=== PATIENT | female | born 1955 | race Caucasian/White ===

== ENCOUNTER 2018-07-07 04:03 | Emergency (ER) | payer MEDICAID, SELFPAY ==
[2018-07-07 04:07] VITALS: BP 170/89; PULSE 104; RESP 20; TEMP 36.7; O2SAT 96
[2018-07-07 04:22] VITALS: RESP 18
--- NOTE | 2018-07-07 04:27 | ED.GENADUL_ITS ---
Discharge Plan Disposition Patient Disposition: HOME Condition: Improving Discharge Details Chief Complaint: GenMedical Clinical Impression: Sinus infection, Sinus headache, Nausea Primary Care Provider: Koby Trimble ED Provider: Stephenie Almendarez Home Meds and New Rx's Prescriptions: New doxycycline hyclate 100 mg capsule 100 mg PO BID 7 Days Qty: 14 RF: 0 fluticasone [Flonase Allergy Relief] 50 mcg/actuation spray,suspension 1 spray CATALINA DAILY Qty: 16 RF: 0 Continue multivitamin [Daily Multi-Vitamin] 1 EACH tablet 1 ea PO DAILY RF: 0 omeprazole 10 MG capsule,delayed release(DR/EC) 20 mg PO DAILY RF: 0 simvastatin 20 MG tablet 40 mg PO DAILY RF: 0 metformin 1,000 MG tablet 1,000 mg PO BID RF: 0 vitamin E 400 UNIT capsule 400 unit PO DAILY RF: 0 ciclopirox [Loprox] 45 GM gel 45 gm Topical DAILY RF: 0 vitamin [id number] factor [Martinic] 1 EACH capsule 1 tab PO DAILY RF: 0 aspirin 325 MG tablet 325 mg PO DAILY Qty: 30 RF: 1 acetaminophen [Mapap Extra Strength] 500 MG tablet 1,000 mg PO Q8H PRN PRNQty: 100 RF: 3 latanoprost 0.005 % Drops 1 drp ophthalmic (eye) DAILY RF: 0 glyburide 5 mg Tablet 5 mg PO DAILY RF: 0 ibuprofen 800 mg Tablet 800 mg PO BID PRNRF: 0 indomethacin 50 mg Capsule 50 mg PO DAILY RF: 0 pioglitazone [Actos] 30 mg Tablet 30 mg PO DAILY RF: 0 cholecalciferol (vitamin D3) [Vitamin D3] 1,000 unit Capsule 1,000 unit PO DAILY RF: 0 omega 4-xcu-ona-fish oil [Fish Oil] 1,000 mg (120 mg-180 mg) Capsule 1,000 mg PO DAILY RF: 0 Discharge Instructions Instructions: Sinusitis (ED), Acute Nausea and Vomiting (ED), General Headache (ED) Additional Instructions: Drink plenty of fluids and get plenty of rest. Take the antibiotics until finished. Call your primary care doctor today to schedule follow-up appointment for evaluation. Return immediately to the emergency department any worsening or new concerning symptoms. Discharge Data Discharge Date/Time-TO BE ENTERED AT DEPARTURE: 07/07/18 06:19 Discharge Physician: Stephenie Almendarez Medical Decision Making 62-year-old female with a history of diabetes, hypertension, TIA who presents with multiple complaints since 6 PM last night. Main complaint is nausea, and frontal sinus headache. Also c/o nasal congestion, postnasal drip, cough with chest congestion, chest pain, neck pain, back pain, urinary frequency, dizziness. Blood pressure hypertensive, remainder vitals within normal limits. Afebrile. Patient appears nontoxic and in no acute distress. She has significant tenderness to palpation of her bilateral frontal and left maxillary sinuses. Left TM dull. Posterior pharynx normal. No uvular edema, exudates, submandibular swelling, drooling. Lungs clear to auscultation. Abdomen soft and nontender. No focal deficits. Differential diagnosis most likely appears consistent with sinus infection, migraine. Patient may also have a viral URI, flu, or viral syndrome, UTI. Denies sudden onset of headache or thunderclap quality making SAH unlikely. Denies fever and no meningeal signs, making meningitis unlikely. Considering patient's age and history, will check a CT head, chest x-ray, labs, urinalysis, EKG and give bolus IV fluids, Zofran and Decadron. If CT head negative, will give a dose of Toradol. EKG notes a rate of 89, sinus, no acute ST elevation or depression, T wave inversion in lead III. Q TC 482. QRS 100. QT interval of 480 can be normal in postpubertal females. No acute change from previous EKG. QTC from EKG July 2017 was 479. 0520 --labs and imaging reviewed and unremarkable. CT head and chest x-ray negative for acute findings. Magnesium 1.3. Troponin negative. Urinalysis negative. 0540 --patient feels much better and is requesting to go home. Denies chest pain. She thinks she was on Augmentin 1 month ago for a sinus infection so we will switch to doxycycline today. She is requesting to take the dose at home with her so she can eat first and is requesting one dose for tonight. Offered dose of magnesium here but she has this at home and would rather take it later. She is instructed to call her primary care doctor today to schedule follow-up for reevaluation. She is instructed to return here immediately if worse HPI General Mode of arrival: ambulatory . Date/Time Provider Initiated Documentation: 07/07/18 04:17 . Limitations to Documentation: no limitations . Information obtained by: patient . HPI Narrative: Patient is a 62-year-old female who presents to the ED with multiple complaints since 6 PM last. Patient states she was tossing and turning in bed and decided to come to the ED. Patient states her symptoms started with sneezing last night. She initially complained of sinus headache, nausea, nasal congestion, postnasal drip and then additionally complained of cough with chest congestion, chest pain, mid back pain, neck pain, burning in throat, left ear pain, dizziness, shortness of breath, and urinary frequency. Patient states her main complaint is the nausea and frontal headache. Patient states she had similar symptoms of headache and nasal congestion and was seen by her primary care doctor and was diagnosed with a sinus infection and treated with antibiotics and states her symptoms resolved. Past medical history: TIA, HTN, DM, HO Surgical history: Wrist repair, Tubal ligation, Rotator cuff repair, R oophrectomy, Appendectomy Social history: Denies tobacco, alcohol or drugs Medications: See list Allergies: Tetanus PCP: Dr. Olivarez Related Data Home Medications Medication Instructions Recorded Confirmed ciclopirox [Loprox] 45 gm TOPICAL DAILY NS 11/27/12 07/07/18 metformin 1,000 mg PO BID NS 11/27/12 07/07/18 multivitamin [Daily Multi-Vitamin] 1 ea PO DAILY NS 11/27/12 07/07/18 omeprazole 20 mg PO DAILY tab-cap NS 11/27/12 07/07/18 simvastatin 40 mg PO DAILY tab-cap NS 11/27/12 07/07/18 vitamin E 400 unit PO DAILY NS 11/27/12 07/07/18 vitamin N14-[id number] factor 1 tab PO DAILY 12/08/12 07/07/18 [Martinic] acetaminophen [Mapap Extra 1,000 mg PO Q8H PRN PRN #100 tab 08/31/17 07/07/18 Strength] aspirin 325 mg PO DAILY #30 tab-cap NS 08/31/17 07/07/18 cholecalciferol (vitamin D3) 1,000 unit PO DAILY 07/07/18 07/07/18 [Vitamin D3] doxycycline hyclate 100 mg PO BID 7 Days #14 cap 07/07/18 fluticasone [Flonase Allergy 1 spray CATALINA DAILY #16 gm 07/07/18 Relief] glyburide 5 mg PO DAILY 07/07/18 07/07/18 ibuprofen 800 mg PO BID PRN 07/07/18 07/07/18 indomethacin 50 mg PO DAILY 07/07/18 07/07/18 latanoprost 1 drp OPHTHALMIC (EYE) DAILY 07/07/18 07/07/18 omega 1-ysq-bvm-fish oil [Fish Oil] 1,000 mg PO DAILY 07/07/18 07/07/18 pioglitazone [Actos] 30 mg PO DAILY 07/07/18 07/07/18 Previous Rx's Medication Instructions Recorded acetaminophen [Mapap Extra 1,000 mg PO Q8H PRN PRN #100 tab 08/31/17 Strength] aspirin 325 mg PO DAILY #30 tab-cap NS 08/31/17 doxycycline hyclate 100 mg PO BID 7 Days #14 cap 07/07/18 fluticasone [Flonase Allergy 1 spray CATALINA DAILY #16 gm 07/07/18 Relief] Allergies Allergy/AdvReac Type Severity Reaction Status Date / Time tetanus toxoid, adsorbed Allergy Severe Anaphylaxsi Unverified 07/07/18 04:11 s Latex, Natural Rubber Allergy Intermediate Hives, Unverified 07/07/18 04:11 bandaids General Stated Complaint: GenMedical LINUS: 3 Review of Systems Review of Systems All systems reviewed & are unremarkable except as noted in HPI and below Constitutional Denies chills, Denies excessive sweating, Denies fatigue, Denies fever(s), Reports headache(s), Denies weakness and Denies weight loss Eyes Reports system reviewed and no additional complaints, except as docu and Denies blurry vision ENT Denies vertigo, Reports dizziness, Reports otalgia, Reports headache(s), Reports nasal congestion, Reports sore throat and Denies throat swelling Cardiovascular Reports chest pain, Denies syncope, Denies rapid heart rate and Reports dyspnea Respiratory Reports dyspnea Gastrointestinal Denies abdominal pain, Denies diarrhea, Reports nausea and Denies vomiting Genitourinary Denies hematuria, Reports urinary frequency, Denies dysuria and Denies flank pain Musculoskeletal Reports back pain and Denies joint swelling Integumentary/Breasts Denies lesions and Denies rash Neurologic Denies behavioral changes, Denies confusion, Denies vertigo, Reports dizziness, Denies syncope, Reports headache(s) and Denies weakness Psychiatric Denies behavioral changes, Denies confusion and Denies depression Endocrine Denies excessive sweating and Denies fatigue Hematologic/Lymphatic Denies easy bruising and Denies lymphadenopathy Allergic/Immunologic Denies throat swelling PFSH Family History Mother Diabetes Father Hypertensive disorder, systemic arterial Crohn's disease Cerebrovascular accident Medical History Benign hypertension Diabetes mellitus Hyperlipidemia Nonalcoholic steatohepatitis (HO) Transient ischemic attack Social History Smoking/Tobacco Use Status: Former Tobacco Use Surgical History Appendectomy Diagnostic Laproscopy Ligation of fallopian tube Oophrectomy, Right Rotator Cuff Repair repair wrist Exam Const General: cooperative and healthy appearing Orientation: alert and awake HENMT Head: normal to inspection Ears: hearing grossly normal bilaterally, external ears normal, TM normal on the right and TM normal on the left (Dull, w/o erythema ) General nose exam: external nose normal, nares normal and no nasal discharge Face and sinus: sinus tenderness (b/l frontal and L maxillary ) Mouth: oral mucosae normal Teeth and gingiva: dentition normal Throat: posterior oropharynx normal, uvula midline, no peritonsillar masses and no uvular edema Eyes General: appearance normal, both eyes and all related structures Eyelids: eyelids normal Pupils: PERRL EOM: EOM intact bilaterally Direct ophthalmoscopy: photophobia Neck Neck: normal visual inspection Lymphatic: no lymphadenopathy noted Chest Chest: normal inspection of the chest Resp Effort & Inspection: normal respiratory effort and able to speak in complete sentences Auscultation: clear to auscultation bilaterally Cardio Rate: regular rate Rhythm: regular rhythm GI Inspection: normal to inspection Palpation: soft, not firm, no guarding, no hepatosplenomegaly, no masses and nontender Auscultation: normal bowel sounds Back/Spine/Pelvis Back: no CVA tenderness Skin General skin exam: no rashes or lesions noted Neuro General: alert, awake and oriented x3 Cranial Nerves: CN's II-XI intact bilaterally Cognition: normal cognition Speech: speech normal Gait: normal gait Motor: muscle tone normal throughout and strength 5/5 throughout Sensory Exam: no sensory deficits noted Extrem General: normal to inspection, full ROM, normal capillary refill and no edema Psych Appearance: grossly normal Mental Status: mental status grossly normal Speech and Movement: speech and movement normal Affect: normal affect Thought Process: normal Course Vital Signs Temperature 98.1 F 07/07/18 04:07 Pulse 104 H 07/07/18 04:07 Respiratory Rate 20 07/07/18 04:07 Blood Pressure 170/89 H 07/07/18 04:07 Pulse Oximetry 96 07/07/18 04:07 Temperature 98.1 F 07/07/18 04:07 Temperature Source Temporal Artery Scan 07/07/18 04:07 Pulse 104 H 07/07/18 04:07 Respiratory Rate 20 07/07/18 04:07 Respiratory Effort Non-Labored 07/07/18 04:07 Blood Pressure 170/89 H 07/07/18 04:07 Blood Pressure Position Sitting 07/07/18 04:07 Pulse Oximetry 96 07/07/18 04:07 Oxygen Delivery Method Room Air 07/07/18 04:07 Oxygen Flow Rate 0 07/07/18 04:07
[2018-07-07 04:32] LABS: Bilirubin Negative (Negative); Blood Negative (Negative); Clarity Clear; Glucose Negative (Negative); Ketones Negative (Negative); Leukocyte Esterase Negative (Negative); Nitrite Negative (Negative); Urobilinogen 0.2 EU/dL (Up TO 0.2)
--- NOTE | 2018-07-07 04:50 | DI.CT_ITS ---
SYMPTOMS/DIAGNOSIS: HEADACHE, SINUS CONGESTION, SINUS PRESSURE, EAR PAIN, NAUSEA, COUGH, SUDDEN ONSET CT BRAIN: Noncontrast examination. Comparison MRI is 01/11/08. There is mild global cerebral atrophy. There are areas of decreased attenuation in the white matter , most consistent with small vessel ischemic disease. No acute intracranial hemorrhage, infarct, midline shift or mass effect is identified. The ventricles are intact. The basilar cisterns are patent. There do appear to be findings suggestive of empty sella. The visualized paranasal sinuses are clear. The mastoid air cells are well pneumatized. The calvarium is intact. IMPRESSION: No acute intracranial process. Followup as clinically appropriate.
--- NOTE | 2018-07-07 04:50 | DI.RAD_ITS ---
SYMPTOMS/DIAGNOSIS: COUGH, CHEST CONGESTION, ? ACUTE DISEASE CHEST X-RAY, PA AND LATERAL: There are no priors for comparison. The heart size and pulmonary vasculature are within normal limits. There is extensive calcification of the mitral valve. No effusions, infiltrates or pneumothoraces are identified. There is a question of an ovoid 0.7 cm density overlying the anterior aspect of the right 5th rib. This may represent a pulmonary or osseous nodule. Followup as clinically appropriate. Degenerative changes are seen in the spine. IMPRESSION: 1. No acute pulmonary process. 2. Question of a right pulmonary nodule. Followup is as clinically indicated. A CT scan of the chest should be considered for further evaluation.
--- NOTE | 2018-07-07 04:58 | DI.VRAD_ITS ---
EXAM: CT Head Without Intravenous Contrast EXAM DATE/TIME: 07/07/2018 4:22 AM CLINICAL HISTORY: 62 years old, female; Pain; Headache; Headache not specified; Patient HX: Sinus congestion, dizziness, and headache TECHNIQUE: Axial computed tomography images of the head/brain without intravenous contrast. All CT scans at this facility use at least one of these dose optimization techniques: automated exposure control; mA and/or kV adjustment per patient size (includes targeted exams where dose is matched to clinical indication); or iterative reconstruction. Coronal and sagittal reformatted images were created and reviewed. COMPARISON: No relevant prior studies available. FINDINGS: Brain: Decreased periventricular and subcortical attenuation compatible with chronic white matter ischemic change. No acute cerebrovascular accident. No acute intracranial hemorrhage. Ventricles: Prominent ventricles and cortical sulci compatible with mild volume loss/atrophy. Sella: Mild changes of empty sella. Bones/joints: Unremarkable. No acute fracture. Sinuses: Unremarkable as visualized. No acute sinusitis. Mastoid air cells: Unremarkable as visualized. No mastoid effusion. Soft tissues: Unremarkable. Vasculature: Atherosclerotic calcification intracranial vasculature without aneurysm. IMPRESSION: 1. No acute intracranial abnormalities. 2. If symptoms/signs persist, or if there is concern of an occult intracranial abnormality, then followup short interval CT or MRI would be recommended for further evaluation. Dictated and Authenticated by: Fox Acosta MD. Ordering:WILMAN SUERO MD
--- NOTE | 2018-07-07 05:00 | DI.VRAD_ITS ---
EXAM: XR Chest, 2 Views EXAM DATE/TIME: 07/07/2018 4:22 AM CLINICAL HISTORY: 62 years old, female; Signs and symptoms; Cough; Patient HX: Congestion, cough, ear pain, headache, nausea TECHNIQUE: XR of the chest, 2 views. COMPARISON: No relevant prior studies available. FINDINGS: Lungs: Lungs mildly hyperinflated but clear of an acute process. Pleural space: Unremarkable. No pleural effusion. No pneumothorax. Heart/Mediastinum: Heart size normal. Calcified mitral annulus. Vasculature: Atherosclerotic calcification within the aorta without aneurysm. Bones/joints: Degenerative changes noted throughout the spine. IMPRESSION: Mild hyperinflation. No acute intrathoracic process. Dictated and Authenticated by: Fox Acosta MD. Ordering:WILMAN SUERO MD
[2018-07-07] MEDS: Dexamethasone 10 MG/ML VIAL IVP (05:06)
[2018-07-07] MEDS: Prochlorperazine 10 MG/2 ML VIAL IVP (05:06)
[2018-07-07] MEDS: Normal Saline 1,000 ML 1000 ML IV (05:06)
[2018-07-07] MEDS: Ketorolac 30 MG/ML VIAL IVP (05:06)
[2018-07-07 05:07] LABS: Abs Immature Grans 0.01 k/cumm (0.0-0.09); Absolute Basophil Count 0.02 k/cumm (0.0-0.2); Absolute Eosinophil Count 0.05 k/cumm (0.0-0.7); Absolute Lymphocyte Count 1.51 k/cumm (1.2-3.4); Absolute Monocyte Count 0.55 k/cumm (0.11-0.7); Absolute Neutrophil Count 3.63 k/cumm (1.2-6.7); Basophils % 0.3; Eosinophils % 0.9; HGB 12.9 g/dL (12.0-15.5); Immature Grans % 0.2; Lymphocytes % 26.2; Mean Corp. HGB Concentration 33.9 g/dL (32.0-36.0); Mean Corpuscular Hemoglobin 32.3 pg (27.0-33.0); Mean Corpuscular Volume 95.2 fL (80-95); Mean Platelet Volume 9.1 fL (8.0-11.0); Monocytes % 9.5; Neutrophils % 62.9; Platelet Count 216 x1000/uL (130-400); RBC 3.99 m/cumm (4.00-5.20); RBC Distribution Width 12.8 % (11.7-14.6); White Blood Cell Count 5.77 k/cumm (4.4-10.8)
[2018-07-07 05:22] LABS: ALT 32 U/L (12-78); AST 19 U/L (15-37); Albumin 3.5 g/dL (3.4-5.0); Alkaline Phosphatase 52 U/L (46-116); Anion Gap 11.7 mmol/L (3-11); BUN 22 mg/dL (7-18); Bilirubin, Total 0.5 mg/dL (0.2-1.0); CO2 27.3 mmol/L (21.0-32.0); CREATININE 1.03 mg/dL (0.55-1.02); Calcium 8.9 mg/dL (8.5-10.1); Chloride 100 mmol/L (98-107); Estimated GFR 53.95 (mL/min/1.73m2); Glucose 127 mg/dL (70-100); Magnesium 1.3 mg/dL (1.8-2.4); Potassium 3.9 mmol/L (3.5-5.1); Sodium 139 mmol/L (136-145); Total Protein 6.9 g/dL (6.4-8.2)
[2018-07-07 05:23] LABS: Troponin I < 0.02 ng/mL (0.00-0.06)
[2018-07-07 06:04] VITALS: BP 170/89; PULSE 104; RESP 18; TEMP 37.1; O2SAT 96
[2018-07-07] MEDS: Doxycycline Hyclate 100 MG CAP PO ×2 (06:05→06:08)
== END 2018-07-07 06:19 | disposition home or self-care (01) ==
LOC: ER 06:15
PROVIDERS: Emergency Provider Physician Assistant; PCP Internal Medicine
DX: J01.90 Acute sinusitis, unspecified (principal); R51 Headache; R11.0 Nausea; I10 Essential (primary) hypertension; E11.9 Type 2 diabetes mellitus without complications; Z79.84 Long term (current) use of oral hypoglycemic drugs; E83.42 Hypomagnesemia
CPT/HCPCS: 36415; 80053; 87449; 93005; 96361; 96374; 96375; 99285; 70450; 71046; 81003; 83735; 84484; 85025; 93010; J0780; J1100; J1885

== ENCOUNTER 2018-07-11 00:45 | Outpatient (CLI) | payer MEDICAID, SELFPAY ==
--- NOTE | 2018-07-11 14:45 | DI.CT_ITS ---
SYMPTOMS/DIAGNOSIS: NIGHT SWEATS, R61, HEMOPTYSIS, R04.2, PULMONARY NODULE, R91.1 CT SCAN OF THE CHEST: CT scan of the chest was performed following the uneventful administration of intravenous contrast material. Comparison chest x-ray is 07/07/18. There are hypodense lesions seen in the visualized portion of the thyroid gland, the largest is seen in the inferior pole of the left lobe and measures 1.4 x 1.2 cm. There is atherosclerosis of the thoracic aorta but no aneurysmal dilatation is seen. No evidence of dissection is present. The heart size is within normal limits. No significant pericardial effusion is seen. There is extensive calcification of the mitral valve noted. Coronary artery calcifications are present. No pleural effusion or pneumothorax is identified. Air-space opacities are seen in the right upper lobe, right lower lobe, but particularly in the right middle lobe with smaller areas of consolidation seen in the right middle lobe. The left lung is generally clear. The tracheobronchial tree is unremarkable. Mildly enlarged lymph nodes are seen in the mediastinum and right hilum. The largest lymph node measures 1.2 cm. Upper abdominal images are grossly unremarkable. Degenerative changes are seen in the spine. IMPRESSION: 1. Ground-glass opacities in the right upper, middle and lower lobes. The findings are most marked in the right middle lobe where smaller areas of consolidation are seen. Primary diagnostic concern is for an infectious or inflammatory process including atypical pneumonias. No pulmonary nodules are seen. 2. Mildly enlarged lymph nodes in the mediastinum, which are likely reactive.
[2018-07-11] MEDS: Omnipaque 350 MG/ML 100 ML BTL IJ (14:47)
== END 2018-07-11 01:05 ==
PROVIDERS: PCP Internal Medicine; Visit Provider Physician Assistant Medical
DX: R61 Generalized hyperhidrosis (principal); R04.2 Hemoptysis; R91.1 Solitary pulmonary nodule; R91.8 Other nonspecific abnormal finding of lung field
CPT/HCPCS: 71260; J3490

== ENCOUNTER 2018-08-17 01:18 | Outpatient (CLI) | payer MEDICARE, SELFPAY ==
--- NOTE | 2018-08-17 13:40 | MERGE_ITS ---
*[facility]* *[facility]* [address] [place] [address] Date of study: 08/17/2018 Transthoracic Echocardiography M-mode, complete 2D, complete spectral Doppler, and color Doppler *STUDY CONCLUSIONS* Summary: 1. Left ventricle: The cavity size was normal. Wall thickness was increased in a pattern of severe LVH. Systolic function was hyperdynamic. The estimated ejection fraction was 65-70%. Findings consistent with diastolic dysfunction. Doppler parameters are consistent with high ventricular filling pressure. Moderate mid cavity gradient peak 24.7 mm HG, 2.5 m/s. 2. Mitral valve: Moderately calcified annulus. There was moderate to severe regurgitation directed eccentrically. Cannot identify flail leaflet / ruptured chord or vegetation on this study. 3. Left atrium: The atrium was mildly dilated. 4. Right ventricle: The cavity size was normal. Wall thickness was normal. Systolic function was normal. 5. Atrial septum: No defect or patent foramen ovale was identified. 6. Pulmonary arteries: Systolic pressure could not be accurately estimated. 7. Inferior vena cava: The vessel was patent and normal in size. The respirophasic diameter changes were in the normal range (greater than or equal to 50%), consistent with normal central venous pressure. *PATIENT PRESENTATION* Height: 154.9cm ((61in) ) S/D Pressure: 93 / 45 Weight: 81.6kg ((179.6lb) ) BSA: 1.91m^2 Test start time: 01:40 PM. Test stop time: 02:50 PM. ORDERING Koby Trimble MD REFERRING Koby Trimble MD PERFORMING [facility] ORAL PATHOLOGIST Melody Aguilar RT (R)(CT), [facility] PERFORMING [place] *PROCEDURE DATA* Procedure information: The patient was identified by two identifiers. This study was interpreted by [facility]. Pertinent images and digital data are archived for permanent storage and are available for subsequent review. No prior study was available for comparison. Study status: Routine. Transthoracic echocardiography. M-mode, complete 2D, complete spectral Doppler, and color Doppler. A Transthoracic Echocardiogram was performed. Scanning was performed from the parasternal, apical, subcostal, and suprasternal notch acoustic windows. Images were obtained using an [id number] cardiac ultrasound machine. Image quality was adequate. Study completion: The patient tolerated the procedure well. History: PMH: Slight bump in BNP, troponin negative, EKG negative, CXR is suggestive of heart failure. syncope. *CARDIAC ANATOMY* Left ventricle: The cavity size was normal. Wall thickness was increased in a pattern of severe LVH. Systolic function was hyperdynamic. The estimated ejection fraction was 65-70%. The tissue Doppler parameters were abnormal. Findings consistent with diastolic dysfunction. Doppler parameters are consistent with high ventricular filling pressure. Aortic valve: Trileaflet. Doppler: There was no stenosis. There was no regurgitation. VTI ratio of LVOT to aortic valve: 0.71. Valve area (VTI): 2.4cm^2. Indexed valve area (VTI): 1.2cm^2/m^2. Peak velocity ratio of LVOT to aortic valve: 0.77. Valve area (Vmax): 2.6cm^2. Indexed valve area (Vmax): 1.3cm^2/m^2. Mean velocity ratio of LVOT to aortic valve: 0.81. Valve area (Vmean): 2.7cm^2. Indexed valve area (Vmean): 1.4cm^2/m^2. Mean gradient (S): 4.2mm Hg. Peak gradient (S): 7.2mm Hg. Aorta: Aortic root: The aortic root was normal in size. Ascending aorta: The ascending aorta was normal in size. Mitral valve: Moderately calcified annulus. Doppler: There was no evidence for stenosis. There was moderate to severe regurgitation directed eccentrically. Valve area by pressure half-time: 1.9cm^2. Indexed valve area by pressure half-time: 1cm^2/m^2. Peak gradient (D): 4mm Hg. Left atrium: The atrium was mildly dilated. Atrial septum: No defect or patent foramen ovale was identified. Right ventricle: The cavity size was normal. Wall thickness was normal. Systolic function was normal. Pulmonic valve: Doppler: There was no evidence for stenosis. There was mild regurgitation. Tricuspid valve: Doppler: There was no significant regurgitation. Pulmonary artery: Poorly visualized. Systolic pressure could not be accurately estimated. Right atrium: The atrium was normal in size. Pericardium: A prominent pericardial fat pad was present. There was no pericardial effusion. Systemic veins: Inferior vena cava: Well visualized. The vessel was patent and normal in size. The respirophasic diameter changes were in the normal range (greater than or equal to 50%), consistent with normal central venous pressure. Baseline ECG: Normal sinus rhythm. Measurements Left ventricle Value Reference LV ID, ED, PLAX (L) 3.3 cm 3.5 - 6.0 LV ID, ES, PLAX (L) 2.0 cm 2.1 - 4.0 LV PW thickness, ED, PLAX 1.4 cm LV end-diastolic volume, 1-p A2C 55 ml LV ejection fraction, 1-p A2C 65 % LV end-diastolic volume, 1-p A4C 59 ml LV ejection fraction, 1-p A4C 63 % LV e', lateral 0.038 m/sec LV E/e', lateral 26 LV e', medial 0.051 m/sec LV E/e', medial 20 LV e', average 0.045 m/sec LV E/e', average 22 Ventricular septum Value Reference IVS thickness, ED, PLAX 1.4 cm LVOT Value Reference LVOT ID, A-P 2.1 cm LVOT area 3.3 cm^2 LVOT peak velocity, S 1.04 m/sec LVOT mean velocity, S 0.79 m/sec LVOT VTI, S 20.7 cm LVOT peak gradient, S 4.3 mm Hg LVOT mean gradient, S 2.7 mm Hg Stroke volume (SV), LVOT DP 69 ml Stroke index (SV/bsa), LVOT DP 36 ml/m^2 Aortic valve Value Reference Aortic valve peak velocity, S 1.3 m/sec Aortic valve mean velocity, S 0.97 m/sec Aortic valve VTI, S 29.0 cm Aortic mean gradient, S 4.2 mm Hg Aortic peak gradient, S 7.2 mm Hg VTI ratio, LVOT/AV 0.71 Aortic valve area, VTI 2.4 cm^2 Velocity ratio, peak, LVOT/AV 0.77 Aortic valve area, peak velocity 2.6 cm^2 Velocity ratio, mean, LVOT/AV 0.81 Aortic valve area, mean velocity 2.7 cm^2 Aortic valve area/bsa, mean velocity 1.4 cm^2/m^2 Aorta Value Reference Aortic root ID, ED 3.1 cm Ascending aorta ID, A-P, S 2.9 cm Left atrium Value Reference LA area, ES, A4C (H) 23.9 cm^2 8.8 - 23.4 LA area, ES, A2C 21 cm^2 LA volume/bsa, ES, 1-p A4C 45 ml/m^2 LA volume, ES, 2-p 75 ml LA volume/bsa, ES, 2-p 39 ml/m^2 Mitral valve Value Reference Mitral E-wave peak velocity 1 m/sec Mitral A-wave peak velocity 1.56 m/sec Mitral deceleration time (H) 403 ms 150 - 230 Mitral pressure half-time 117 ms Mitral peak gradient, D 4 mm Hg Mitral E/A ratio, peak 0.64 Mitral valve area, PHT, DP 1.9 cm^2 Right atrium Value Reference RA area, ES, A4C 11.3 cm^2 8.3 - 19.5 Legend: (L) and (H) chris values outside specified reference range. I have personally reviewed the images and have reviewed and edited the reported findings. Electronically signed by Anibal Galarza MD 08/17/2018 18:43
== END 2018-08-17 01:38 ==
PROVIDERS: PCP Internal Medicine; Visit Provider Internal Medicine
DX: I50.9 Heart failure, unspecified (principal); R55 Syncope and collapse; R79.89 Other specified abnormal findings of blood chemistry; I50.30 Unspecified diastolic (congestive) heart failure; I34.0 Nonrheumatic mitral (valve) insufficiency
CPT/HCPCS: 93306

== ENCOUNTER 2018-08-17 16:15 | Inpatient (IN) | payer MEDICARE, SELFPAY ==
[2018-08-17] VITALS (55 sets, daily range): BP systolic 75–138; BP diastolic 38–113; PULSE 73–104; RESP 11–24; TEMP 36.1–36.8; O2SAT 90–99
--- NOTE | 2018-08-17 16:25 | W.ED.GENAD ---
Discharge Plan Disposition Patient Disposition: [facility] INPATIENT Condition: Poor Discharge Details Chief Complaint: Dizzy/Sync Clinical Impression: Chest pain, Mitral regurgitation Reason For Visit: CHEST PAIN, MITRAL REGURGITATION Admit Date/Time: 08/17/18 20:11 Admit Provider: Faraz Hickman Attending Provider: Faraz Hickman Primary Care Provider: Koby Trimble ED Provider: Patrick Wolfe [facility] Course Hospital Course: Pleasant 63-year-old woman with a past medical history significant for diabetes, hypertension, and recent pneumonia presented to [facility] emergency department with complaints of chest pain and dyspnea. Mrs. Hayes is a diabetic woman with a past medical history significant for hypertension dyslipidemia and prior tobacco use. She also has a history of GERD, OA, HO, and obesity. The patient was reportedly in her usual state of health until the evening of July 06 when she recalls having a sudden onset of headache, chills, dizziness, chest pain, and shortness of breath while at home after dinner. She felt sick enough that she had her bring her to the emergency department for further evaluation early the next morning. She also reports having had sick contacts with her grandchild at home approximately 2 weeks prior to this. Further evaluation at [facility] emergency department was essentially negative, the patient was diagnosed with a potential sinusitis, and discharged with a prescription for both doxycycline and Flonase. The patient reports feeling better, and was seen in follow-up at her PCP's office approximately 4 days later, at which time a CT scan was obtained. This imaging showed groundglass opacities in the right upper, middle, and lower lobes concerning for an infectious or inflammatory process. She was informed by her PCPs office that her antibiotic was likely appropriate, and to continue until completion. Unfortunately Mrs. Kemps recurred and even worsened following the completion of antibiotic course. She was seen by her primary's office again, given a 5-day course of levofloxacin, but as she failed to improve she was sent to the emergency department. While records are unavailable, it was reported that a repeat CT scan showed evidence of both volume and potential unresolved infection, as the patient was prescribed a 10-day course of levofloxacin, low-dose oral furosemide, as well as an inhaler. Based on these results her primary care provider Dr. Koby Trimble also ordered an echocardiogram to be performed for further evaluation of potential heart failure. This test was completed today at [facility]. Mrs. Hayes reported back to [facility] emergency department following her echo as she continued to feel unwell. She reports continued and ongoing dyspnea, chest pain, and cough, along with nausea and vomiting. While she denies fevers she clearly endorses chills now ongoing over the last few weeks. Workup in the emergency department was relevant for an EKG without any significant changes and without any overt signs of ischemia, a negative chest x-ray, and a minimal elevation and proBNP. Her troponin was negative as well. She did have a minimal elevation in white blood count, as well as evidence of acute kidney injury with a creatinine that had doubled from her baseline. Her echo however showed evidence of diastolic dysfunction, severe LVH, and moderate to likely severe mitral regurgitation. While no evidence of vegetation was seen, possibility cannot be excluded based on the imaging by this transthoracic ultrasound. Given the above findings the patient was referred for admission for further evaluation and treatment. Overnight she remained hemodynamically stable, She was afebrile. serial troponins remained negative, white count remains normal. Creatinine improved to 1.4 with gentle IV hydration. She reports her symptoms are improved. She received supplemental potassium for potassium of 3.4. Her case was discussed with cardiology here at [facility]. Recommendations for ROXANNE to rule out endocarditis but unable to obtain today. Case discussed with Cardiology at [facility] who does not recommend emergent ROXANNE, unless patient becomes febrile or blood cultures are positive. Recommend outpatient work up for MR otherwise. Recommendations discussed with patient and her primary care provider, Dr Trimble who is in agreement with discharge and orders placed for repeat blood cultures and lab work tomorrow. Patient will monitor her temperatures at home and report fevers immediately. She was advised to return for new or worsening symptoms. Discharge Instructions Instructions: Mitral Regurgitation (DC), Dyspnea (GEN) Additional Instructions: discuss with primary care provider when to resume your aspirin Stop antibiotics (Levaquin) Take your temperature 3-4 times daily and report any fever immediately to your doctor. Return for any new or worsening symptoms. Have your blood drawn tomorrow, they can not draw the blood cultures in the office so you will need to go to the hospital for the blood draw. Forms: Nursing Discharge Form Referrals: Koby Trimble [Primary Care Provider] - 08/24/18 3:00 pm Discharge Data Discharge Date/Time-TO BE ENTERED AT DEPARTURE: 08/17/18 20:12 Medical Decision Making <Patrick Wolfe NP - Last Filed: 08/19/18 00:57> Patient presenting to the emergency department for chief complaint of dizziness, chest pain, and exertional shortness of breath. Patient states that this is been going on since May and has had multiple visits to both primary care and emergency department for evaluation. She does state in April she had a mild sinus infection that seemed to self resolve but has had some continued postnasal drip since patient was in echo testing today and started having some chest discomfort and dizziness after the test. Patient does state intermittent sharp chest pain on the left side that radiates somewhat into her back but is not persistent in nature. Patient does state a significant amount of stress due to her being diagnosed with prostate cancer and her wanting to feel well to be able to take care of him. Physical exam shows a anxious female that is tearful during examination, normal neurological exam, normal HEENT exam, cardiac exam reveals a holosystolic murmur heard more significantly on the right sternal border and with some radiation up into the right carotid but not so much into the left carotid. Physical exam is otherwise unremarkable with clear lung sounds, no abdominal pain, no abdominal mass or pulsatile mass no pedal edema. Plan to check labs including troponin, chest x-ray. Concern for valvular disorder/endocarditis causing symptoms so we will consult with cardiology after echo results are interpreted. Review of initial troponin is negative, acute renal changes showing GFR of 25 with previous results being 50s and 60s, mild leukocytosis, chest x-ray showing no acute findings. Spoke with cancer program coordinator Dr. Galarza whom states that echo interpretation shows moderate to severe mitral regurgitation and some left ventricular hypertrophy otherwise no cord rupture, no flail, from what can be seen on transthoracic echo. He did recommend second troponin and stress testing if possible. When speaking with him in regards to patient's other symptoms and concern for possible endocarditis he did state that given patient other symptoms that ROXANNE and blood cultures is reasonable. Second troponin was negative and hospitalist was consulted for admission pending further testing, blood culture results, and any further stabilization or treatment as needed. Spoke with Dr. Hickman he agreed to admit patient and continue care <Anibal White MD - Last Filed: 08/17/18 16:28> ECG Data Attestation: I personally reviewed and interpreted this ECG (s) as follows: Prior ECG tracings: available for review and not available for review Interpretation: sinus rhythm, rate of 94, qtc of 378 HPI <Patrick Wolfe NP - Last Filed: 08/19/18 00:57> General Mode of arrival: ambulatory. Date/Time Provider Initiated Documentation: 08/17/18 16:16. Limitations to Documentation: no limitations. Information obtained by: patient, RN notes reviewed and old records reviewed. History of Present Illness 63 year old F presents to the emergency department with the chief complaint of chest pain, dizziness, sob, described as moderate and similar to prior episodes, with intensity rated at 5. Quality is described as sharp, and is localized to the chest and back. Patient started experiencing this month(s) (2) and it has been constant and intermittent. No relieving factors improve symptom(s), No exacerbating factors reported . Patient did receive the following treatments prior to arrival, none Related Data Home Medications Medication Instructions Recorded Confirmed ciclopirox [Loprox] 45 gm TOPICAL DAILY NS 11/27/12 08/17/18 metformin 1,000 mg PO BID NS 11/27/12 08/17/18 multivitamin [Daily Multi-Vitamin] 1 ea PO DAILY NS 11/27/12 08/17/18 omeprazole 20 mg PO DAILY tab-cap NS 11/27/12 08/17/18 simvastatin 40 mg PO DAILY tab-cap NS 11/27/12 08/17/18 vitamin E 400 unit PO DAILY NS 11/27/12 08/17/18 Martinic 1 tab PO DAILY 12/08/12 08/17/18 acetaminophen [Mapap Extra 1,000 mg PO Q8H PRN PRN #100 tab 08/31/17 08/17/18 Strength] cholecalciferol (vitamin D3) 1,000 unit PO DAILY 07/07/18 08/17/18 [Vitamin D3] fluticasone [Flonase Allergy 1 spray CATALINA DAILY #16 gm 07/07/18 08/17/18 Relief] glyburide 5 mg PO DAILY 07/07/18 08/17/18 ibuprofen 800 mg PO BID PRN 07/07/18 08/17/18 indomethacin 50 mg PO DAILY 07/07/18 08/17/18 latanoprost 1 drp OPHTHALMIC (EYE) DAILY 07/07/18 08/17/18 omega [id number] oil [Fish Oil] 1,000 mg PO DAILY 07/07/18 08/17/18 pioglitazone [Actos] 30 mg PO DAILY 07/07/18 08/17/18 Ventolin HFA 2 puff INHALATION .Q4 HOURS PRN 08/17/18 08/17/18 cyanocobalamin (vitamin B-12) 1 tab PO DAILY 08/17/18 08/17/18 [Vitamin B-12] losartan 100 mg PO DAILY 08/17/18 08/17/18 magnesium 0.5 tab PO DAILY 08/17/18 08/17/18 Previous Rx's Medication Instructions Recorded acetaminophen [Mapap Extra 1,000 mg PO Q8H PRN PRN #100 tab 08/31/17 Strength] fluticasone [Flonase Allergy 1 spray CATALINA DAILY #16 gm 07/07/18 Relief] Allergies Allergy/AdvReac Type Severity Reaction Status Date / Time tetanus toxoid, adsorbed Allergy Severe Anaphylaxsi Unverified 08/17/18 16:29 s Latex, Natural Rubber Allergy Intermediate Hives, Unverified 08/17/18 16:29 bandaids General Stated Complaint: Dizzy/Sync LINUS: 2 Review of Systems <Patrick Wolfe NP - Last Filed: 08/19/18 00:57> Constitutional Reports chills, Reports fatigue, Denies fever(s) and Reports malaise Eyes Reports blurry vision ENT Reports dizziness, Reports post nasal drip and Reports sinus pressure Cardiovascular Reports as per HPI, Reports chest pain, Reports chest pain with activity, Denies syncope, Denies irregular heart rhythm, Denies palpitations and Reports dyspnea on exertion Respiratory Reports cough, Denies hemoptysis, Reports dyspnea on exertion and Denies wheezing Gastrointestinal Denies abdominal pain, Reports nausea and Reports vomiting Integumentary/Breasts Denies rash Neurologic Reports dizziness and Denies syncope Psychiatric Reports anxiety (due to family stressors) Endocrine Reports fatigue and Denies palpitations Allergic/Immunologic Denies wheezing PFSH <Patrick Wolfe NP - Last Filed: 08/19/18 00:57> Medical History History of tobacco abuse (Chronic) HO (nonalcoholic steatohepatitis) (Chronic) Hx of migraines (Chronic) Osteoarthritis (Chronic) Dyslipidemia (Chronic) GERD (gastroesophageal reflux disease) (Chronic) Hypertension (Chronic) Diabetes mellitus (Chronic) Benign hypertension Diabetes mellitus Hyperlipidemia Nonalcoholic steatohepatitis (HO) Transient ischemic attack Surgical History H/O hernia repair (Chronic) H/O unilateral oophorectomy (Chronic) H/O shoulder surgery (Chronic) H/O total hip arthroplasty (Chronic) Appendectomy Diagnostic Laproscopy Ligation of fallopian tube Oophrectomy, Right Rotator Cuff Repair repair wrist Family History Mother Diabetes Father Hypertensive disorder, systemic arterial Crohn's disease Stroke Social History Smoking/Tobacco Use Status: Former Tobacco Use additional social history: with 1 daughter. Retired from the [employer]. Former tobacco user. Reports social alcohol use only. Exam <Patrick Wolfe NP - Last Filed: 08/19/18 00:57> Const General: cooperative, healthy appearing, comfortable, no acute distress, anxious, not diaphoretic and not ill appearing Nutritional Appearance: average body habitus Orientation: alert, awake and oriented x3 Limitations: mental status not altered HENMT Head: normal to inspection and normocephalic Ears: hearing grossly normal bilaterally, external ears normal and TM's normal bilaterally General nose exam: external nose normal Face and sinus: normal facial exam Mouth: oral mucosae normal Throat: posterior oropharynx normal, tonsils normal and uvula midline Neck Neck: normal visual inspection, full ROM, no lymphadenopathy, trachea midline, supple and no anterior neck swelling Thyroid: thyroid normal Carotids: normal carotid upstroke and no bruits Resp Effort & Inspection: normal respiratory effort and able to speak in complete sentences Auscultation: clear to auscultation bilaterally Cardio Jugular venous pressure: no JVD Palpation: normal PMI Rate: regular rate Rhythm: regular rhythm Heart Sounds: S1 normal, S2 normal, no click, no gallops, murmur systolic holo, III/, with radiation to the carotids and at the right sternal border and no rubs Bruits: no abdominal aortic bruits and no carotid bruits Pulses: radial pulses present bilaterally 2+ GI Inspection: normal to inspection Palpation: soft, no aortic enlargement, no pulsatile masses and nontender Auscultation: normal bowel sounds Skin General skin exam: no rashes or lesions noted Neuro General: alert, awake, oriented x3, gait normal, tone normal, moves all extremities, no focal motor deficits and CN's II-XI intact bilaterally Course <Patrick Wolfe NP - Last Filed: 08/19/18 00:57> Vital Signs Temperature 36.6 C 08/17/18 16:21 Pulse 101 H 08/17/18 16:21 Respiratory Rate 18 08/17/18 16:21 Blood Pressure 138/59 L 08/17/18 16:21 Pulse Oximetry 99 08/17/18 16:21 Temperature 36.6 C 08/17/18 16:21 Temperature Source Temporal Artery Scan 08/17/18 16:21 Pulse 101 H 08/17/18 16:21 Respiratory Rate 18 08/17/18 16:21 Blood Pressure 138/59 L 08/17/18 16:21 Blood Pressure Position Supine 08/17/18 16:21 Pulse Oximetry 99 08/17/18 16:21 Oxygen Delivery Method Room Air 08/17/18 16:21 Oxygen Flow Rate 0 08/17/18 16:21
[2018-08-17] MEDS: LORazepam 2 MG/ML VIAL 0.5 MG IVP (17:06)
[2018-08-17] MEDS: Normal Saline Flush 10 ML SYR IVP (17:06)
[2018-08-17 17:07] LABS: Abs Immature Grans 0.02 k/cumm (0.0-0.09); Absolute Basophil Count 0.01 k/cumm (0.0-0.2); Absolute Lymphocyte Count 2.74 k/cumm (1.2-3.4); Absolute Monocyte Count 1.33 k/cumm (0.11-0.7); Absolute Neutrophil Count 7.36 k/cumm (1.2-6.7); Basophils % 0.1; Eosinophils % 0.9; HCT 42.3 % (36.0-46.0); HGB 14.7 g/dL (12.0-15.5); Immature Grans % 0.2; Lymphocytes % 23.7; Mean Corp. HGB Concentration 34.8 g/dL (32.0-36.0); Mean Corpuscular Hemoglobin 32.3 pg (27.0-33.0); Mean Platelet Volume 9.6 fL (8.0-11.0); Monocytes % 11.5; Neutrophils % 63.6; Platelet Count 332 x1000/uL (130-400); RBC 4.55 m/cumm (4.00-5.20); RBC Distribution Width 13.4 % (11.7-14.6); White Blood Cell Count 11.58 k/cumm (4.4-10.8)
--- NOTE | 2018-08-17 17:16 | DI.RAD_ITS ---
SYMPTOM/DIAGNOSIS: CHEST PAIN, SHORTNESS OF BREATH PA AND LATERAL CHEST: There is perhaps mild hyperinflation of the lungs. There is no infiltrate or mass, pleural effusion or pneumothorax. The heart is not enlarged. Calcification is noted in the apex of the aortic arach. There is no demonstrated aneurysm. The mediastinal structures are intact. No significant bony abnormality is seen. SUMMARY: No evidence of acute cardiopulmonary disease.
[2018-08-17 17:20] LABS: ALT 35 U/L (12-78); AST 21 U/L (15-37); Alkaline Phosphatase 55 U/L (46-116); Anion Gap 11.8 mmol/L (3-11); BUN 39 mg/dL (7-18); Bilirubin, Total 0.5 mg/dL (0.2-1.0); CO2 28.2 mmol/L (21.0-32.0); CREATININE 2.02 mg/dL (0.55-1.02); Calcium 9.8 mg/dL (8.5-10.1); Chloride 94 mmol/L (98-107); Estimated GFR 24.72 (mL/min/1.73m2); Glucose 164 mg/dL (70-100); Magnesium 1.5 mg/dL (1.8-2.4); Potassium 3.7 mmol/L (3.5-5.1); Sodium 134 mmol/L (136-145); Total Protein 7.9 g/dL (6.4-8.2)
[2018-08-17 17:31] LABS: Troponin I < 0.02 ng/mL (0.00-0.06)
[2018-08-17 17:42] LABS: INR 1.1 (1.0-3.5); PTT Activated 28.8 sec (21.0-31.4); Prothrombin Time 10.6 sec (9.3-11.0)
[2018-08-17 18:10] LABS: NT-proBNP 379 pg/mL; TSH (W/Ref FT4) 3.41 uIU/mL (0.358-3.74)
--- NOTE | 2018-08-17 18:18 | DI.VRAD_ITS ---
EXAM: XR Chest, 2 Views EXAM DATE/TIME: 08/17/2018 5:17 PM CLINICAL HISTORY: 63 years old, female; Pain and signs and symptoms; Shortness of breath; Chest pain; Type not specified; Patient HX: Chest pain, SOB, per PT: SOB since may; Additional info: Hip surg aug 29 TECHNIQUE: XR of the chest, 2 views. COMPARISON: CR XR CHEST 2V PA LATERAL 07/07/2018 4:23 AM FINDINGS: Lungs: The lung lu appear clear. Pleural space: No pleural effusion or pneumothorax is seen. Heart/Mediastinum: Heart size is normal. There is atherosclerotic calcification at the apex of the aortic arch. The upper mediastinal contours appear normal. Bones/joints: The visualized bony structures appear grossly unremarkable. IMPRESSION: No active disease is seen in the chest. Dictated and Authenticated by: Devin Fernandez MD. Ordering:FRANCESCO Nguyen MD
[2018-08-17 18:47] LABS: Bilirubin Negative (Negative); Blood Negative (Negative); Clarity Clear; Glucose Negative (Negative); Ketones Trace mg/dL (Negative); Leukocyte Esterase Negative (Negative); Nitrite Negative (Negative); Specific Gravity 1.015 (1.005-1.025); Urobilinogen 0.2 EU/dL (Up TO 0.2)
[2018-08-17 19:09] LABS: Bacteria Negative HPF (Negative); C & S Indicated? Yes; Casts 3-5 Fine Granular LPF (Negative); Crystals Moderate Amorphous HPF (Negative); Epithelial Cells Few HPF (Negative); Mucus Negative (Negative); RBC Negative (0-2)
[2018-08-17 19:45] LABS: Troponin I < 0.02 ng/mL (0.00-0.06)
--- NOTE | 2018-08-18 00:16 | W.PM.HP.N ---
Date of service: 08/18/18 Time of Service: 00:16 Assessment and Plan (1) Dyspnea: Current visit: Yes Status: Acute Constellation of symptoms including chest discomfort, dyspnea, chills, nausea and vomiting, all intermittent and ongoing for a few weeks duration. Mrs. Hayes has had a reported ill intact prior to the onset of all of her symptoms a few weeks back, as well as imaging findings with a CT showing potential infectious or inflammatory process. She has also had 3 courses of antibiotics, initially with doxycycline and then with Levaquin, and while she reports subjective improvement during treatment she has had recurrence of her symptoms following discontinuation of the antibiotic therapy. She also had presumed findings of potential CHF by imaging while at outside hospital, both lab work and imaging results are currently unavailable. Her current echo shows signs of severe LVH, diastolic heart failure, and significant mitral regurgitation. At this point unsure if the patient's symptoms represent an untreated and atypical pulmonary infection, inflammatory process, or potential cardiac source. Currently requesting CT images performed at [facility] last week, and will await results of both sputum and blood cultures. The patient also reports ongoing and significant chills at home without any fevers. Given the degree of valvulopathy with MR that was previously undiagnosed, as well as lack of mention of a murmur on prior ED visits, consideration may also be given to potential for endocarditis -cardiology input will be appreciated, and patient is going to be maintained on n.p.o. status for a potential transesophageal echocardiogram if deemed appropriate by cardiology. For now hold off on any further antibiotic therapy, monitor patient's vital signs, labs, and culture results. We will also check for influenza. (2) NANCY (acute kidney injury): Current visit: Yes Status: Acute Creatinine doubled by review of prior values. This is in the setting of infection, recent initiation of diuretic therapy, with concurrent daily use of ARB. This point likely etiology is prerenal -will hold Lasix, losartan, and metformin. Will gently hydrate, especially given recent history of potential heart failure. Monitor daily weights, renal function, and volume status carefully. (3) Hypertension: Current visit: Yes Status: Chronic Currently hypotensive, potentially in the setting of dehydration and acute illness. Hold off on losartan as mentioned above. Monitor blood pressures carefully while patient is being hydrated. (4) Diabetes mellitus: Current visit: Yes Status: Chronic Will hold outpatient metformin, Actos, and glyburide. Maintain on sliding scale coverage with an ADA diet and monitor blood sugars carefully. (5) GERD (gastroesophageal reflux disease): Current visit: Yes Status: Chronic Continue home PPI therapy. (6) Dyslipidemia: Current visit: Yes Status: Chronic Continue statin therapy. (7) DVT prophylaxis: Current visit: Yes Status: Acute SC heparin. History of Present Illness Chief Complaint: Dyspnea, chest Narrative: Pleasant 63-year-old woman with a past medical history significant for diabetes, hypertension, and recent pneumonia presented to [facility] emergency department with complaints of chest pain and dyspnea. Mrs. Hayes is a diabetic woman with a past medical history significant for hypertension dyslipidemia and prior tobacco use. She also has a history of GERD, OA, HO, and obesity. The patient was reportedly in her usual state of health until the evening of July 06 when she recalls having a sudden onset of headache, chills, dizziness, chest pain, and shortness of breath while at home after dinner. She felt sick enough that she had her bring her to the emergency department for further evaluation early the next morning. She also reports having had sick contacts with her grandchild at home approximately 2 weeks prior to this. Further evaluation at [facility] emergency department was essentially negative, the patient was diagnosed with a potential sinusitis, and discharged with a prescription for both doxycycline and Flonase. The patient reports feeling better, and was seen in follow-up at her PCP's office approximately 4 days later, at which time a CT scan was obtained. This imaging showed groundglass opacities in the right upper, middle, and lower lobes concerning for an infectious or inflammatory process. She was informed by her PCPs office that her antibiotic was likely appropriate, and to continue until completion. Unfortunately Mrs. Kemps recurred and even worsened following the completion of antibiotic course. She was seen by her primary's office again, given a 5-day course of levofloxacin, but as she failed to improve she was sent to the emergency department. While records are unavailable, it was reported that a repeat CT scan showed evidence of both volume and potential unresolved infection, as the patient was prescribed a 10-day course of levofloxacin, low-dose oral furosemide, as well as an inhaler. Based on these results her primary care provider Dr. Koby Trimble also ordered an echocardiogram to be performed for further evaluation of potential heart failure. This test was completed today at [facility]. Mrs. Hayes reported back to [facility] emergency department following her echo as she continued to feel unwell. She reports continued and ongoing dyspnea, chest pain, and cough, along with nausea and vomiting. While she denies fevers she clearly endorses chills now ongoing over the last few weeks. Workup in the emergency department was relevant for an EKG without any significant changes and without any overt signs of ischemia, a negative chest x-ray, and a minimal elevation and proBNP. Her troponin was negative as well. She did have a minimal elevation in white blood count, as well as evidence of acute kidney injury with a creatinine that had doubled from her baseline. Her echo however showed evidence of diastolic dysfunction, severe LVH, and moderate to likely severe mitral regurgitation. While no evidence of vegetation was seen, possibility cannot be excluded based on the imaging by this transthoracic ultrasound. Given the above findings the patient was referred for admission for further evaluation and treatment. Review of Systems Review of Systems All systems reviewed & are unremarkable except as noted in HPI and below [facility] Medical History History of tobacco abuse (Chronic) HO (nonalcoholic steatohepatitis) (Chronic) Hx of migraines (Chronic) Osteoarthritis (Chronic) Dyslipidemia (Chronic) GERD (gastroesophageal reflux disease) (Chronic) Hypertension (Chronic) Diabetes mellitus (Chronic) Benign hypertension Diabetes mellitus Hyperlipidemia Nonalcoholic steatohepatitis (HO) Transient ischemic attack Surgical History H/O hernia repair (Chronic) H/O unilateral oophorectomy (Chronic) H/O shoulder surgery (Chronic) H/O total hip arthroplasty (Chronic) Appendectomy Diagnostic Laproscopy Ligation of fallopian tube Oophrectomy, Right Rotator Cuff Repair repair wrist Family History Mother Diabetes Father Hypertensive disorder, systemic arterial Crohn's disease Stroke Social History Smoking/Tobacco Use Status: Former Tobacco Use additional social history: with 1 daughter. Retired from the [employer]. Former tobacco user. Reports social alcohol use only. Meds Home Medications Medication Instructions Recorded Confirmed Type ciclopirox [Loprox] 45 gm TOPICAL DAILY NS 11/27/12 08/17/18 History metformin 1,000 mg PO BID NS 11/27/12 08/17/18 History multivitamin [Daily Multi-Vitamin] 1 ea PO DAILY NS 11/27/12 08/17/18 History omeprazole 20 mg PO DAILY tab-cap NS 11/27/12 08/17/18 History simvastatin 40 mg PO DAILY tab-cap NS 11/27/12 08/17/18 History vitamin E 400 unit PO DAILY NS 11/27/12 08/17/18 History Martinic 1 tab PO DAILY 12/08/12 08/17/18 History acetaminophen [Mapap Extra 1,000 mg PO Q8H PRN PRN #100 tab 08/31/17 08/17/18 Rx Strength] aspirin 325 mg PO DAILY #30 tab-cap NS 08/31/17 08/17/18 Rx cholecalciferol (vitamin D3) 1,000 unit PO DAILY 07/07/18 08/17/18 History [Vitamin D3] fluticasone [Flonase Allergy 1 spray [place] DAILY #16 gm 07/07/18 08/17/18 Rx Relief] glyburide 5 mg PO DAILY 07/07/18 08/17/18 History ibuprofen 800 mg PO BID PRN 07/07/18 08/17/18 History indomethacin 50 mg PO DAILY 07/07/18 08/17/18 History latanoprost 1 drp OPHTHALMIC (EYE) DAILY 07/07/18 08/17/18 History omega 4-goc-cmo-fish oil [Fish Oil] 1,000 mg PO DAILY 07/07/18 08/17/18 History pioglitazone [Actos] 30 mg PO DAILY 07/07/18 08/17/18 History albuterol sulfate [Ventolin HFA] 2 puff INHALATION .Q4 HOURS PRN 08/17/18 08/17/18 History cyanocobalamin (vitamin B-12) 1 tab PO DAILY 08/17/18 08/17/18 History [Vitamin B-12] levofloxacin 750 mg PO DAILY 08/17/18 08/17/18 History losartan 100 mg PO DAILY 08/17/18 08/17/18 History magnesium 0.5 tab PO DAILY 08/17/18 08/17/18 History Allergies Allergy/AdvReac Type Severity Reaction Status Date / Time tetanus toxoid, adsorbed Allergy Severe Anaphylaxsi Unverified 08/17/18 16:29 s Latex, Natural Rubber Allergy Intermediate Hives, Unverified 08/17/18 16:29 bandaids Exam Narrative Exam Narrative: General: Patient appears comfortable, AAOX3, NAD Neck: Supple CV: Regular, nontachycardic, S1S2, 2-3/6 LLSB murmur. Pulmonary: Clear to auscultation bilaterally, no crackles, wheezing, or rhonchi Abdomen: + Bowel Sounds, soft, nontender, nondistended Vascular: No lower extremity edema Neurologic: CN II-XII grossly intact. No focal deficits. Psych: Normal mood and affect. Results Imaging Additional studies: EXAM: XR Chest, 2 Views EXAM DATE/TIME: 08/17/2018 5:17 PM CLINICAL HISTORY: 63 years old, female; Pain and signs and symptoms; Shortness of breath; Chest pain; Type not specified; Patient HX: Chest pain, SOB, per PT: SOB since may; Additional info: Hip surg aug 29 TECHNIQUE: XR of the chest, 2 views. COMPARISON: CR XR CHEST 2V PA LATERAL 07/07/2018 4:23 AM FINDINGS: Lungs: The lung lu appear clear. Pleural space: No pleural effusion or pneumothorax is seen. Heart/Mediastinum: Heart size is normal. There is atherosclerotic calcification at the apex of the aortic arch. The upper mediastinal contours appear normal. Bones/joints: The visualized bony structures appear grossly unremarkable. IMPRESSION: No active disease is seen in the chest. Exam(s) a US:US echocardiogram *[facility]* *[facility]* [address] [place] [address] Date of study: 08/17/2018 Transthoracic Echocardiography M-mode, complete 2D, complete spectral Doppler, and color Doppler *STUDY CONCLUSIONS* Summary: 1. Left ventricle: The cavity size was normal. Wall thickness was increased in a pattern of severe LVH. Systolic function was hyperdynamic. The estimated ejection fraction was 65-70%. Findings consistent with diastolic dysfunction. Doppler parameters are consistent with high ventricular filling pressure. Moderate mid cavity gradient peak 24.7 mm HG, 2.5 m/s. 2. Mitral valve: Moderately calcified annulus. There was moderate to severe regurgitation directed eccentrically. Cannot identify flail leaflet / ruptured chord or vegetation on this study. 3. Left atrium: The atrium was mildly dilated. 4. Right ventricle: The cavity size was normal. Wall thickness was normal. Systolic function was normal. 5. Atrial septum: No defect or patent foramen ovale was identified. 6. Pulmonary arteries: Systolic pressure could not be accurately estimated. 7. Inferior vena cava: The vessel was patent and normal in size. The respirophasic diameter changes were in the normal range (greater than or equal to 50%), consistent with normal central venous pressure. Labs : 08/17/18 16:28 08/17/18 16:28 Laboratory Results - last 24 hr 08/17/18 08/17/18 08/17/18 16:28 16:28 16:28 WBC RBC Hgb Hct MCV MCH MCHC RDW Plt Count MPV Immature Gran % Neutrophils % Lymphocytes % Monocytes % Eosinophils % Basophils % Absolute Neutrophils Absolute Lymphocytes Absolute Monocytes Absolute Eosinophils Absolute Basophils PT 10.6 INR 1.1 APTT 28.8 Sodium 134 L Potassium 3.7 Chloride 94 L Carbon Dioxide 28.2 Anion Gap 11.8 H BUN 39 H Creatinine 2.02 H Estimated GFR/1.73 m2 24.72 Glucose 164 H Calcium 9.8 Magnesium 1.5 L Total Bilirubin 0.5 AST 21 ALT 35 Alkaline Phosphatase 55 Troponin I < 0.02 NT-Pro-B Natriuret Pep 379 H Total Protein 7.9 Albumin 4.0 TSH 3.41 Urine Color Urine Clarity Urine pH Ur Specific [place] Urine Protein Urine Ketones Urine Blood Urine Nitrite Urine Bilirubin Urine Urobilinogen Ur Leukocyte Esterase Urine RBC Urine WBC Ur Epithelial Cells Urine Crystals Urine Bacteria Urine Casts Urine Mucus Ur Culture Indicated? Urine Glucose 08/17/18 08/17/18 08/17/18 16:28 18:35 19:25 WBC 11.58 H RBC 4.55 Hgb 14.7 Hct 42.3 MCV 93.0 MCH 32.3 MCHC 34.8 RDW 13.4 Plt Count 332 MPV 9.6 Immature Gran % 0.2 Neutrophils % 63.6 Lymphocytes % 23.7 Monocytes % 11.5 Eosinophils % 0.9 Basophils % 0.1 Absolute Neutrophils 7.36 H Absolute Lymphocytes 2.74 Absolute Monocytes 1.33 H Absolute Eosinophils 0.10 Absolute Basophils 0.01 PT INR APTT Sodium Potassium Chloride Carbon Dioxide Anion Gap BUN Creatinine Estimated GFR/1.73 m2 Glucose Calcium Magnesium Total Bilirubin AST ALT Alkaline Phosphatase Troponin I < 0.02 NT-Pro-B Natriuret Pep Total Protein Albumin TSH Urine Color Yellow Urine Clarity Clear Urine pH 6.0 Ur Specific [place] 1.015 Urine Protein Trace H Urine Ketones Trace H Urine Blood Negative Urine Nitrite Negative Urine Bilirubin Negative Urine Urobilinogen 0.2 Ur Leukocyte Esterase Negative Urine RBC Negative Urine WBC 3-5 Ur Epithelial Cells Few Urine Crystals Moderate amorphous Urine Bacteria Negative Urine Casts 3-5 fine granular Urine Mucus Negative Ur Culture Indicated? Yes Urine Glucose Negative Last Vital Signs Temp 36.8 C 08/17/18 23:45 Pulse 73 08/17/18 23:45 Resp 18 08/17/18 23:45 BP 105/55 L 08/17/18 23:45 Pulse Ox 96 08/17/18 23:45
--- NOTE | 2018-08-18 00:23 | HPE_ITS ---
Date of service: 08/18/18 Time of Service: 00:16 Assessment and Plan (1) Dyspnea: Current visit: Yes Status: Acute Constellation of symptoms including chest discomfort, dyspnea, chills, nausea and vomiting, all intermittent and ongoing for a few weeks duration. Mrs. Hayes has had a reported ill intact prior to the onset of all of her symptoms a few weeks back, as well as imaging findings with a CT showing potential infectious or inflammatory process. She has also had 3 courses of antibiotics, initially with doxycycline and then with Levaquin, and while she reports subjective improvement during treatment she has had recurrence of her symptoms following discontinuation of the antibiotic therapy. She also had presumed findings of potential CHF by imaging while at outside hospital, both lab work and imaging results are currently unavailable. Her current echo shows signs of severe LVH, diastolic heart failure, and significant mitral regurgitation. At this point unsure if the patient's symptoms represent an untreated and atypical pulmonary infection, inflammatory process, or potential cardiac source. Currently requesting CT images performed at [facility] last week, and will await results of both sputum and blood cultures. The patient also reports ongoing and significant chills at home without any fevers. Given the degree of valvulopathy with MR that was previously undiagnosed, as well as lack of mention of a murmur on prior ED visits, consideration may also be given to po tential for endocarditis -cardiology input will be appreciated, and patient is going to be maintained on n.p.o. status for a potential transesophageal echocardiogram if deemed appropriate by cardiology. For now hold off on any further antibiotic therapy, monitor patient's vital signs, labs, and culture results. We will also check for influenza. (2) NANCY (acute kidney injury): Current visit: Yes Status: Acute Creatinine doubled by review of prior values. This is in the setting of infection, recent initiation of diuretic therapy, with concurrent daily use of ARB. This point likely etiology is prerenal -will hold Lasix, losartan, and metformin. Will gently hydrate, especially given recent history of potential heart failure. Monitor daily weights, renal function, and volume status carefully. (3) Hypertension: Current visit: Yes Status: Chronic Currently hypotensive, potentially in the setting of dehydration and acute illness. Hold off on losartan as mentioned above. Monitor blood pressures carefully while patient is being hydrated. (4) Diabetes mellitus: Current visit: Yes Status: Chronic Will hold outpatient metformin, Actos, and glyburide. Maintain on sliding scale coverage with an ADA diet and monitor blood sugars carefully. (5) GERD (gastroesophageal reflux disease): Current visit: Yes Status: Chronic Continue home PPI therapy. (6) Dyslipidemia: Current visit: Yes Status: Chronic Continue statin therapy. (7) DVT prophylaxis: Current visit: Yes Status: Acute SC heparin. History of Present Illness Chief Complaint: Dyspnea, chest Narrative: Pleasant 63-year-old woman with a past medical history significant for diabetes, hypertension, and recent pneumonia presented to [facility] emergency department with complaints of chest pain and dyspnea. Mrs. Hayes is a diabetic woman with a past medical history significant for hypertension dyslipidemia and prior tobacco use. She also has a history of GERD, OA, HO, and obesity. The patient was reportedly in her usual state of health until the evening of July 06 when she recalls having a sudden onset of headache, chills, dizziness, chest pain, and shortness of breath while at home after dinner. She felt sick enough that she had her bring her to the emergency department for further evaluation early the next morning. She also reports having had sick contacts with her grandchild at home approximately 2 weeks prior to this. Further evaluation at [facility] emergency department was essentially negative, the patient was diagnosed with a potential sinusitis, and discharged with a prescription for both doxycycline and Flonase. The patient reports feeling better, and was seen in follow-up at her PCP's office approximately 4 days later, at which time a CT scan was obtained. This imaging showed groundglass opacities in the right upper, middle, and lower lobes concerning for an infectious or inflammatory process. She was informed by her PCPs office that her antibiotic was likely appropriate, and to continue until completion. Unfortunately Mrs. Kemps recurred and even worsened following the completion of antibiotic course. She was seen by her primary's office again, given a 5-day course of levofloxacin, but as she failed to improve she was sent to the emergency department. While records are unavailable, it was reported that a repeat CT scan showed evidence of both volume and potential unresolved infection, as the patient was prescribed a 10-day course of levofloxacin, low- dose oral furosemide, as well as an inhaler. Based on these results her primary care provider Dr. Koby Trimble also ordered an echocardiogram to be performed for further evaluation of potential heart failure. This test was completed today at [facility]. Mrs. Hayes reported back to [facility] emergency department following her echo as she continued to feel unwell. She reports continued and ongoing dyspnea, chest pain, and cough, along with nausea and vomiting. While she denies fevers she clearly endorses chills now ongoing over the last few weeks. Workup in the emergency department was relevant for an EKG without any significant changes and without any overt signs of ischemia, a negative chest x-ray, and a minimal elevation and proBNP. Her troponin was negative as well. She did have a minimal elevation in white blood count, as well as evidence of acute kidney injury with a creatinine that had doubled from her baseline. Her echo however showed evidence of diastolic dysfunction, severe LVH, and moderate to likely severe mitral regurgitation. While no evidence of vegetation was seen, possibility cannot be excluded based on the imaging by this transthoracic ultrasound. Given the above findings the patient was referred for admission for further evaluation and treatment. Review of Systems Review of Systems All systems reviewed & are unremarkable except as noted in HPI and below [facility] Medical History History of tobacco abuse (Chronic) HO (nonalcoholic steatohepatitis) (Chronic) Hx of migraines (Chronic) Osteoarthritis (Chronic) Dyslipidemia (Chronic) GERD (gastroesophageal reflux disease) (Chronic) Hypertension (Chronic) Diabetes mellitus (Chronic) Benign hypertension Diabetes mellitus Hyperlipidemia Nonalcoholic steatohepatitis (HO) Transient ischemic attack Surgical History H/O hernia repair (Chronic) H/O unilateral oophorectomy (Chronic) H/O shoulder surgery (Chronic) H/O total hip arthroplasty (Chronic) Appendectomy Diagnostic Laproscopy Ligation of fallopian tube Oophrectomy, Right Rotator Cuff Repair repair wrist Family History Mother Diabetes Father Hypertensive disorder, systemic arterial Crohn's disease Stroke Social History Smoking/Tobacco Use Status: Former Tobacco Use additional social history: with 1 daughter. Retired from the [employer]. Former tobacco user. Reports social alcohol use only. Meds Home Medications Medication Instructions Recorded Confirmed Type ciclopirox [Loprox] 45 gm TOPICAL DAILY NS 11/27/12 08/17/18 History metformin 1,000 mg PO BID NS 11/27/12 08/17/18 History multivitamin [Daily Multi-Vitamin] 1 ea PO DAILY NS 11/27/12 08/17/18 History omeprazole 20 mg PO DAILY tab-cap NS 11/27/12 08/17/18 History simvastatin 40 mg PO DAILY tab-cap NS 11/27/12 08/17/18 History vitamin E 400 unit PO DAILY NS 11/27/12 08/17/18 History Martinic 1 tab PO DAILY 12/08/12 08/17/18 History acetaminophen [Mapap Extra 1,000 mg PO Q8H PRN PRN #100 tab 08/31/17 08/17/18 Rx Strength] aspirin 325 mg PO DAILY #30 tab-cap NS 08/31/17 08/17/18 Rx cholecalciferol (vitamin D3) 1,000 unit PO DAILY 07/07/18 08/17/18 History [Vitamin D3] fluticasone [Flonase Allergy 1 spray [place] DAILY #16 gm 07/07/18 08/17/18 Rx Relief] glyburide 5 mg PO DAILY 07/07/18 08/17/18 History ibuprofen 800 mg PO BID PRN 07/07/18 08/17/18 History indomethacin 50 mg PO DAILY 07/07/18 08/17/18 History latanoprost 1 drp OPHTHALMIC (EYE) DAILY 07/07/18 08/17/18 History omega [id number] oil [Fish Oil] 1,000 mg PO DAILY 07/07/18 08/17/18 History pioglitazone [Actos] 30 mg PO DAILY 07/07/18 08/17/18 History albuterol sulfate [Ventolin HFA] 2 puff INHALATION .Q4 HOURS PRN 08/17/18 08/17/18 History cyanocobalamin (vitamin B-12) 1 tab PO DAILY 08/17/18 08/17/18 History [Vitamin B-12] levofloxacin 750 mg PO DAILY 08/17/18 08/17/18 History losartan 100 mg PO DAILY 08/17/18 08/17/18 History magnesium 0.5 tab PO DAILY 08/17/18 08/17/18 History Allergies Allergy/AdvReac Type Severity Reaction Status Date / Time tetanus toxoid, adsorbed Allergy Severe Anaphylaxsi Unverified 08/17/18 16:29 s Latex, Natural Rubber Allergy Intermediate Hives, Unverified 08/17/18 16:29 bandaids Exam Narrative Exam Narrative: General: Patient appears comfortable, AAOX3, NAD Neck: Supple CV: Regular, nontachycardic, S1S2, 2-3/6 LLSB murmur. Pulmonary: Clear to auscultation bilaterally, no crackles, wheezing, or rhonchi Abdomen: + Bowel Sounds, soft, nontender, nondistended Vascular: No lower extremity edema Neurologic: CN II-XII grossly intact. No focal deficits. Psych: Normal mood and affect. Results Imaging Additional studies: EXAM: XR Chest, 2 Views EXAM DATE/TIME: 08/17/2018 5:17 PM CLINICAL HISTORY: 63 years old, female; Pain and signs and symptoms; Shortness of breath; Chest pain; Type not specified; Patient HX: Chest pain, SOB, per PT: SOB since may; Additional info: Hip surg aug 29 TECHNIQUE: XR of the chest, 2 views. COMPARISON: CR XR CHEST 2V PA LATERAL 07/07/2018 4:23 AM FINDINGS: Lungs: The lung lu appear clear. Pleural space: No pleural effusion or pneumothorax is seen. Heart/Mediastinum: Heart size is normal. There is atherosclerotic calcification at the apex of the aortic arch. The upper mediastinal contours appear normal. Bones/joints: The visualized bony structures appear grossly unremarkable. IMPRESSION: No active disease is seen in the chest. Exam(s) a US:US echocardiogram *[facility]* * Cardiology* [address] [place] [address] Date of study: 08/17/2018 Transthoracic Echocardiography M-mode, complete 2D, complete spectral Doppler, and color Doppler *STUDY CONCLUSIONS* Summary: 1. Left ventricle: The cavity size was normal. Wall thickness was increased in a pattern of severe LVH. Systolic function was hyperdynamic. The estimated ejection fraction was 65-70%. Findings consistent with diastolic dysfunction. Doppler parameters are consistent with high ventricular filling pressure. Moderate mid cavity gradient peak 24.7 mm HG, 2.5 m/s. 2. Mitral valve: Moderately calcified annulus. There was moderate to severe regurgitation directed eccentrically. Cannot identify flail leaflet / ruptured chord or vegetation on this study. 3. Left atrium: The atrium was mildly dilated. 4. Right ventricle: The cavity size was normal. Wall thickness was normal. Systolic function was normal. 5. Atrial septum: No defect or patent foramen ovale was identified. 6. Pulmonary arteries: Systolic pressure could not be accurately estimated. 7. Inferior vena cava: The vessel was patent and normal in size. The respirophasic diameter changes were in the normal range (greater than or equal to 50%), consistent with normal central venous pressure. Labs : 08/17/18 16:28 08/17/18 16:28 Laboratory Results - last 24 hr 08/17/18 08/17/18 08/17/18 16:28 16:28 16:28 WBC RBC Hgb Hct MCV MCH MCHC RDW Plt Count MPV Immature Gran % Neutrophils % Lymphocytes % Monocytes % Eosinophils % Basophils % Absolute Neutrophils Absolute Lymphocytes Absolute Monocytes Absolute Eosinophils Absolute Basophils PT 10.6 INR 1.1 APTT 28.8 Sodium 134 L Potassium 3.7 Chloride 94 L Carbon Dioxide 28.2 Anion Gap 11.8 H BUN 39 H Creatinine 2.02 H Estimated GFR/1.73 m2 24.72 Glucose 164 H Calcium 9.8 Magnesium 1.5 L Total Bilirubin 0.5 AST 21 ALT 35 Alkaline Phosphatase 55 Troponin I < 0.02 NT-Pro-B Natriuret Pep 379 H Total Protein 7.9 Albumin 4.0 TSH 3.41 Urine Color Urine Clarity Urine pH Ur Specific [place] Urine Protein Urine Ketones Urine Blood Urine Nitrite Urine Bilirubin Urine Urobilinogen Ur Leukocyte Esterase Urine RBC Urine WBC Ur Epithelial Cells Urine Crystals Urine Bacteria Urine Casts Urine Mucus Ur Culture Indicated? Urine Glucose 08/17/18 08/17/18 08/17/18 16:28 18:35 19:25 WBC 11.58 H RBC 4.55 Hgb 14.7 Hct 42.3 MCV 93.0 MCH 32.3 MCHC 34.8 RDW 13.4 Plt Count 332 MPV 9.6 Immature Gran % 0.2 Neutrophils % 63.6 Lymphocytes % 23.7 Monocytes % 11.5 Eosinophils % 0.9 Basophils % 0.1 Absolute Neutrophils 7.36 H Absolute Lymphocytes 2.74 Absolute Monocytes 1.33 H Absolute Eosinophils 0.10 Absolute Basophils 0.01 PT INR APTT Sodium Potassium Chloride Carbon Dioxide Anion Gap BUN Creatinine Estimated GFR/1.73 m2 Glucose Calcium Magnesium Total Bilirubin AST ALT Alkaline Phosphatase Troponin I < 0.02 NT-Pro-B Natriuret Pep Total Protein Albumin TSH Urine Color Yellow Urine Clarity Clear Urine pH 6.0 Ur Specific [place] 1.015 Urine Protein Trace H Urine Ketones Trace H Urine Blood Negative Urine Nitrite Negative Urine Bilirubin Negative Urine Urobilinogen 0.2 Ur Leukocyte Esterase Negative Urine RBC Negative Urine WBC 3-5 Ur Epithelial Cells Few Urine Crystals Moderate amorphous Urine Bacteria Negative Urine Casts 3-5 fine granular Urine Mucus Negative Ur Culture Indicated? Yes Urine Glucose Negative Last Vital Signs Temp 36.8 C 08/17/18 23:45 Pulse 73 08/17/18 23:45 Resp 18 08/17/18 23:45 BP 105/55 L 08/17/18 23:45 Pulse Ox 96 08/17/18 23:45
[2018-08-18] MEDS: MAGNESIUM SULFATE 1 GM/100 ML BAG IVPB (01:25)
[2018-08-18] MEDS: Normal Saline 1,000 ML 75 ML IV (01:28)
[2018-08-18 06:52] LABS: Abs Immature Grans 0.01 k/cumm (0.0-0.09); Absolute Basophil Count 0.01 k/cumm (0.0-0.2); Absolute Eosinophil Count 0.07 k/cumm (0.0-0.7); Absolute Lymphocyte Count 2.32 k/cumm (1.2-3.4); Absolute Monocyte Count 0.52 k/cumm (0.11-0.7); Absolute Neutrophil Count 2.33 k/cumm (1.2-6.7); Basophils % 0.2; Eosinophils % 1.3; HCT 38.4 % (36.0-46.0); Immature Grans % 0.2; Lymphocytes % 44.1; Mean Corp. HGB Concentration 33.9 g/dL (32.0-36.0); Mean Corpuscular Volume 94.6 fL (80-95); Mean Platelet Volume 9.4 fL (8.0-11.0); Monocytes % 9.9; Neutrophils % 44.3; Platelet Count 261 x1000/uL (130-400); RBC 4.06 m/cumm (4.00-5.20); RBC Distribution Width 13.4 % (11.7-14.6); White Blood Cell Count 5.26 k/cumm (4.4-10.8)
[2018-08-18 07:10] LABS: Anion Gap 10.7 mmol/L (3-11); BUN 35 mg/dL (7-18); CO2 27.3 mmol/L (21.0-32.0); CREATININE 1.46 mg/dL (0.55-1.02); Calcium 9.2 mg/dL (8.5-10.1); Chloride 100 mmol/L (98-107); Estimated GFR 35.96 (mL/min/1.73m2); Glucose 152 mg/dL (70-100); Magnesium 1.8 mg/dL (1.8-2.4); Potassium 3.4 mmol/L (3.5-5.1); Sodium 138 mmol/L (136-145)
[2018-08-18 07:12] LABS: Troponin I < 0.02 ng/mL (0.00-0.06)
[2018-08-18 07:15] VITALS: O2SAT 93
[2018-08-18 07:20] VITALS: BP 136/75; PULSE 88; RESP 18; TEMP 37; O2SAT 97
[2018-08-18 07:25] VITALS: PULSE 85
--- NOTE | 2018-08-18 10:47 | PDOC.CMIN ---
Care Management Initial Assess REASON FOR HOSPITALIZATION:: Chest Pain, Mitral regurgitation PAST MEDICAL HISTORY/PAST SURGICAL HISTORY:: TIA, Osteoarthritis, HO, Hypertension, hyperlipidemia, migraines, tobacco abuse, GERD, Dyslipidemia, DM, benign hypertension, appendectomy, diagnostic laproscopy, hernia repair, shoulder surgery, total hip arthroplasty, unilateral oophorectomy, ligation of fallopian tube, oophrectomy, repair wrist, rotator cuff repair PREVIOUS FUNCTIONAL STATUS/SOCIAL/FAMILY SUPPORTS:: Shelby resides in [place], [place] with her of 27 years, Max. She has one biological child and two step children with her , Max. Her sister, Clarice resides in [place] and is supportive, as well. CURRENT FUNCTIONAL STATUS:: Shelby is lying in bed when meets with her, her , Max at her bedside. Shelby was fully engaged and forthcoming with information. She shared that Max has a new diagnosis of prostate cancer and will begin treatments at [facility] after the first of the year. Shelby is able to identify her emotions and triggers. She is preparing for a ROXANNE and reports this creates some anxiety for her as her father after a ROXANNE with resulting perforation. She is able to discuss her concerns meaningfully and reports she wants to go through with the procedure; she is aided by the process of verbalizing and identifying her trigger. ADVANCE DIRECTIVES:: None on file at [facility]. Has patient been provided with information about the portal?: No Did the patient sign up for the portal?: No CODE STATUS:: Full Code INSURANCE COVERAGE / FINANCIAL ISSUES:: Medicaid CURRENT HOME/COMMUNITY SERVICES/EQUIPMENT:: Shelby reports no equipment at this time, though she shares her and her Max are both on social security income. PRIMARY CARE PHYSICIAN:: Koby Trimble POTENTIAL DISCHARGE NEEDS:: Diabetic education, cardiac consultation, possible ROXANNE. Follow up appointments. PATIENT/FAMILY EDUCATION NEEDS:: Review of discharge instructions, discuss Ask Me Three. ANTICIPATED BARRIERS TO DISCHARGE:: None identified. TRANSPORTATION:: Via private vehicle with her . PLAN:: Shelby will return home when ready per MD. She will have follow up appointments. Undetermined if additional services will be needed; TBD by work-up results. Due to MCR only coverage; if IV ABX required it is likely Shelby will enter [id number] infusion. Shelby has verbalized not wanting to spend the holiday at [facility]. CM will continue to follow.
--- NOTE | 2018-08-18 11:12 | W.PM.DS.N ---
Date of service: 08/18/18 Time of Service: 11:15 DS: Diagnosis Discharge Diagnosis (1) Dyspnea: Status: Acute (2) NANCY (acute kidney injury): Status: Acute (3) Hypertension: Status: Chronic (4) Diabetes mellitus: Status: Chronic (5) GERD (gastroesophageal reflux disease): Status: Chronic (6) Dyslipidemia: Status: Chronic (7) DVT prophylaxis: Status: Acute Discharge Plan Disposition Patient Disposition: HOME Condition: Poor Discharge Details Chief Complaint: Dizzy/Sync Clinical Impression: Chest pain, Mitral regurgitation Reason For Visit: CHEST PAIN, MITRAL REGURGITATION Admit Date/Time: 08/17/18 20:11 Admit Provider: Faraz Hickman Attending Provider: Faraz Hickman Primary Care Provider: Koby Trimble ED Provider: Patrick Wolfe [place] [facility] Course Hospital Course: Pleasant 63-year-old woman with a past medical history significant for diabetes, hypertension, and recent pneumonia presented to [facility] emergency department with complaints of chest pain and dyspnea. Mrs. Hayes is a diabetic woman with a past medical history significant for hypertension dyslipidemia and prior tobacco use. She also has a history of GERD, OA, HO, and obesity. The patient was reportedly in her usual state of health until the evening of July 06 when she recalls having a sudden onset of headache, chills, dizziness, chest pain, and shortness of breath while at home after dinner. She felt sick enough that she had her bring her to the emergency department for further evaluation early the next morning. She also reports having had sick contacts with her grandchild at home approximately 2 weeks prior to this. Further evaluation at [facility] emergency department was essentially negative, the patient was diagnosed with a potential sinusitis, and discharged with a prescription for both doxycycline and Flonase. The patient reports feeling better, and was seen in follow-up at her PCP's office approximately 4 days later, at which time a CT scan was obtained. This imaging showed groundglass opacities in the right upper, middle, and lower lobes concerning for an infectious or inflammatory process. She was informed by her PCPs office that her antibiotic was likely appropriate, and to continue until completion. Unfortunately Mrs. Bianchi recurred and even worsened following the completion of antibiotic course. She was seen by her primary's office again, given a 5-day course of levofloxacin, but as she failed to improve she was sent to the emergency department. While records are unavailable, it was reported that a repeat CT scan showed evidence of both volume and potential unresolved infection, as the patient was prescribed a 10-day course of levofloxacin, low-dose oral furosemide, as well as an inhaler. Based on these results her primary care provider Dr. Koby Trimble also ordered an echocardiogram to be performed for further evaluation of potential heart failure. This test was completed today at [facility]. Mrs. Hayes reported back to [facility] emergency department following her echo as she continued to feel unwell. She reports continued and ongoing dyspnea, chest pain, and cough, along with nausea and vomiting. While she denies fevers she clearly endorses chills now ongoing over the last few weeks. Workup in the emergency department was relevant for an EKG without any significant changes and without any overt signs of ischemia, a negative chest x-ray, and a minimal elevation and proBNP. Her troponin was negative as well. She did have a minimal elevation in white blood count, as well as evidence of acute kidney injury with a creatinine that had doubled from her baseline. Her echo however showed evidence of diastolic dysfunction, severe LVH, and moderate to likely severe mitral regurgitation. While no evidence of vegetation was seen, possibility cannot be excluded based on the imaging by this transthoracic ultrasound. Given the above findings the patient was referred for admission for further evaluation and treatment. Overnight she remained hemodynamically stable, She was afebrile. serial troponins remained negative, white count remains normal. Creatinine improved to 1.4 with gentle IV hydration. She reports her symptoms are improved. She received supplemental potassium for potassium of 3.4. Her case was discussed with cardiology here at [facility]. Recommendations for ROXANNE to rule out endocarditis but unable to obtain today. Case discussed with Cardiology at [facility] who does not recommend emergent ROXANNE, unless patient becomes febrile or blood cultures are positive. Recommend outpatient work up for MR [place]. Recommendations discussed with patient and her primary care provider, Dr Trimble who is in agreement with discharge and orders placed for repeat blood cultures and lab work tomorrow. Patient will monitor her temperatures at home and report fevers immediately. She was advised to return for new or worsening symptoms. Home Meds and New Rx's Prescriptions: Continued multivitamin [Daily Multi-Vitamin] 1 EACH tablet 1 ea PO DAILY RF: 0 omeprazole 10 MG capsule,delayed release(DR/EC) 20 mg PO DAILY RF: 0 simvastatin 20 MG tablet 40 mg PO DAILY RF: 0 metformin 1,000 MG tablet 1,000 mg PO BID RF: 0 vitamin E 400 UNIT capsule 400 unit PO DAILY RF: 0 ciclopirox [Loprox] 45 GM gel 45 gm Topical DAILY RF: 0 Martinic 1 EACH capsule 1 tab PO DAILY RF: 0 Ventolin HFA 90 mcg/actuation Hfa Aerosol Inhaler 2 puff Inhalation .Q4 HOURS PRNRF: 0 magnesium 250 mg Tablet 0.5 tab PO DAILY RF: 0 losartan 100 mg Tablet 100 mg PO DAILY RF: 0 cyanocobalamin (vitamin B-12) [Vitamin B-12] 1,000 mcg Tablet 1 tab PO DAILY RF: 0 acetaminophen [Mapap Extra Strength] 500 MG tablet 1,000 mg PO Q8H PRN PRNQty: 100 RF: 3 latanoprost 0.005 % Drops 1 drp ophthalmic (eye) DAILY RF: 0 glyburide 5 mg Tablet 5 mg PO DAILY RF: 0 ibuprofen 800 mg Tablet 800 mg PO BID PRNRF: 0 indomethacin 50 mg Capsule 50 mg PO DAILY RF: 0 pioglitazone [Actos] 30 mg Tablet 30 mg PO DAILY RF: 0 cholecalciferol (vitamin D3) [Vitamin D3] 1,000 unit Capsule 1,000 unit PO DAILY RF: 0 omega [id number] oil [Fish Oil] 1,000 mg (120 mg-180 mg) Capsule 1,000 mg PO DAILY RF: 0 fluticasone [Flonase Allergy Relief] 50 mcg/actuation spray,suspension 1 spray [place] DAILY Qty: 16 RF: 0 Discontinued levofloxacin 750 mg Tablet 750 mg PO DAILY RF: 0 aspirin 325 MG tablet 325 mg PO DAILY Qty: 30 RF: 1 Discharge Instructions Instructions: Mitral Regurgitation (DC) Additional Instructions: discuss with primary care provider when to resume your aspirin Stop antibiotics (Levaquin) Take your temperature 3-4 times daily and report any fever immediately to your doctor. Return for any new or worsening symptoms. Have your blood drawn tomorrow, they can not draw the blood cultures in the office so you will need to go to the hospital for the blood draw. Stand Alone Forms: Nursing Discharge Form Referrals: Koby Trimble [Primary Care Provider] - 08/24/18 3:00 pm Activity:: Activity as Tolerated Equipment/Supplies:: No Equipment Needed Diet:: Carb Counting Discharge Orders Discharge Orders: Discharge Order (Routine); Ordered 08/18/18 Ordered By: Diane Fong Other Ambulatory Orders: Blood Culture ( Age => 8 Yrs) (Routine) Timeframe: 1 Day Location: Determined by Patient Ordered By: Diane Fong Basic Metabolic Panel (Routine) Timeframe: 1 Day Location: Determined by Patient Ordered By: Diane Fong Complete Blood Count w/Diff (Routine) Timeframe: 1 Day Location: Determined by Patient Ordered By: Diane Fong Magnesium (Routine) Timeframe: 1 Day Location: Determined by Patient Ordered By: Diane Fong DS: Data Vitals/I&O Vitals and I&O: Vital Signs Temperature 37 C 08/18/18 07:20 Temperature Source Tympanic 08/18/18 07:20 Pulse 85 08/18/18 07:25 Pulse Rhythm Regular 08/18/18 10:52 Pulse 93 H 08/17/18 20:47 Respiratory Rate 18 08/18/18 07:20 Respiratory Effort 08/18/18 10:52 Respiratory Depth Normal 08/18/18 10:52 Respiratory Pattern Normal 08/18/18 10:52 Blood Pressure 136/75 08/18/18 07:20 Blood Pressure Mean 46 08/17/18 20:47 Blood Pressure Position Supine 08/17/18 16:21 Pulse Oximetry 97 08/18/18 07:20 Oxygen Delivery Method Room Air 08/18/18 07:20 Oxygen Flow Rate 0 08/18/18 07:20 Pain Level 6 08/18/18 07:20 Intake & Output 08/17/18 08/17/18 08/18/18 11:59 23:59 11:59 Output Total 300 / 300 850 / 850 Balance -300 / -300 -850 / -850 Weight 80.2 kg 82 kg Output: Urine 300 / 300 850 / 850 Other: Urine Color Yellow Pale Yellow Urine Appearance Clear Clear Urine Odor Normal Normal Voiding Methods Toilet Toilet Labs on day of discharge: Labs from last 24 hours 08/18/18 08/18/18 08/17/18 06:30 06:30 19:25 WBC 5.26 D RBC 4.06 Hgb 13.0 Hct 38.4 MCV 94.6 MCH 32.0 MCHC 33.9 RDW 13.4 Plt Count 261 MPV 9.4 Immature Gran % 0.2 Neutrophils % 44.3 Lymphocytes % 44.1 Monocytes % 9.9 Eosinophils % 1.3 Basophils % 0.2 Absolute Neutrophils 2.33 Absolute Lymphocytes 2.32 Absolute Monocytes 0.52 Absolute Eosinophils 0.07 Absolute Basophils 0.01 PT INR APTT Sodium 138 Potassium 3.4 L Chloride 100 Carbon Dioxide 27.3 Anion Gap 10.7 BUN 35 H Creatinine 1.46 H Estimated GFR/1.73 m2 35.96 Glucose 152 H Calcium 9.2 Magnesium 1.8 Total Bilirubin AST ALT Alkaline Phosphatase Troponin I < 0.02 < 0.02 NT-Pro-B Natriuret Pep Total Protein Albumin TSH Urine Color Urine Clarity Urine pH Ur Specific [place] Urine Protein Urine Ketones Urine Blood Urine Nitrite Urine Bilirubin Urine Urobilinogen Ur Leukocyte Esterase Urine RBC Urine WBC Ur Epithelial Cells Urine Crystals Urine Bacteria Urine Casts Urine Mucus Ur Culture Indicated? Urine Glucose 08/17/18 08/17/18 08/17/18 18:35 16:28 16:28 WBC 11.58 H RBC 4.55 Hgb 14.7 Hct 42.3 MCV 93.0 MCH 32.3 MCHC 34.8 RDW 13.4 Plt Count 332 MPV 9.6 Immature Gran % 0.2 Neutrophils % 63.6 Lymphocytes % 23.7 Monocytes % 11.5 Eosinophils % 0.9 Basophils % 0.1 Absolute Neutrophils 7.36 H Absolute Lymphocytes 2.74 Absolute Monocytes 1.33 H Absolute Eosinophils 0.10 Absolute Basophils 0.01 PT INR APTT Sodium 134 L Potassium 3.7 Chloride 94 L Carbon Dioxide 28.2 Anion Gap 11.8 H BUN 39 H Creatinine 2.02 H Estimated GFR/1.73 m2 24.72 Glucose 164 H Calcium 9.8 Magnesium 1.5 L Total Bilirubin 0.5 AST 21 ALT 35 Alkaline Phosphatase 55 Troponin I < 0.02 NT-Pro-B Natriuret Pep Total Protein 7.9 Albumin 4.0 TSH Urine Color Yellow Urine Clarity Clear Urine pH 6.0 Ur Specific [place] 1.015 Urine Protein Trace H Urine Ketones Trace H Urine Blood Negative Urine Nitrite Negative Urine Bilirubin Negative Urine Urobilinogen 0.2 Ur Leukocyte Esterase Negative Urine RBC Negative Urine WBC 3-5 Ur Epithelial Cells Few Urine Crystals Moderate amorphous Urine Bacteria Negative Urine Casts 3-5 fine granular Urine Mucus Negative Ur Culture Indicated? Yes Urine Glucose Negative 08/17/18 08/17/18 16:28 16:28 WBC RBC Hgb Hct MCV MCH MCHC RDW Plt Count MPV Immature Gran % Neutrophils % Lymphocytes % Monocytes % Eosinophils % Basophils % Absolute Neutrophils Absolute Lymphocytes Absolute Monocytes Absolute Eosinophils Absolute Basophils PT 10.6 INR 1.1 APTT 28.8 Sodium Potassium Chloride Carbon Dioxide Anion Gap BUN Creatinine Estimated GFR/1.73 m2 Glucose Calcium Magnesium Total Bilirubin AST ALT Alkaline Phosphatase Troponin I NT-Pro-B Natriuret Pep 379 H Total Protein Albumin TSH 3.41 Urine Color Urine Clarity Urine pH Ur Specific [place] Urine Protein Urine Ketones Urine Blood Urine Nitrite Urine Bilirubin Urine Urobilinogen Ur Leukocyte Esterase Urine RBC Urine WBC Ur Epithelial Cells Urine Crystals Urine Bacteria Urine Casts Urine Mucus Ur Culture Indicated? Urine Glucose 08/18/18 11:11 Blood Blood Culture - Pending 08/18/18 11:11 Blood Blood Culture - Pending 08/17/18 18:25 Blood Blood Culture - Pending 08/17/18 18:25 Blood Blood Culture - Pending 08/17/18 18:10 Blood Blood Culture - Pending Preliminary micro results at discharge 08/18/18 11:11 Blood Culture - Pending Blood 08/18/18 11:11 Blood Culture - Pending Blood 08/17/18 18:35 Urine Culture - Preliminary Urine - Reflex from Ua Gram Positive [place]i 08/17/18 18:25 Blood Culture - Pending Blood 08/17/18 18:25 Blood Culture - Pending Blood 08/17/18 18:10 Blood Culture - Pending Blood [facility] Medical History History of tobacco abuse (Chronic) HO (nonalcoholic steatohepatitis) (Chronic) Hx of migraines (Chronic) Osteoarthritis (Chronic) Dyslipidemia (Chronic) GERD (gastroesophageal reflux disease) (Chronic) Hypertension (Chronic) Diabetes mellitus (Chronic) Benign hypertension Diabetes mellitus Hyperlipidemia Nonalcoholic steatohepatitis (HO) Transient ischemic attack Surgical History H/O hernia repair (Chronic) H/O unilateral oophorectomy (Chronic) H/O shoulder surgery (Chronic) H/O total hip arthroplasty (Chronic) Appendectomy Diagnostic Laproscopy Ligation of fallopian tube Oophrectomy, Right Rotator Cuff Repair repair wrist Family History Mother Diabetes Father Hypertensive disorder, systemic arterial Crohn's disease Stroke Social History Smoking/Tobacco Use Status: Former Tobacco Use additional social history: with 1 daughter. Retired from the [employer]. Former tobacco user. Reports social alcohol use only.
[2018-08-18 12:30] VITALS: BP 130/56; PULSE 87; RESP 16; TEMP 35.8; O2SAT 97
--- NOTE | 2018-08-18 12:30 | MERGE_ITS ---
*[facility]* *[facility]* [address] [place] [address] Date of study: 08/18/2018 Transesophageal Echocardiography 2D, spectral Doppler, and color Doppler *STUDY CONCLUSIONS* Impressions: Moderate MR. No evidence of endocarditis. However, in view of significant calcification of the mitral valve, endocarditis cannot be completely ruled out based on this study. Modified Disla-Criteria still apply. Summary: 1. Left ventricle: The cavity size was normal. Wall thickness was increased in a pattern of severe LVH. Systolic function was hyperdynamic. The estimated ejection fraction was 65-70%. 2. Aortic valve: There was trivial regurgitation. 3. Mitral valve: Moderately calcified annulus. Mildly thickened, moderately calcified leaflets. Mild prolapse, involving the posterior leaflet. There was moderate regurgitation directed eccentrically. 4. Left atrium: The atrium was mildly dilated. No evidence of thrombus in the atrial cavity or appendage. 5. Right ventricle: The cavity size was normal. Wall thickness was normal. Systolic function was normal. 6. Atrial septum: No defect or patent foramen ovale was identified. *PATIENT PRESENTATION* Height: 154.9cm ((61in) ) S/D Pressure: 136 / 77 Weight: 79.8kg ((175.6lb) ) BSA: 1.89m^2 Test start time: 12:45 PM. Test stop time: 01:50 PM. CONSULTING Koby Trimble MD PERFORMING Jose Miguel Love ORDERING Faraz Hickman REFERRING Faraz Hickman PERFORMING [facility] JIGMAN RT Nathaniel (R)(CT), [facility] *PROCEDURE DATA* Procedure information: The patient was identified by two identifiers. Jose Miguel Love MD supervised and was present for the performance of the entire procedure. This study was interpreted by [facility]. Pertinent images and digital data are archived for permanent storage and are available for subsequent review. Study status: Routine. Diagnostic transesophageal echocardiography. 2D, spectral Doppler, and color Doppler. Consent: The risks, benefits, and alternatives to the procedure were explained to the patient and consent was verbally obtained. Barriers to education: No barriers to education identified. Initial setup. The patient was brought to the laboratory in the fasting state. Surface ECG leads, blood pressure measurements, and pulse oximetric signals were monitored. Sedation. General anesthesia was administered by [facility]. A Transesophageal echocardiogram was performed for endocarditis evaluation. Topical anesthesia was obtained using viscous lidocaine. An adult multiplane transesophageal probe was inserted by Jose Miguel Love MDwithout difficulty. Image quality was adequate. The transesophageal probe was removed. Study completion: The patient tolerated the procedure well. There was no blood loss or specimens removed during the procedure. Final verification was completed with patient and staff. There were no complications. History: PMH: Severe MR. potential for endocarditis. *CARDIAC ANATOMY* Left ventricle: The cavity size was normal. Wall thickness was increased in a pattern of severe LVH. Systolic function was hyperdynamic. The estimated ejection fraction was 65-70%. Aortic valve: Trileaflet; mildly thickened leaflets. Cusp separation was normal. No evidence of vegetation. Doppler: There was no stenosis. There was trivial regurgitation. Aorta: There was no evidence for dissection. Aortic root: The aortic root was not dilated. Ascending aorta: The ascending aorta was normal in size. Descending aorta: The descending aorta was normal in size and moderately calcified. Mitral valve: Moderately calcified annulus. Mildly thickened, moderately calcified leaflets. Leaflet separation was normal. Mild prolapse, involving the posterior leaflet. No evidence of vegetation. Doppler: There was no evidence for stenosis. There was moderate regurgitation directed eccentrically. Left atrium: The atrium was mildly dilated. No evidence of thrombus in the atrial cavity or appendage. The appendage was morphologically a left appendage, multilobulated, and of normal size. Emptying velocity was normal. Atrial septum: No defect or patent foramen ovale was identified. Right ventricle: The cavity size was normal. Wall thickness was normal. Systolic function was normal. Pulmonic valve: Not well visualized. No evidence of vegetation. Doppler: There was no evidence for stenosis. There was trivial regurgitation. Tricuspid valve: Structurally normal valve. Leaflet separation was normal. No evidence of vegetation. Doppler: There was no significant regurgitation. Pulmonary artery: Main pulmonary artery: The artery was not well visualized. Right atrium: The atrium was normal in size. No evidence of thrombus. Pericardium: A prominent pericardial fat pad was present. There was no pericardial effusion. I have personally reviewed the images and have reviewed and edited the reported findings. Electronically signed by Jose Miguel Love 08/18/2018 16:12
[2018-08-18 13:32] VITALS: BP 118/50; PULSE 85; RESP 16; TEMP 35.8; O2SAT 97
[2018-08-18] MEDS: Potassium Chloride 20 MEQ TABCR 40 MEQ PO (14:25)
--- NOTE | 2018-08-18 14:56 | CHAPLAIN ---
Shelby was resting in bed when I visited. She would prefer to be home and emphasized that the does not want to go to [facility], unless it is an emergency and she would prefer to continue with outpatients tests if that is safe. She has family members arriving soon for the holidays. Shelby' was recently diagnosed with prostrate cancer and begins radiation treatments on Aug.30. She herself has had some health issues with no definitive diagnosis or treatment plan which has been frustrating for her. Shelby identified her four sisters as supports for her. Three live in [place] and a fourth in [place]. One has had tumors removed from her brain and is doing well, but this has been a stressor for Shelby as well. She said she enjoys being home, and that is where she finds comfort and can most relaxed.
[2018-08-18 15:00] VITALS: PULSE 94
--- NOTE | 2018-08-18 15:51 | INITIAL_ITS ---
Care Management Initial Assess REASON FOR HOSPITALIZATION:: Chest Pain, Mitral regurgitation PAST MEDICAL HISTORY/PAST SURGICAL HISTORY:: TIA, Osteoarthritis, HO, Hypertension, hyperlipidemia, migraines, tobacco abuse, GERD, Dyslipidemia, DM, benign hypertension, appendectomy, diagnostic laproscopy, hernia repair, shou lder surgery, total hip arthroplasty, unilateral oophorectomy, ligation of fallopian tube, oophrectomy, repair wrist, rotator cuff repair PREVIOUS FUNCTIONAL STATUS/SOCIAL/FAMILY SUPPORTS:: Shelby resides in [place], [place] with her of 27 years, Max. She has one biological child and two step children with her , Max. Her sister, Clarice resides in [place] and is supportive, as well. CURRENT FUNCTIONAL STATUS:: Shelby is lying in bed when meets with her, her , Max at her bedside. Shelby was fully engaged and forthcoming with information. She shared that Max has a new diagnosis of prostate cancer and will begin treatments at [facility] after the first of the year. Shelby is able to identify her emotions and triggers. She is preparing for a ROXANNE and reports this creates some anxiety for her as her father after a ROXANNE with resulting perforation. She is able to discuss her concerns meaningfully and reports she wants to go through with the procedure; she is aided by the process of verbalizing and identifying her trigger. ADVANCE DIRECTIVES:: None on file at [facility]. Has patient been provided with information about the portal?: No Did the patient sign up for the portal?: No CODE STATUS:: Full Code INSURANCE COVERAGE / FINANCIAL ISSUES:: Medicaid CURRENT HOME/COMMUNITY SERVICES/EQUIPMENT:: Shelby reports no equipment at this time, though she shares her and her Max are both on social security income. PRIMARY CARE PHYSICIAN:: Koby Trimble POTENTIAL DISCHARGE NEEDS:: Diabetic education, cardiac consultation, possible ROXANNE. Follow up appointments. PATIENT/FAMILY EDUCATION NEEDS:: Review of discharge instructions, discuss Ask Me Three. ANTICIPATED BARRIERS TO DISCHARGE:: None identified. TRANSPORTATION:: Via private vehicle with her . PLAN:: Shelby will return home when ready per MD. She will have follow up appointments. Undetermined if additional services will be needed; TBD by work-up results. Due to MCR only coverage; if IV ABX required it is likely Shelby will enter [id number] infusion. Shelby has verbalized not wanting to spend the [place] [facility]. CM will continue to follow.
--- NOTE | 2018-08-18 18:37 | W.HOLTRPT ---
Holter Monitor Report Holter Monitor Note: Holter Report Referring provider: Brenda Gloria Indication: palpitations Day of analysis 08/18/2018. Analyzed length: 1 day, 22 hours, 40 minutes, 25 seconds, 0.1% artifact. Findings: 1. Baseline sinus rhythm, 68-118/min, average 82/min 2. Rare PAC, less than 1%, 2 SVT runs, maximally 8 beats, maximally 154/min, no AF. 3. Rare PVC, less than 1%, no VT. 4. No pauses. 5. No symptoms recorded.
== END 2018-08-18 16:31 | disposition home or self-care (01) | DRG 204 ==
LOC: ER 20:33 → MS 21:02
PROVIDERS: Internal Medicine Cardiovascular Disease; Admitting Provider Internal Medicine; Emergency Provider Nurse Practitioner Family; PCP Internal Medicine; Visit Provider Internal Medicine
PROC: B24BZZ4 Ultrasonography of Heart with Aorta, Transesophageal (ICD-10-PCS; CPT 93312; principal; 2018-08-18 12:45)
DX: R06.00 Dyspnea, unspecified (principal); N17.9 Acute kidney failure, unspecified; R11.2 Nausea with vomiting, unspecified; R05 Cough; E86.0 Dehydration; E87.6 Hypokalemia; I10 Essential (primary) hypertension; E11.9 Type 2 diabetes mellitus without complications; K21.9 Gastro-esophageal reflux disease without esophagitis; E78.5 Hyperlipidemia, unspecified; I34.0 Nonrheumatic mitral (valve) insufficiency; I51.7 Cardiomegaly
CPT/HCPCS: 93312; 36410; 36415; 80048; 80053; 87040; 87449; 93005; 93306; 96374; 99223; 99239; 99285; 71046; 81003; 81015; 83735; 83880; 84443; 84484; 85025; 85610; 85730; 87086; 93010; 93320; 93325; J2060; J3475

== ENCOUNTER → 2018-08-18 14:14 | Outpatient (BNVA) | payer MEDICARE, SELFPAY | PROVIDERS: PCP Internal Medicine; Visit Provider Internal Medicine Cardiovascular Disease | DX: R69 Illness, unspecified (principal) ==

== ENCOUNTER 2018-08-21 05:44 | Observation (INO) | payer MEDICARE, SELFPAY ==
[2018-08-21] VITALS (34 sets, daily range): BP systolic 103–152; BP diastolic 51–102; PULSE 74–97; RESP 12–27; TEMP 35.9–37.1; O2SAT 93–99
[2018-08-21 06:27] LABS: Abs Immature Grans 0.01 k/cumm (0.0-0.09); Absolute Basophil Count 0.02 k/cumm (0.0-0.2); Absolute Eosinophil Count 0.12 k/cumm (0.0-0.7); Absolute Lymphocyte Count 2.43 k/cumm (1.2-3.4); Absolute Monocyte Count 0.45 k/cumm (0.11-0.7); Absolute Neutrophil Count 2.51 k/cumm (1.2-6.7); Basophils % 0.4; Eosinophils % 2.2; HGB 13.2 g/dL (12.0-15.5); Immature Grans % 0.2; Lymphocytes % 43.9; Mean Corp. HGB Concentration 34.7 g/dL (32.0-36.0); Mean Corpuscular Hemoglobin 32.5 pg (27.0-33.0); Mean Corpuscular Volume 93.6 fL (80-95); Mean Platelet Volume 9.3 fL (8.0-11.0); Monocytes % 8.1; Neutrophils % 45.2; Platelet Count 260 x1000/uL (130-400); RBC 4.06 m/cumm (4.00-5.20); White Blood Cell Count 5.54 k/cumm (4.4-10.8)
--- NOTE | 2018-08-21 06:39 | W.ED.GENAD ---
Discharge Plan Disposition Patient Disposition: STILL A PATIENT Condition: Stable Discharge Details Chief Complaint: Chest Pain Primary Care Provider: Koby Trimble ED Provider: Urbano Kenyon Home Meds and New Rx's Prescriptions: New magnesium 250 mg tablet 250 mg PO DAILY Qty: 30 RF: 0 furosemide [Lasix] 20 mg tablet 20 mg PO DAILY PRN (Reason: shortness of breath) Qty: 30 RF: 0 Continued multivitamin [Daily Multi-Vitamin] 1 EACH tablet 1 ea PO DAILY RF: 0 omeprazole 10 MG capsule,delayed release(DR/EC) 20 mg PO DAILY RF: 0 simvastatin 20 MG tablet 40 mg PO DAILY RF: 0 metformin 1,000 MG tablet 1,000 mg PO BID RF: 0 vitamin E 400 UNIT capsule 400 unit PO DAILY RF: 0 ciclopirox [Loprox] 45 GM gel 45 gm Topical DAILY RF: 0 Martinic 1 EACH capsule 1 tab PO DAILY RF: 0 Ventolin HFA 90 mcg/actuation Hfa Aerosol Inhaler 2 puff Inhalation .Q4 HOURS PRNRF: 0 magnesium 250 mg Tablet 0.5 tab PO DAILY RF: 0 losartan 100 mg Tablet 100 mg PO DAILY RF: 0 cyanocobalamin (vitamin B-12) [Vitamin B-12] 1,000 mcg Tablet 1 tab PO DAILY RF: 0 acetaminophen [Mapap Extra Strength] 500 MG tablet 1,000 mg PO Q8H PRN PRNQty: 100 RF: 3 latanoprost 0.005 % Drops 1 drp ophthalmic (eye) DAILY RF: 0 glyburide 5 mg Tablet 5 mg PO DAILY RF: 0 ibuprofen 800 mg Tablet 800 mg PO BID PRNRF: 0 indomethacin 50 mg Capsule 50 mg PO DAILY RF: 0 pioglitazone [Actos] 30 mg Tablet 30 mg PO DAILY RF: 0 cholecalciferol (vitamin D3) [Vitamin D3] 1,000 unit Capsule 1,000 unit PO DAILY RF: 0 omega 1-beh-jeo-fish oil [Fish Oil] 1,000 mg (120 mg-180 mg) Capsule 1,000 mg PO DAILY RF: 0 fluticasone [Flonase Allergy Relief] 50 mcg/actuation spray,suspension 1 spray CATALINA DAILY Qty: 16 RF: 0 Discharge Instructions Instructions: Chest Pain (ED), Weakness (ED), Hypomagnesemia (ED) Additional Instructions: Rest over the next 1 week. No exertion. You should have a stress test as soon as possible. Please contact your primary care physician to arrange follow-up. Return to the ER for any worsening or new concerning symptoms. Medical Decision Making <Stephenie Almendarez DO - Last Filed: 08/21/18 08:35> 63yo F w/ a h/o DM, HTN, HLD, HO, GERD who has had several weeks of chest pain, cough, chest congestion, sob, dizziness, nausea, vomiting, fatigue and weakness who presents for vomiting, chills, chest pain, and back pain since 4am this morning. She denies fever. Pt was seen in the ED on 07/06 and was treated with doxycycline for a sinus infection and followed up with her pcp and had a CT chest on 07/11/18 which noted possible atypical pneumonia and was instructed to continue the doxycycline. Her symptoms worsened and she had repeat CT chest at [facility] on 08/10/18 which noted small b/l pleural effusions nd she was given levaquin, lasix and an inhaler by her pcp and referred for echo for possible heart failure. Her TTE on 08/17/18 noted moderate to severe mitral regurgitation with a moderately calcified annulus but no obvious flail leaflet, ruptured cord or vegetation. She came back to the ED on 08/17/18 for persistent similar symptoms and was admitted and had unremarkable EKG, chest x-ray and negative troponins. Patient had been referred for ROXANNE but per discharge summary, this had not be done prior to discharge as she wanted to go home for holidays and was cleared for discharge due to lack of fevers, serial negative troponins, normal wbc. She was also noted to have NANCY which improved with fluids. Records in the computer note that she did in fact have a ROXANNE on 08/18 which noted moderate mitral regurgitation with a moderately calcified annulus and mild thickened moderately calcified leaflets but no evidence of endocarditis however given the significant calcification endocarditis cannot be completely ruled out. Patient states she was advised to return to the hospital today for repeat lab work including blood cultures and decided to come to the ED due to her return of persistent symptoms this morning. Upon my evaluation, vitals within normal limits. She is afebrile. She appears nontoxic and in no acute distress. Cardiac workup ordered including blood cultures, lactate, bnp, cxr, ua and bolus ivf and zofran ordered. EKG notes a rate of 89 and sinus. There is questionable less than [address] elevation vs GA depression noted in lead II. Nurse had stated the EKG was done with the limb leads near the pelvis. A second EKG was repeated with leg limb leads placed distally and there appears to be improvement in this minimal/questionable ST elevation but still noted questionable GA depression lead II and V6. When compared to old EKG in June 2018 and Jul 2017 there is not an acute significant change and this GA depression was noted in lead II. Labs reviewed and note a normal white blood cell count. Troponin negative. BNP 314, had been 379 last week. Lactate 1.7. Magnesium 1.3, will replete. Urinalysis negative. Chest x-ray appears negative. 0755 -- D/w Dr. Mckeon -- as pt has had extensive cardiac workup with negative troponins and EKGs, a stress test may be beneficial at this time as chest pain has been ongoing for several weeks, and with serial negative troponins over successive visits, an outpatient stress test should be sufficient. Recommends a treadmill MPI. It was also discussed the possibility of a viral process. It is possible that pt may have a pericarditis vs stable vs unstable angina vs another viral process. Will give a dose of motrin. 0800 -- case endorsed to Dr. Kenyon to f/u on repeat troponin and ekg and likely plan for discharge home. Pt is agreeable with paln. Medical Records Medical records reviewed: Yes I reviewed the patient's medical records. Lab Data Lab results reviewed: Yes I reviewed the patient's lab results. 08/21/18 07:00 Blood Blood Culture - Pending 08/21/18 06:50 Blood Blood Culture - Pending Laboratory Tests Range/Units 08/21/18 08/21/18 08/21/18 06:02 06:02 06:02 WBC (4.4-10.8) k/cumm 5.54 RBC (4.00-5.20) m/cumm 4.06 Hgb (12.0-15.5) g/dL 13.2 Hct (36.0-46.0) % 38.0 MCV (80-95) fL 93.6 MCH (27.0-33.0) pg 32.5 MCHC (32.0-36.0) g/dL 34.7 RDW (11.7-14.6) % 13.0 Plt Count (130-400) x1000/uL 260 MPV (8.0-11.0) fL 9.3 Immature Gran % 0.2 Neutrophils % 45.2 Lymphocytes % 43.9 Monocytes % 8.1 Eosinophils % 2.2 Basophils % 0.4 Absolute Neutrophils (1.2-6.7) k/cumm 2.51 Absolute Lymphocytes (1.2-3.4) k/cumm 2.43 Absolute Monocytes (0.11-0.7) k/cumm 0.45 Absolute Eosinophils (0.0-0.7) k/cumm 0.12 Absolute Basophils (0.0-0.2) k/cumm 0.02 Sodium (136-145) mmol/L 138 Potassium (3.5-5.1) mmol/L 3.9 Chloride (98-107) mmol/L 103 Carbon Dioxide (21.0-32.0) mmol/L 24.9 Anion Gap (3-11) mmol/L 10.1 BUN (7-18) mg/dL 13 D Creatinine (0.55-1.02) mg/dL 0.77 D Estimated GFR/1.73 m2 (mL/min/1.73m2) >= 60.00 Glucose (70-100) mg/dL 144 H Lactate (0.6-1.4) mmol/L Calcium (8.5-10.1) mg/dL 9.1 Magnesium (1.8-2.4) mg/dL 1.3 L Total Bilirubin (0.2-1.0) mg/dL 0.6 AST (15-37) U/L 22 ALT (12-78) U/L 29 Alkaline Phosphatase (46-116) U/L 46 Troponin I (0.00-0.06) ng/mL < 0.02 NT-Pro-B Natriuret Pep ( - 299) pg/mL Total Protein (6.4-8.2) g/dL 7.1 Albumin (3.4-5.0) g/dL 3.6 Lipase (73-393) U/L 124 Urine Color (Yellow) Urine Clarity Urine pH (5-8) Ur Specific [place] (1.005-1.025) Urine Protein (Negative) mg/dL Urine Ketones (Negative) mg/dL Urine Blood (Negative) Urine Nitrite (Negative) Urine Bilirubin (Negative) Urine Urobilinogen (Up TO 0.2) EU/dL Ur Leukocyte Esterase (Negative) Urine Glucose (Negative) mg/dL Range/Units 08/21/18 08/21/18 08/21/18 06:25 06:50 07:10 WBC (4.4-10.8) k/cumm RBC (4.00-5.20) m/cumm Hgb (12.0-15.5) g/dL Hct (36.0-46.0) % MCV (80-95) fL MCH (27.0-33.0) pg MCHC (32.0-36.0) g/dL RDW (11.7-14.6) % Plt Count (130-400) x1000/uL MPV (8.0-11.0) fL Immature Gran % Neutrophils % Lymphocytes % Monocytes % Eosinophils % Basophils % Absolute Neutrophils (1.2-6.7) k/cumm Absolute Lymphocytes (1.2-3.4) k/cumm Absolute Monocytes (0.11-0.7) k/cumm Absolute Eosinophils (0.0-0.7) k/cumm Absolute Basophils (0.0-0.2) k/cumm Sodium (136-145) mmol/L Potassium (3.5-5.1) mmol/L Chloride (98-107) mmol/L Carbon Dioxide (21.0-32.0) mmol/L Anion Gap (3-11) mmol/L BUN (7-18) mg/dL Creatinine (0.55-1.02) mg/dL Estimated GFR/1.73 m2 (mL/min/1.73m2) Glucose (70-100) mg/dL Lactate (0.6-1.4) mmol/L 1.7 H Calcium (8.5-10.1) mg/dL Magnesium (1.8-2.4) mg/dL Total Bilirubin (0.2-1.0) mg/dL AST (15-37) U/L ALT (12-78) U/L Alkaline Phosphatase (46-116) U/L Troponin I (0.00-0.06) ng/mL NT-Pro-B Natriuret Pep ( - 299) pg/mL 314 H Total Protein (6.4-8.2) g/dL Albumin (3.4-5.0) g/dL Lipase (73-393) U/L Urine Color (Yellow) Yellow Urine Clarity Clear Urine pH (5-8) 6.0 Ur Specific [place] (1.005-1.025) <= 1.005 Urine Protein (Negative) mg/dL Negative Urine Ketones (Negative) mg/dL Negative Urine Blood (Negative) Negative Urine Nitrite (Negative) Negative Urine Bilirubin (Negative) Negative Urine Urobilinogen (Up TO 0.2) EU/dL 0.2 Ur Leukocyte Esterase (Negative) Negative Urine Glucose (Negative) mg/dL Negative ECG Data Attestation: I personally reviewed and interpreted this ECG (s) as follows: Interpretation: 0551 --rate of 89, sinus, less than [address] elevation in lead II versus GA depression in lead II. Questionable GA depression noted in V6. QTc 467. QRS 98. 0703 --rate of 80, sinus, GA depression noted in lead II and V6. No acute ST elevation. QTc 468. QRS 100 HPI <Stephenie Almendarez DO - Last Filed: 08/21/18 08:35> General Mode of arrival: ambulatory. Date/Time Provider Initiated Documentation: 08/21/18 05:51. Limitations to Documentation: no limitations. Information obtained by: patient. HPI Narrative: Patient is a 63-year-old female with a history of diabetes, hypertension, hyperlipidemia, HO who has had intermittent chest pain, headache, dizziness, chills, shortness of breath and nausea and vomiting for the past several weeks who presents with return of symptoms at 4 AM this morning. Patient states she has vomited multiple times since then. Patient describes the chest pain as intermittent and pressure like in the center of her chest. She also admits to midline aching back pain. Patient has been treated in the last 6 weeks with doxycycline for a sinus infection and subsequently her symptoms did not improve and she had a CT chest was noted pneumonia for which she was treated with levaquin. Records note that there was another CT chest of which I could not find which noted unresolved infection and possible volume overload and she was prescribed levaquin, lasix and an inhaler she was referred for an echo for evaluation of heart failure. Pt had a TTE on 08/17 which noted a moderately calcified annulus as well as moderate to severe mitral regurgitation but could not identify flail leaflet, ruptured chord or vegetation on the study. She had an EF of 65-70%. Patient then had a ROXANNE on on 08/18 which noted moderate mitral regurgitation but no evidence of endocarditis, however with significant calcification of the mitral valve endocarditis could not be completely ruled out. Patient was subsequently discharged home and advised to return if she developed fevers or new or worsening symptoms. She was instructed to return today for replete blood cultures and lab work. Related Data Home Medications Medication Instructions Recorded Confirmed ciclopirox [Loprox] 45 gm TOPICAL DAILY NS 11/27/12 08/21/18 metformin 1,000 mg PO BID NS 11/27/12 08/21/18 multivitamin [Daily Multi-Vitamin] 1 ea PO DAILY NS 11/27/12 08/21/18 omeprazole 20 mg PO DAILY tab-cap NS 11/27/12 08/21/18 simvastatin 40 mg PO DAILY tab-cap NS 11/27/12 08/21/18 vitamin E 400 unit PO DAILY NS 11/27/12 08/21/18 Martinic 1 tab PO DAILY 12/08/12 08/21/18 acetaminophen [Mapap Extra 1,000 mg PO Q8H PRN PRN #100 tab 08/31/17 08/21/18 Strength] cholecalciferol (vitamin D3) 1,000 unit PO DAILY 07/07/18 08/21/18 [Vitamin D3] fluticasone [Flonase Allergy 1 spray CATALINA DAILY #16 gm 07/07/18 08/21/18 Relief] glyburide 5 mg PO DAILY 07/07/18 08/21/18 ibuprofen 800 mg PO BID PRN 07/07/18 08/21/18 indomethacin 50 mg PO DAILY 07/07/18 08/21/18 latanoprost 1 drp OPHTHALMIC (EYE) DAILY 07/07/18 08/21/18 omega 6-wwg-wvg-fish oil [Fish Oil] 1,000 mg PO DAILY 07/07/18 08/21/18 pioglitazone [Actos] 30 mg PO DAILY 07/07/18 08/21/18 Ventolin HFA 2 puff INHALATION .Q4 HOURS PRN 08/17/18 08/21/18 cyanocobalamin (vitamin B-12) 1 tab PO DAILY 08/17/18 08/21/18 [Vitamin B-12] losartan 100 mg PO DAILY 08/17/18 08/21/18 magnesium 0.5 tab PO DAILY 08/17/18 08/21/18 furosemide [Lasix] 20 mg PO DAILY PRN #30 tab 08/21/18 magnesium 250 mg PO DAILY #30 tab 08/21/18 Previous Rx's Medication Instructions Recorded acetaminophen [Mapap Extra 1,000 mg PO Q8H PRN PRN #100 tab 08/31/17 Strength] fluticasone [Flonase Allergy 1 spray CATALINA DAILY #16 gm 07/07/18 Relief] furosemide [Lasix] 20 mg PO DAILY PRN #30 tab 08/21/18 magnesium 250 mg PO DAILY #30 tab 08/21/18 Allergies Allergy/AdvReac Type Severity Reaction Status Date / Time tetanus toxoid, adsorbed Allergy Severe Anaphylaxsi Unverified 08/21/18 06:13 s Latex, Natural Rubber Allergy Intermediate Hives, Unverified 08/21/18 06:13 bandaids General Stated Complaint: Chest Pain LINUS: 2 Review of Systems <Stephenie Almendarez DO - Last Filed: 08/21/18 08:35> Review of Systems All systems reviewed & are unremarkable except as noted in HPI and below Constitutional Reports as per HPI, Denies chills, Denies fever(s) and Reports headache(s) Eyes Denies blurry vision ENT Denies dizziness, Reports headache(s), Denies sore throat and Denies throat swelling Cardiovascular Reports chest pain and Reports dyspnea Respiratory Reports dyspnea Gastrointestinal Denies abdominal pain, Denies diarrhea, Reports nausea and Reports vomiting Genitourinary Denies hematuria and Denies dysuria Musculoskeletal Denies back pain and Denies numbness Integumentary/Breasts Denies lesions and Denies rash Neurologic Denies dizziness, Reports headache(s) and Denies numbness Allergic/Immunologic Denies throat swelling PFSH <Stephenie Almendarez DO - Last Filed: 08/21/18 08:35> Medical History History of tobacco abuse (Chronic) HO (nonalcoholic steatohepatitis) (Chronic) Hx of migraines (Chronic) Osteoarthritis (Chronic) Dyslipidemia (Chronic) GERD (gastroesophageal reflux disease) (Chronic) Hypertension (Chronic) Diabetes mellitus (Chronic) Benign hypertension Diabetes mellitus Hyperlipidemia Nonalcoholic steatohepatitis (HO) Transient ischemic attack Surgical History H/O hernia repair (Chronic) H/O unilateral oophorectomy (Chronic) H/O shoulder surgery (Chronic) H/O total hip arthroplasty (Chronic) Appendectomy Diagnostic Laproscopy Ligation of fallopian tube Oophrectomy, Right Rotator Cuff Repair repair wrist Family History Mother Diabetes Father Hypertensive disorder, systemic arterial Crohn's disease Stroke Social History Smoking/Tobacco Use Status: Former Tobacco Use substance use type: does not use additional social history: with 1 daughter. Retired from the [employer]. Former tobacco user. Reports social alcohol use only. Exam <Stephenie Almendarez DO - Last Filed: 08/21/18 08:35> Const General: cooperative and healthy appearing Orientation: alert and awake HENMT Head: normal to inspection Ears: hearing grossly normal bilaterally and external ears normal General nose exam: external nose normal Face and sinus: normal facial exam Mouth: oral mucosae normal Eyes General: appearance normal, both eyes and all related structures Eyelids: eyelids normal EOM: EOM intact bilaterally Neck Neck: normal visual inspection Lymphatic: no lymphadenopathy noted Chest Chest: normal inspection of the chest and tenderness (anterior chest) Resp Effort & Inspection: normal respiratory effort and able to speak in complete sentences Auscultation: clear to auscultation bilaterally Cardio Rate: regular rate Rhythm: regular rhythm GI Inspection: normal to inspection Palpation: soft, not firm, no guarding, no hepatosplenomegaly, no masses and tender in the epigastrum Auscultation: normal bowel sounds Back/Spine/Pelvis Back: CVA tenderness (bilateral) Skin General skin exam: no rashes or lesions noted Neuro General: alert and awake Cognition: normal cognition Speech: speech normal Motor: muscle tone normal throughout Sensory Exam: no sensory deficits noted Extrem General: normal to inspection, full ROM, normal capillary refill and no edema Psych Appearance: grossly normal Mental Status: mental status grossly normal Speech and Movement: speech and movement normal Affect: normal affect Thought Process: normal Course <Stephenie Almendarez DO - Last Filed: 08/21/18 08:35> Vital Signs Temperature 98.8 F 08/21/18 05:50 Pulse 91 H 08/21/18 05:50 Respiratory Rate 17 08/21/18 05:50 Blood Pressure 152/58 H 08/21/18 05:50 Pulse Oximetry 95 08/21/18 05:50 Temperature 98.8 F 08/21/18 05:50 Temperature Source Temporal Artery Scan 08/21/18 05:50 Pulse 84 08/21/18 06:31 Pulse 88 08/21/18 06:31 Respiratory Rate 15 08/21/18 06:31 Respiratory Effort Non-Labored 08/21/18 06:09 Respiratory Depth Normal 08/21/18 06:09 Respiratory Pattern Normal 08/21/18 06:09 Blood Pressure 128/68 08/21/18 06:31 Blood Pressure Mean 81 08/21/18 06:31 Blood Pressure Position Sitting 08/21/18 05:50 Pulse Oximetry 95 08/21/18 06:31 Oxygen Delivery Method Room Air 08/21/18 05:50 Oxygen Flow Rate 0 08/21/18 05:50 Pain Level 0 08/21/18 06:09 Comment 08/21/18 05:50 Lab/Test Results Lab/Test Results: 08/21/18 06:28 Blood Blood Culture - Pending 08/21/18 06:28 Blood Blood Culture - Pending Laboratory Tests Range/Units 08/21/18 06:02 WBC (4.4-10.8) k/cumm 5.54 RBC (4.00-5.20) m/cumm 4.06 Hgb (12.0-15.5) g/dL 13.2 Hct (36.0-46.0) % 38.0 MCV (80-95) fL 93.6 MCH (27.0-33.0) pg 32.5 MCHC (32.0-36.0) g/dL 34.7 RDW (11.7-14.6) % 13.0 Plt Count (130-400) x1000/uL 260 MPV (8.0-11.0) fL 9.3 Immature Gran % 0.2 Neutrophils % 45.2 Lymphocytes % 43.9 Monocytes % 8.1 Eosinophils % 2.2 Basophils % 0.4 Absolute Neutrophils (1.2-6.7) k/cumm 2.51 Absolute Lymphocytes (1.2-3.4) k/cumm 2.43 Absolute Monocytes (0.11-0.7) k/cumm 0.45 Absolute Eosinophils (0.0-0.7) k/cumm 0.12 Absolute Basophils (0.0-0.2) k/cumm 0.02 Sign Out <Stephenie Almendarez DO - Last Filed: 08/21/18 08:35> Sign Out Data: Sign Out Comment: Case endorsed to f/u on second troponin and repeat EKG and likely discharge home if negative for outpatient stress test Last updated by Stephenie Almendarez DO at 08/21/18 08:36 Post-Handoff Eval: Trop x2 neg. BNP mild elevation. Repeat ecg unchanged - still with GA depression that appears chronic. Patient hemodynamically stable. Saturating well and no resp distress. Outpatient stress test ordered as requested by cardiology. Patient has recieved magnesium 1g IV so far. Patient ambulated to bathroom but still complaining of general weakness. No CP. Spoke with Dr. Maxwell who will admit for continued magnesium replacement. Patient agreeable with plan.
[2018-08-21 06:42] LABS: ALT 29 U/L (12-78); AST 22 U/L (15-37); Albumin 3.6 g/dL (3.4-5.0); Alkaline Phosphatase 46 U/L (46-116); Anion Gap 10.1 mmol/L (3-11); BUN 13 mg/dL (7-18); Bilirubin, Total 0.6 mg/dL (0.2-1.0); CO2 24.9 mmol/L (21.0-32.0); CREATININE 0.77 mg/dL (0.55-1.02); Calcium 9.1 mg/dL (8.5-10.1); Chloride 103 mmol/L (98-107); Glucose 144 mg/dL (70-100); Magnesium 1.3 mg/dL (1.8-2.4); Potassium 3.9 mmol/L (3.5-5.1); Sodium 138 mmol/L (136-145); Total Protein 7.1 g/dL (6.4-8.2)
[2018-08-21 06:44] LABS: Lipase 124 U/L (73-393); Troponin I < 0.02 ng/mL (0.00-0.06)
[2018-08-21] MEDS: Ondansetron 4 MG/2 ML VIAL IVP (06:53)
[2018-08-21 06:56] LABS: Lactate-non-spesis 1.7 mmol/L (0.6-1.4)
[2018-08-21 07:00] LABS: NT-proBNP 314 pg/mL
[2018-08-21 07:16] LABS: Bilirubin Negative (Negative); Blood Negative (Negative); Clarity Clear; Glucose Negative (Negative); Ketones Negative (Negative); Leukocyte Esterase Negative (Negative); Nitrite Negative (Negative); Specific Gravity <= 1.005 (1.005-1.025); Urobilinogen 0.2 EU/dL (Up TO 0.2)
--- NOTE | 2018-08-21 07:25 | DI.RAD_ITS ---
SYMPTOM/DIAGNOSIS: CHEST PAIN, SOB, R/P ACUTE DISEASE PA AND LATERAL CHEST: 08/21 The heart is not enlarged. Note is made of mitral annulus calcification. The lungs are clear. No pleural effusion seen. CONCLUSION: No evidence of acute disease.
[2018-08-21] MEDS: Normal Saline 250 ML 500 ML IV (07:26)
[2018-08-21] MEDS: MAGNESIUM SULFATE 1 GM/100 ML BAG IVPB (07:44)
[2018-08-21] MEDS: Ibuprofen 600 MG TAB PO (09:01)
--- NOTE | 2018-08-21 09:12 | NUR.NOTE ---
assumed care of patient, patient ambulated to rest room and back to room, denies chest pain Nursing Note:
[2018-08-21 09:44] LABS: Troponin I < 0.02 ng/mL (0.00-0.06)
--- NOTE | 2018-08-21 10:25 | NUR.NOTE ---
pastient resting comfrotably will continue to monitor Nursing Note:
--- NOTE | 2018-08-21 12:02 | NUR.NOTE ---
patient to be admitted for low mag and fatigue. Nursing Note:
--- NOTE | 2018-08-21 12:39 | NUR.NOTE ---
patient awaiting bed assigmnent, will continue to monitor Nursing Note:
--- NOTE | 2018-08-21 13:00 | NUR.NOTE ---
patient transfered to med/surge via monitor. Nursing Note:
[2018-08-21] MEDS: MAGNESIUM SULFATE 4 GM/100 ML BAG IVPB (14:12)
[2018-08-21] MEDS: Enoxaparin 40 MG/0.4 ML SYR SC (14:54)
[2018-08-21] MEDS: Normal Saline 1,000 ML 125 ML IV (15:37)
--- NOTE | 2018-08-21 17:29 | HPE_ITS ---
Date of service: 08/21/18 Time of Service: 17:16 Assessment and Plan (1) Atypical chest pain: Current visit: Yes Status: Acute My suspicion, based on the positional description of patient's symptoms, is that this is due to esophagitis, likely due to GERD. Another diagnosis to consider would be pericarditis, but the patient's presentation with bad taste in her mouth as well as serial episodes of vomiting are more consistent with esophagitis. Finally, the patient could have gastroparesis. I have placed her on IV protonix with prn IV reglan. She would benefit from a gastric emptying study. I made her NPO after midnight. (2) GERD (gastroesophageal reflux disease): Current visit: No Status: Chronic As above - likely contributing to patient's symptoms. (3) Hypomagnesemia: Current visit: Yes Status: Acute This is severe. The patient's generalized weakness may have to do with this. She is being repleted intravenously, her level will be rechecked tomorrow. She is being started on a long-acting formulation of magnesium as she seems to have a hard time tolerating short acting formulas and has not been compliant with it. (4) Hematemesis with nausea: Current visit: Yes Status: Acute This is likely from a Naina-Porras tear. There is no active bleeding. Checking hemoccult. No chemical DVT ppx until results of this are known. (5) Gastroparesis: Current visit: Yes Status: Acute As above - gastric emptying study ordered. (6) Diabetes mellitus: Current visit: No Status: Chronic Hold oral medications. Will cover with SSI while here. (7) Hypertension: Current visit: No Status: Chronic Continue home meds (8) Obesity (BMI 30.0-34.9): Current visit: Yes Status: Acute Encourage life-style changes (9) Discharge planning issues: Current visit: Yes Status: Acute Possible discharge home tomorow if pain is controlled (10) DVT prophylaxis: Current visit: No Status: Acute SCD's alone until results of hemoccult are known History of Present Illness Chief Complaint: Nausea, vomiting, shortness of breath Narrative: Ms Hayes is a 63 year old female with PMHx of recently treated pneumonia, mitral regurgitation, non-insulin dependent diabetes mellitus, hypertension, hyperlipidemia, discharged from our service on 08/18/18 after a brief observation for chest pain and found to have mitral regurgitation, who re- presented back to [facility] ED on 08/21/18 complaining of symptoms that start when she lays down - chest pain, awful taste in her mouth, nausea accompanied by sensation of chills/feeling cold, shortness of breath/cough which start when she lays flat and feels nauseated. She feels that her food sometimes just sits in her stomach. She had not had any abdominal pain, diarrhea, or constipation. She has been vomiting pink contents. She states she had an endoscopy 2 years ago which showed that she had GERD, and that's when she was initiated on omeprazole, which she still takes. I reviewed her medication list with her - she no longer takes ibuprofen or indomethacin, and she is no longer on glyburide. Of note, the patient does not check her blood sugars at home when she is nauseated. In the ER, her workup was significant only for hypomagnesemia with magnesium of 1.3 and very borderline elevated BNP without clinical evidence of CHF. We were asked to take over care for continued repletion of electrolytes as well as further workup of patient's symptoms. Review of Systems Review of Systems 12 systems reviewed. Pertinent positives and negatives as per HPI. Additionally, the patient describes feeling generally weak. She denies any sore throat, runny nose or sputum production. She denies any abdominal pain or pain on urination. She has not had any diarrhea or constipation lately. She already feels better since arriving at the hospital. Her symptoms all get better when she sits up and get worse when she lays down. [facility] Medical History History of tobacco abuse (Chronic) HO (nonalcoholic steatohepatitis) (Chronic) Hx of migraines (Chronic) Osteoarthritis (Chronic) Dyslipidemia (Chronic) GERD (gastroesophageal reflux disease) (Chronic) Hypertension (Chronic) Diabetes mellitus (Chronic) Benign hypertension Diabetes mellitus Hyperlipidemia Nonalcoholic steatohepatitis (HO) Transient ischemic attack Surgical History H/O hernia repair (Chronic) H/O unilateral oophorectomy (Chronic) H/O shoulder surgery (Chronic) H/O total hip arthroplasty (Chronic) Appendectomy Diagnostic Laproscopy Ligation of fallopian tube Oophrectomy, Right Rotator Cuff Repair repair wrist Family History Mother Diabetes Father Hypertensive disorder, systemic arterial Crohn's disease Stroke Social History Smoking/Tobacco Use Status: Former Tobacco Use substance use type: does not use additional social history: with 1 daughter. Retired from the [employer]. Former tobacco user. Reports social alcohol use only. Meds Home Medications Medication Instructions Recorded Confirmed Type ciclopirox [Loprox] 45 gm TOPICAL DAILY NS 11/27/12 08/21/18 History metformin 1,000 mg PO BID NS 11/27/12 08/21/18 History multivitamin [Daily Multi-Vitamin] 1 ea PO DAILY NS 11/27/12 08/21/18 History omeprazole 20 mg PO DAILY tab-cap NS 11/27/12 08/21/18 History simvastatin 40 mg PO DAILY tab-cap NS 11/27/12 08/21/18 History vitamin E 400 unit PO DAILY NS 11/27/12 08/21/18 History Martinic 1 tab PO DAILY 12/08/12 08/21/18 History acetaminophen [Mapap Extra 1,000 mg PO Q8H PRN PRN #100 tab 08/31/17 08/21/18 Rx Strength] cholecalciferol (vitamin D3) 1,000 unit PO DAILY 07/07/18 08/21/18 History [Vitamin D3] fluticasone [Flonase Allergy 1 spray [place] DAILY #16 gm 07/07/18 08/21/18 Rx Relief] latanoprost 1 drp OPHTHALMIC (EYE) DAILY 07/07/18 08/21/18 History omega [id number]-fish oil [Fish Oil] 1,000 mg PO DAILY 07/07/18 08/21/18 History pioglitazone [Actos] 30 mg PO DAILY 07/07/18 08/21/18 History Ventolin HFA 2 puff INHALATION .Q4 HOURS PRN 08/17/18 08/21/18 History cyanocobalamin (vitamin B-12) 1 tab PO DAILY 08/17/18 08/21/18 History [Vitamin B-12] losartan 100 mg PO DAILY 08/17/18 08/21/18 History magnesium 0.5 tab PO DAILY 08/17/18 08/21/18 History Allergies Allergy/AdvReac Type Severity Reaction Status Date / Time tetanus toxoid, adsorbed Allergy Severe Anaphylaxsi Unverified 08/21/18 06:13 s Latex, Natural Rubber Allergy Intermediate Hives, Unverified 08/21/18 06:13 bandaids Exam Narrative Exam Narrative: General: Pleaseant female, anxious, laying comfortably in bed at 15 degree angle Neurological: A&Ox3, no focal deficits Psychiatric: anxious, appropriate speech pattern and content; does perseverate on her symptoms and shows me the log with multiple entries per day of how she is feeling Skin: no bruises/rashes HEENT: EOMI, MMM, clear oropharynx, no submandibular or cervical lymphadenopathy, no goiter or JVD Cardiovascular: RRR, +AALIYAH Lungs: CTAB Gastrointestinal: abdomen soft, nontender, nondistended Extremities: no edema, clubbing or cyanosis of BLE's noted Results Imaging Additional studies: CXR: No evidence of acute disease. Labs : 08/21/18 06:02 08/21/18 06:02 Laboratory Results - last 24 hr 08/21/18 08/21/18 08/21/18 06:02 06:02 06:02 WBC 5.54 RBC 4.06 Hgb 13.2 Hct 38.0 MCV 93.6 MCH 32.5 MCHC 34.7 RDW 13.0 Plt Count 260 MPV 9.3 Immature Gran % 0.2 Neutrophils % 45.2 Lymphocytes % 43.9 Monocytes % 8.1 Eosinophils % 2.2 Basophils % 0.4 Absolute Neutrophils 2.51 Absolute Lymphocytes 2.43 Absolute Monocytes 0.45 Absolute Eosinophils 0.12 Absolute Basophils 0.02 Sodium 138 Potassium 3.9 Chloride 103 Carbon Dioxide 24.9 Anion Gap 10.1 BUN 13 D Creatinine 0.77 D Estimated GFR/1.73 m2 >= 60.00 Glucose 144 H Lactate Calcium 9.1 Magnesium 1.3 L Total Bilirubin 0.6 AST 22 ALT 29 Alkaline Phosphatase 46 Troponin I < 0.02 NT-Pro-B Natriuret Pep Total Protein 7.1 Albumin 3.6 Lipase 124 Urine Color Urine Clarity Urine pH Ur Specific [place] Urine Protein Urine Ketones Urine Blood Urine Nitrite Urine Bilirubin Urine Urobilinogen Ur Leukocyte Esterase Urine Glucose 12/08/21/18 08/21/18 06:25 06:50 07:10 WBC RBC Hgb Hct MCV MCH MCHC RDW Plt Count MPV Immature Gran % Neutrophils % Lymphocytes % Monocytes % Eosinophils % Basophils % Absolute Neutrophils Absolute Lymphocytes Absolute Monocytes Absolute Eosinophils Absolute Basophils Sodium Potassium Chloride Carbon Dioxide Anion Gap BUN Creatinine Estimated GFR/1.73 m2 Glucose Lactate 1.7 H Calcium Magnesium Total Bilirubin AST ALT Alkaline Phosphatase Troponin I NT-Pro-B Natriuret Pep 314 H Total Protein Albumin Lipase Urine Color Yellow Urine Clarity Clear Urine pH 6.0 Ur Specific [place] <= 1.005 Urine Protein Negative Urine Ketones Negative Urine Blood Negative Urine Nitrite Negative Urine Bilirubin Negative Urine Urobilinogen 0.2 Ur Leukocyte Esterase Negative Urine Glucose Negative 08/21/18 09:05 WBC RBC Hgb Hct MCV MCH MCHC RDW Plt Count MPV Immature Gran % Neutrophils % Lymphocytes % Monocytes % Eosinophils % Basophils % Absolute Neutrophils Absolute Lymphocytes Absolute Monocytes Absolute Eosinophils Absolute Basophils Sodium Potassium Chloride Carbon Dioxide Anion Gap BUN Creatinine Estimated GFR/1.73 m2 Glucose Lactate Calcium Magnesium Total Bilirubin AST ALT Alkaline Phosphatase Troponin I < 0.02 NT-Pro-B Natriuret Pep Total Protein Albumin Lipase Urine Color Urine Clarity Urine pH Ur Specific [place] Urine Protein Urine Ketones Urine Blood Urine Nitrite Urine Bilirubin Urine Urobilinogen Ur Leukocyte Esterase Urine Glucose Last Vital Signs Temp 36.4 C L 08/21/18 16:32 Pulse 74 08/21/18 16:39 Resp 18 08/21/18 16:32 BP 136/61 08/21/18 16:32 Pulse Ox 96 08/21/18 16:32
[2018-08-21] MEDS: Pantoprazole 40 MG VIAL IVP (18:08)
[2018-08-21] MEDS: Normal Saline Flush 10 ML SYR IVP (18:10)
[2018-08-21] MEDS: Magnesium Chloride 64 MG TABCR PO (20:25)
[2018-08-21] MEDS: Metoclopramide 10 MG/2 ML VIAL IVP (21:38)
[2018-08-22] VITALS (11 sets, daily range): BP systolic 104–132; BP diastolic 56–70; PULSE 68–92; RESP 16–18; TEMP 35.8–37.4; O2SAT 94–99
[2018-08-22] MEDS: Normal Saline 1,000 ML 75 ML IV ×2 (03:59→16:43)
[2018-08-22 06:52] LABS: HCT 36.2 % (36.0-46.0); HGB 12.2 g/dL (12.0-15.5); Mean Corp. HGB Concentration 33.7 g/dL (32.0-36.0); Mean Corpuscular Hemoglobin 32.3 pg (27.0-33.0); Mean Corpuscular Volume 95.8 fL (80-95); Mean Platelet Volume 9.3 fL (8.0-11.0); Platelet Count 239 x1000/uL (130-400); RBC 3.78 m/cumm (4.00-5.20); RBC Distribution Width 13.2 % (11.7-14.6); White Blood Cell Count 4.85 k/cumm (4.4-10.8)
[2018-08-22 07:14] LABS: Anion Gap 7.3 mmol/L (3-11); BUN 12 mg/dL (7-18); CO2 26.7 mmol/L (21.0-32.0); CREATININE 0.81 mg/dL (0.55-1.02); Calcium 8.1 mg/dL (8.5-10.1); Chloride 105 mmol/L (98-107); Glucose 155 mg/dL (70-100); Magnesium 1.8 mg/dL (1.8-2.4); Potassium 4.2 mmol/L (3.5-5.1); Sodium 139 mmol/L (136-145); TSH (W/Ref FT4) 2.05 uIU/mL (0.358-3.74)
[2018-08-22] MEDS: Magnesium Chloride 64 MG TABCR PO ×2 (07:45→20:39)
[2018-08-22] MEDS: Omega-3 Fatty Acids 1000 MG CAP PO (07:45)
[2018-08-22] MEDS: Simvastatin 20 MG TAB 40 MG PO (07:45)
[2018-08-22] MEDS: Multivitamin TAB 1 TAB PO (07:46)
[2018-08-22] MEDS: Vitamin E 400 UNITS CAP PO (07:46)
[2018-08-22] MEDS: Cyanocobalamin 500 MCG TAB 1000 MCG PO (07:46)
[2018-08-22] MEDS: Losartan 50 MG TAB 100 MG PO (07:46)
[2018-08-22] MEDS: Insulin Aspart 300 UNITS/3 ML PEN SC (07:47)
[2018-08-22] MEDS: MAGNESIUM SULFATE 2 GM/50 ML BAG IVPB (09:18)
[2018-08-22] MEDS: Enoxaparin 40 MG/0.4 ML SYR SC (09:19)
--- NOTE | 2018-08-22 09:38 | PHARADMIT ---
Admission Pharmacy Clinical Review Hypomagnesemia, generalized weakness (??Gasroparesis) Code Status Full Code Current Weight Wgt- 89 kg Renally Cleared and Narrow Therapeutic Index Meds CrCl~ 64.8 mL/min Meds-OK QTc Value / Action Taken QTc-468 (Protonix, BP Control, Fever BP- 127/63 Tmax- 37.4C Electrolytes reviewed Na- 139 K+4.2 Mag-1.8 DVT Prophylaxis Lovenox Opiate Usage / Scheduled Bowel Regimen Ordered No Yes Plt/SCr for Heparin / Enoxaparin Plts-239 SCr-0.81 INR for Warfarin NA H/H stable, WBC/Bands H&H- 12.2/36.2 WBC_4.85 Antibiotic appropriateness none Cultures and Sensitivities Blood-No Growth/24 hrs Surgical ABX d/c within 24 hr na DM control / Insulin Dosing BG- 155 Aspart Heart Failure (Check EF%) (SVETLANA's, B-Block, Diuretics) Losartan, IV to PO Switch No Home Meds Reviewed Yes Home Meds Not Ordered B-12 intrinsic factor, Actos, Simvastatin, mETFORMIN, Comments
--- NOTE | 2018-08-22 11:14 | PDOC.CMIN ---
- If Service Date Differs Date of service: 08/22/18 Time of Service: 11:14 Care Management Initial Assess REASON FOR HOSPITALIZATION:: Atypical chest pain PAST MEDICAL HISTORY/PAST SURGICAL HISTORY:: Shelby states she has had several ED visits over the past month including [place] and [facility] related to chest pain. She has a history of TIA, Osteoarthritis, HO, Hypertension, hyperlipidemia, migraines, tobacco abuse, GERD, Dyslipidemia, DM, benign hypertension, appendectomy, diagnostic laproscopy, hernia repair, shoulder surgery, total hip arthroplasty, unilateral oophorectomy, ligation of fallopian tube, oophrectomy, repair wrist, rotator cuff repair PREVIOUS FUNCTIONAL STATUS/SOCIAL/FAMILY SUPPORTS:: Shelby resides in [place], [place] with her of 27 years, Max. She has one biological child and two step children with her , Max. She is independent at baseline she states she has a hip replacement in [facility] of this year. She states she tries to walk often. CURRENT FUNCTIONAL STATUS:: Shelby states she feels good today. She did have pain and nausea last evening after laying her head flat. Today she is ordering pizze with extra cheese and onions. Shelby has knowledge deficit related to diagnosis of GERD chronic and acute. Shelby states she is sensitive to medication changes and often stops medicaitons based on how they make her feel. She reports the pain she has often is mid upper abdoman and sometimes very strong through her mid back. Shelby is engaged she during assessment she reviews all events that led to admission, (see readmission assessment). ADVANCE DIRECTIVES:: None on file at [facility] Has patient been provided with information about the portal?: Yes Did the patient sign up for the portal?: No CODE STATUS:: Full Code INSURANCE COVERAGE / FINANCIAL ISSUES:: Medicare and financial assistance CURRENT HOME/COMMUNITY SERVICES/EQUIPMENT:: None at this time PRIMARY CARE PHYSICIAN:: Koby Trimble POTENTIAL DISCHARGE NEEDS:: Follow up appointment is scheduled for the with primary care provider PATIENT/FAMILY EDUCATION NEEDS:: Discharge eductation. limitations and follow up plan of care, including self managemenet and ask me thrree. ANTICIPATED BARRIERS TO DISCHARGE:: None identified. TRANSPORTATION:: Via private car with spouse at time of discharge PLAN:: Shelby will be discharged home when medically ready per proviver. Readmission - Within the Past 30 Days Yes or No: Y - Date of First Admission Date of 1st Admission: 08/17/18 - Date of this Admission Date of Admission: 08/21/18 - Office Visit Since 1st Admission Have you seen your PCP in the office since discharge?: No Had an appointment Been Scheduled?: Yes Date of Scheduled Appointment: 08/24/18 Describe barriers for scheduling or getting an appointment: became sick over the weekend office not open - I. Interview patient and/or Family Difficulty reaching your doctor or getting an office appt?: No Have you had trouble purchasing/ or taking medication?: No How do you take your medications and set up your pills?: Pt states I have difficulty taking new medications I am really sensitive. Have you had trouble with getting meals at home?: No Describe your typical meals since you have been home: I have not been able to eat much due my throat feeling full and chest discomfort which is much worse when I lay flat. Did you feel ready for discharge when you left the last time: Yes Did you call your physician beore you came to the ED?: No Did your physician tell you to come in?: No How do you think you became sick enough to come back?: I went home and went back to my same routine. My symptoms came back when I would lay down until I returned after two days of the pain and nausea getting worse. - ED visits How many ED visits in the past 12 months: 4 - Assessment for Readmission Summary of readmission circumstances, based upon interviews: Patient states that for the past month she has had difficulty lying flat. She recently was on multiple antibiotics for pneumonia after completion her symptoms became worse. She is not aware of nutrition or treatment for GERD. She believes she was told during her last admission she would need one of her valves replaced due to leaking heart valve. She has not met with cardiology again at this time she states I was told this heart condition is severe. Patient describes stress including her spouses recent diagnosis of prostate cancer and new treatments set to start on 08/30/2018. She states she has to be well for him and feels better being at the hospital so that her symptoms of illness can be seen. CM recognizes knowledge deficit related to acute and chronic conditions. Shelby will benefit from ongoing education related to acute diagnosis.
--- NOTE | 2018-08-22 11:31 | INITIAL_ITS ---
- If Service Date Differs Date of service: 08/22/18 Time of Service: 11:14 Care Management Initial Assess REASON FOR HOSPITALIZATION:: Atypical chest pain PAST MEDICAL HISTORY/PAST SURGICAL HISTORY:: Shelby states she has had several ED visits over the past month including [place] and [facility] related to chest pain. She has a history of TIA, Osteoarthritis, HO, Hypertension, hyperlipidemia, migraines, tobacco abuse, GERD, Dyslipidemia, DM, benign hypert ension, appendectomy, diagnostic laproscopy, hernia repair, shoulder surgery, total hip arthroplasty, unilateral oophorectomy, ligation of fallopian tube, oophrectomy, repair wrist, rotator cuff repair PREVIOUS FUNCTIONAL STATUS/SOCIAL/FAMILY SUPPORTS:: Shelby resides in [place], [place] with her of 27 years, Max. She has one biological child and two step children with her , Max. She is independent at baseline she states she has a hip replacement in [facility] of this year. She states she tries to walk often. CURRENT FUNCTIONAL STATUS:: Shelby states she feels good today. She did have pain and nausea last evening after laying her head flat. Today she is ordering pizze with extra cheese and onions. Shelby has knowledge deficit related to diagnosis of GERD chronic and acute. Shelby states she is sensitive to medication changes and often stops medicaitons based on how they make her feel. She reports the pain she has often is mid upper abdoman and sometimes very strong through her mid back. Shelby is engaged she during assessment she reviews all events that led to admission, (see readmission assessment). ADVANCE DIRECTIVES:: None on file at [facility] Has patient been provided with information about the portal?: Yes Did the patient sign up for the portal?: No CODE STATUS:: Full Code INSURANCE COVERAGE / FINANCIAL ISSUES:: Medicare and financial assistance CURRENT HOME/COMMUNITY SERVICES/EQUIPMENT:: None at this time PRIMARY CARE PHYSICIAN:: Koby Trimble POTENTIAL DISCHARGE NEEDS:: Follow up appointment is scheduled for the with primary care provider PATIENT/FAMILY EDUCATION NEEDS:: Discharge eductation. limitations and follow up plan of care, including self managemenet and ask me thrree. ANTICIPATED BARRIERS TO DISCHARGE:: None identified. TRANSPORTATION:: Via private car with spouse at time of discharge PLAN:: Shelby will be discharged home when medically ready per proviver. Readmission - Within the Past 30 Days Yes or No: Y - Date of First Admission Date of 1st Admission: 08/17/18 - Date of this Admission Date of Admission: 08/21/18 - Office Visit Since 1st Admission Have you seen your PCP in the office since discharge?: No Had an appointment Been Scheduled?: Yes Date of Scheduled Appointment: 08/24/18 Describe barriers for scheduling or getting an appointment: became sick over the weekend office not open - I. Interview patient and/or Family Difficulty reaching your doctor or getting an office appt?: No Have you had trouble purchasing/ or taking medication?: No How do you take your medications and set up your pills?: Pt states I have difficulty taking new medications I am really sensitive. Have you had trouble with getting meals at home?: No Describe your typical meals since you have been home: I have not been able to eat much due my throat feeling full and chest discomfort which is much worse when I lay flat. Did you feel ready for discharge when you left the last time: Yes Did you call your physician beore you came to the ED?: No Did your physician tell you to come in?: No How do you think you became sick enough to come back?: I went home and went back to my same routine. My symptoms came back when I would lay down until I returned after two days of the pain and nausea getting worse. - ED visits How many ED visits in the past 12 months: 4 - Assessment for Readmission Summary of readmission circumstances, based upon interviews: Patient states that for the past month she has had difficulty lying flat. She recently was on multiple antibiotics for pneumonia after completion her symptoms became worse. She is not aware of nutrition or treatment for GERD. She believes she was told during her last admission she would need one of her valves replaced due to leaking heart valve. She has not met with cardiology again at this time she states I was told this heart condition is severe. Patient describes stress including her spouses recent diagnosis of prostate cancer and new treatments set to start on 08/30/2018. She states she has to be well for him and feels better being at the hospital so that her symptoms of illness can be seen. CM recognizes knowledge deficit related to acute and chronic conditions. Shelby will benefit from ongoing education related to acute diagnosis.
--- NOTE | 2018-08-22 16:43 | W.PM.PROGNOT ---
Date of Service Date of service: 08/22/18 Time of Service: 16:43 Assessment and Plan (1) Atypical chest pain: Current visit: Yes Status: Acute Likely due to esophagitis -specifically, GERD. Gastroparesis could be contributing, as the patient describes the sensation of food just sitting there. Patient has now received counseling on GERD. She is planned to undergo a gastric emptying study tomorrow. For now, we will continue IV protonix. NPO after midnight. (Gastric emptying study could not be done today due to holiday). (2) GERD (gastroesophageal reflux disease): Current visit: No Status: Chronic As above - likely contributing to patient's symptoms. (3) Hypomagnesemia: Current visit: Yes Status: Acute Repeat magnesium level is better - however, the patient will need to stay on maintenance magnesium regimen, which she has not been taking as prescribed due to diarrhea. She will be discharged home with slow-mag and follow up labs. (4) Hematemesis with nausea: Current visit: Yes Status: Resolved This is likely from a Naina-Porras tear. Hemoccult negative. Ok to start lovenox today. (5) Gastroparesis: Current visit: Yes Status: Suspected As above - gastric emptying study ordered. (6) Diabetes mellitus: Current visit: No Status: Chronic Hold oral medications. Continue corrective insulin. Patient encouraged to check her sugars at home (7) Hypertension: Current visit: No Status: Chronic Continue home meds (8) Obesity (BMI 30.0-34.9): Current visit: Yes Status: Acute Encourage life-style changes (9) Discharge planning issues: Current visit: Yes Status: Acute Discharge home tomorrow after GES (10) DVT prophylaxis: Current visit: No Status: Acute SCD's + lovenox Subjective Interval history since last seen: Shelby feels a lot better today. She states that last night, when she layed flat, she again got nauseated. Reglan helped. Evidently, she layed flat yesterday to try to ellicit the symptoms. She was counselled on not doing that, to laying at an angle. She was offered a choice as far as staying to get the gastric emptying study done while here tomorrow - or as outpatient. She thinks it will be better to get it done here. She denies dizziness, chest pain, shortness of breath, nausea, vomiting at this time. Exam Narrative Exam Narrative: General: Pleaseant female, anxious, laying comfortably in bed at 30 degree angle Neurological: A&Ox3, no focal deficits Psychiatric: anxious, appropriate speech pattern and content Skin: no bruises/rashes HEENT: EOMI, MMM, clear oropharynx, no submandibular or cervical lymphadenopathy, no goiter or JVD Cardiovascular: RRR, +AALIYAH Lungs: CTAB Gastrointestinal: abdomen soft, nontender, nondistended Extremities: no edema, clubbing or cyanosis of BLE's noted Objective Objective Clinical Data: Abnormal lab results 08/22/18 08/22/18 Range/Units 06:25 06:25 RBC 3.78 L (4.00-5.20) m/cumm MCV 95.8 H (80-95) fL Glucose 155 H (70-100) mg/dL Calcium 8.1 L (8.5-10.1) mg/dL Vital Signs Temperature 36.4 C L 08/22/18 15:20 Temperature Source Tympanic 08/22/18 15:20 Pulse 84 08/22/18 15:20 Pulse Rhythm Regular 08/22/18 08:21 Pulse 86 08/21/18 07:50 Respiratory Rate 18 08/22/18 15:20 Respiratory Effort 08/22/18 08:29 Respiratory Depth Normal 08/22/18 08:29 Respiratory Pattern Normal 08/22/18 08:21 Blood Pressure 132/70 08/22/18 15:20 Blood Pressure Mean 84 08/22/18 08:29 Blood Pressure Position Supine 08/22/18 08:29 Pulse Oximetry 94 L 08/22/18 15:20 Oxygen Delivery Method Room Air 08/22/18 15:20 Oxygen Flow Rate 0 08/22/18 15:20 Pain Level 0 08/22/18 11:32 Comment 08/22/18 03:37 Intake & Output 08/21/18 08/22/18 08/22/18 23:59 11:59 23:59 Intake Total 1062.5 / 1422.5 1502.5 / 1502.5 Output Total 1150 / 1150 600 / 600 Balance -87.5 / 272.5 902.5 / 902.5 Weight 89.2 kg 89 kg Intake: IV 272.5 / 632.5 812.5 / 812.5 Oral 790 / 790 690 / 690 Output: Urine 1150 / 1150 600 / 600 Other: Urine Color Yellow Yellow Urine Appearance Clear Clear Urine Odor Normal Comment Void x1 in the toilet. Paitent goes to bathroom independently. Stool Occult Blood Negative Stool Size Moderate Stool Characteristics Formed Voiding Methods Toilet Toilet Laboratory Results WBC 4.85 k/cumm (4.4-10.8) 08/22/18 06:25 RBC 3.78 m/cumm (4.00-5.20) L 08/22/18 06:25 Hgb 12.2 g/dL (12.0-15.5) 08/22/18 06:25 Hct 36.2 % (36.0-46.0) 08/22/18 06:25 MCV 95.8 fL (80-95) H 08/22/18 06:25 MCH 32.3 pg (27.0-33.0) 08/22/18 06:25 MCHC 33.7 g/dL (32.0-36.0) 08/22/18 06:25 RDW 13.2 % (11.7-14.6) 08/22/18 06:25 Plt Count 239 x1000/uL (130-400) 08/22/18 06:25 MPV 9.3 fL (8.0-11.0) 08/22/18 06:25 Immature Gran % 0.2 08/21/18 06:02 Neutrophils % 45.2 08/21/18 06:02 Lymphocytes % 43.9 08/21/18 06:02 Monocytes % 8.1 08/21/18 06:02 Eosinophils % 2.2 08/21/18 06:02 Basophils % 0.4 08/21/18 06:02 Absolute Neutrophils 2.51 k/cumm (1.2-6.7) 08/21/18 06:02 Absolute Lymphocytes 2.43 k/cumm (1.2-3.4) 08/21/18 06:02 Absolute Monocytes 0.45 k/cumm (0.11-0.7) 08/21/18 06:02 Absolute Eosinophils 0.12 k/cumm (0.0-0.7) 08/21/18 06:02 Absolute Basophils 0.02 k/cumm (0.0-0.2) 08/21/18 06:02 Sodium 139 mmol/L (136-145) 08/22/18 06:25 Potassium 4.2 mmol/L (3.5-5.1) 08/22/18 06:25 Chloride 105 mmol/L (98-107) 08/22/18 06:25 Carbon Dioxide 26.7 mmol/L (21.0-32.0) 08/22/18 06:25 Anion Gap 7.3 mmol/L (3-11) 08/22/18 06:25 BUN 12 mg/dL (7-18) 08/22/18 06:25 Creatinine 0.81 mg/dL (0.55-1.02) 08/22/18 06:25 Estimated GFR/1.73 m2 >= 60.00 (mL/min/1.73m2) 08/22/18 06:25 Glucose 155 mg/dL (70-100) H 08/22/18 06:25 Lactate 1.7 mmol/L (0.6-1.4) H 08/21/18 06:50 Calcium 8.1 mg/dL (8.5-10.1) L 08/22/18 06:25 Magnesium 1.8 mg/dL (1.8-2.4) 08/22/18 06:25 Total Bilirubin 0.6 mg/dL (0.2-1.0) 08/21/18 06:02 AST 22 U/L (15-37) 08/21/18 06:02 ALT 29 U/L (12-78) 08/21/18 06:02 Alkaline Phosphatase 46 U/L (46-116) 08/21/18 06:02 Troponin I < 0.02 ng/mL (0.00-0.06) 08/21/18 09:05 NT-Pro-B Natriuret Pep 314 pg/mL (-299) H 08/21/18 06:25 Total Protein 7.1 g/dL (6.4-8.2) 08/21/18 06:02 Albumin 3.6 g/dL (3.4-5.0) 08/21/18 06:02 Lipase 124 U/L (73-393) 08/21/18 06:02 TSH 2.05 uIU/mL (0.358-3.74) 08/22/18 06:25 Urine Color Yellow (Yellow) 08/21/18 07:10 Urine Clarity Clear 08/21/18 07:10 Urine pH 6.0 (5-8) 08/21/18 07:10 Ur Specific [place] <= 1.005 (1.005-1.025) 08/21/18 07:10 Urine Protein Negative mg/dL (Negative) 08/21/18 07:10 Urine Ketones Negative mg/dL (Negative) 08/21/18 07:10 Urine Blood Negative (Negative) 08/21/18 07:10 Urine Nitrite Negative (Negative) 08/21/18 07:10 Urine Bilirubin Negative (Negative) 08/21/18 07:10 Urine Urobilinogen 0.2 EU/dL (Up TO 0.2) 08/21/18 07:10 Ur Leukocyte Esterase Negative (Negative) 08/21/18 07:10 Urine Glucose Negative mg/dL (Negative) 08/21/18 07:10
[2018-08-22] MEDS: Pantoprazole 40 MG VIAL IVP (17:49)
[2018-08-22] MEDS: Normal Saline Flush 10 ML SYR IVP (17:50)
[2018-08-23 04:33] VITALS: BP 107/59; PULSE 80; RESP 16; TEMP 37.2; O2SAT 100
[2018-08-23] MEDS: Normal Saline 1,000 ML 75 ML IV (05:44)
[2018-08-23 07:20] LABS: Anion Gap 7.2 mmol/L (3-11); BUN 13 mg/dL (7-18); CO2 26.8 mmol/L (21.0-32.0); Calcium 8.4 mg/dL (8.5-10.1); Chloride 107 mmol/L (98-107); Glucose 155 mg/dL (70-100); Magnesium 1.5 mg/dL (1.8-2.4); Sodium 141 mmol/L (136-145)
[2018-08-23 07:25] VITALS: BP 128/62; PULSE 62; RESP 18; TEMP 36.7; O2SAT 95
--- NOTE | 2018-08-23 08:00 | DI.NM_ITS ---
SYMPTOMS/DIAGNOSIS: EARLY SATIETY, BLOATING, SUSPECTED GASTROPARESIS GASTRIC EMPTYING STUDY: Gastric emptying study was performed with ingestion of meal containing 0.9 mCi of technetium 99 labelled sulfur colloid. Residual radiopharmaceutical in the stomach at 1, 2 and 4 hours is 68%, 10% and 0.7%, respectively. These are in the normal predicted range. CONCLUSION: Normal gastric emptying study.
[2018-08-23 09:15] VITALS: O2SAT 95
[2018-08-23 11:50] VITALS: BP 151/71; PULSE 84; RESP 18; TEMP 36.4; O2SAT 98
--- NOTE | 2018-08-23 13:09 | PDOC.CMDIS ---
- If Service Date Differs Date of service: 08/23/18 Time of Service: 13:09 LACE Index Scoring Tool - Questions: Length of Stay (in days): 3 Acuity (Admit via E.D.?): Yes Comorbidities: Diabetes w/o Complication E.D. Visits: 3 - Answers: Total Score: 10 Risk of Readmission: High Risk Care Management Discharge Reason for Hospitalization: Atypical chest pain Discharge Plan: Shelby will be discharged today. She has received education on her GERD, and Mitral regurgitation. She will meet with her primary care on and have her cardiac stress test on Tuesday. She feels that she is ready to return home and understands her condition much better. Her daughter is with her at time of discharge and was able to particpate in discharge instructions. CM faxed discharge information to chronic child adolescent care in [place]. Shelby is being transported to home via private car and with family. Patient/Family Education Needs: Discharge education, limitations and follow up plan of care including ask me three and self management. Reviewed risk of DM, complicaitons of GERD and Cardiology follow up. Reviewed health information and the benefits of followiing up with primary care and chronic child adolescent care at the pcp office. Shelby is able to articulate the plan and ask appropiate questions r/t follow up.
[2018-08-23] MEDS: MAGNESIUM SULFATE 1 GM/100 ML BAG IVPB (13:51)
--- NOTE | 2018-08-23 14:00 | CHAPLAIN ---
I had met Shelby on her previous admission. She said she hopes to be going home today. She said she told her not to come and visit as she wants to focus and getting better, and discharged. She had family members, including grandchildren, visiting yesterday and she hopes to get home before other relatives arrive, but she said she knows she needs to stay until she is recovered enough to go home and stay home.
--- NOTE | 2018-08-23 15:42 | W.PM.DS.N ---
Date of service: 08/23/18 Time of Service: 15:43 DS: Diagnosis Discharge Diagnosis (1) Atypical chest pain: Status: Acute (2) GERD (gastroesophageal reflux disease): Status: Chronic (3) Hypomagnesemia: Status: Acute (4) Hematemesis with nausea: Status: Resolved (5) Gastroparesis: Status: Suspected (6) Diabetes mellitus: Status: Chronic (7) Hypertension: Status: Chronic (8) Obesity (BMI 30.0-34.9): Status: Acute Discharge Plan Disposition Patient Disposition: HOME Condition: Stable Discharge Details Reason For Visit: HYPOMAGNESEMIA, GENERALIZED WEAKNESS Admit Date/Time: 08/21/18 12:31 Admit Provider: Elma Maxwell Attending Provider: Elma Maxwell Primary Care Provider: Koby Trimble [facility] Course Hospital Course: Shelby Hayes is a 63 year old female with past medical history of recently treated pneumonia, mitral regurgitation, non-insulin dependent diabetes mellitus, hypertension, hyperlipidemia, who was recently discharged from the hospitalist service on 08/18/18 after a brief observation for chest pain and found to have mitral regurgitation, who re-presented back to [facility] ED on 08/21/18 complaining of symptoms that start when she lays down. She described chest pain, an awful taste in her mouth, nausea accompanied by sensation of chills/feeling cold, shortness of breath/cough. She reported that she sometimes feels that her food just sits in her stomach. She denied abdominal pain, diarrhea, or constipation. She has been vomiting pink contents. She states she had an endoscopy 2 years ago which showed that she had GERD, and that's when she was initiated on omeprazole 20 mg PO daily. Her constellation of symptoms were thought to be related to esophagitis with her history of GERD versus gastroparesis. She underwent a gastric emptying study which was normal. Her PPI dose was increased. She was counseled on GERD and dietary recommendations. She was advised to follow a low acid diet. She was also found to have hypomagnesemia. She was previously on oral magnesium replacement, however, she experienced diarrhea and stopped taking the magnesium. She received both IV and oral supplementation. She will be discharged on oral magnesium supplementation and given information on dietary magnesium sources. Mrs. Hayes has seen general surgery in the past and would like to follow up here at [facility]. She may benefit from an EGD to further workup her symptoms. She is advised to keep her head of bed elevated and avoid aggravating foods. She also reports a significant amount of stress in her life as her has recently been diagnosed with prostate cancer. She was recently treated for pneumonia with doxycycline, which could have contributed to her increased acid reflux. On the day of discharge, she feels better, she is not experiencing nausea or abdominal pain. She denies chest pain or shortness of breath. Of note, Shelby' Losartan was held on the morning of discharge for gastric emptying test. Her blood pressure prior to discharge (without taking losartan) was 111/54. She will discuss possibly decreasing her Losartan with her PCP at follow up as she is seeing her PCP the day following discharge. She will not take Losartan until she is advised to do so by her PCP. She had a cardiac stress test scheduled for 08/25/18 to follow up on her chest pain. She will keep this appointment. She has follow up scheduled with her PCP on 08/24/18. She will have follow up labs on 08/25/18 to reassess her magnesium level. Home Meds and New Rx's Prescriptions: New magnesium chloride [Mag 64] 64 mg Tablet,Delayed Release (Dr/Ec) 64 mg PO BID Qty: 60 RF: 0 omeprazole 40 mg capsule,delayed release(DR/EC) 40 mg PO DAILY Qty: 30 RF: 0 Continued multivitamin [Daily Multi-Vitamin] 1 EACH tablet 1 ea PO DAILY RF: 0 simvastatin 20 MG tablet 40 mg PO DAILY RF: 0 metformin 1,000 MG tablet 1,000 mg PO BID RF: 0 vitamin E 400 UNIT capsule 400 unit PO DAILY RF: 0 ciclopirox [Loprox] 45 GM gel 45 gm Topical DAILY RF: 0 Martinic 1 EACH capsule 1 tab PO DAILY RF: 0 Ventolin HFA 90 mcg/actuation Hfa Aerosol Inhaler 2 puff Inhalation .Q4 HOURS PRNRF: 0 losartan 100 mg Tablet 100 mg PO DAILY RF: 0 cyanocobalamin (vitamin B-12) [Vitamin B-12] 1,000 mcg Tablet 1 tab PO DAILY RF: 0 acetaminophen [Mapap Extra Strength] 500 MG tablet 1,000 mg PO Q8H PRN PRNQty: 100 RF: 3 latanoprost 0.005 % Drops 1 drp ophthalmic (eye) DAILY RF: 0 pioglitazone [Actos] 30 mg Tablet 30 mg PO DAILY RF: 0 cholecalciferol (vitamin D3) [Vitamin D3] 1,000 unit Capsule 1,000 unit PO DAILY RF: 0 omega 1-oex-tlz-fish oil [Fish Oil] 1,000 mg (120 mg-180 mg) Capsule 1,000 mg PO DAILY RF: 0 fluticasone [Flonase Allergy Relief] 50 mcg/actuation spray,suspension 1 spray [place] DAILY Qty: 16 RF: 0 Discontinued omeprazole 10 MG capsule,delayed release(DR/EC) 20 mg PO DAILY RF: 0 magnesium 250 mg Tablet 0.5 tab PO DAILY RF: 0 Discharge Instructions Instructions: Diet for Stomach Ulcers and Gastritis (GEN), Hypomagnesemia (DC) Additional Instructions: Do not take Losartan until you see your PCP, they may decide to decrease your dose. Your magnesium has been low, you will need to take supplementation and have follow up level drawn on 08/25/18. You should add magnesium rich foods into your diet. Examples of foods that contain magnesium: avocado, almonds, spinach, cashews, bananas, pumpkin seeds, greens, brown rice, whole grains, salmon. Avoid acidic foods such as red sauces, spicy foods, onions, garlic, fried foods, coffee, alcohol, tomatoes (see handout). Your omeprazole dose has been increased. Do not lay flat, keep your head elevated. Follow up with your PCP as scheduled tomorrow. The General Surgery office is closed today, we will contact them to set up an appointment tomorrow. If you do not hear from them in the next couple of days, please call them. Your stress test appointment is Tuesday08/25/18, be sure to keep this appointment. Take care! Stand Alone Forms: Nursing Discharge Form Activity:: Activity as Tolerated Equipment/Supplies:: No Equipment Needed Diet:: Low acid. Discharge Orders Discharge Orders: Discharge Order (Routine); Ordered 08/23/18 Ordered By: Pao Garduno Other Ambulatory Orders: Magnesium (Routine) Timeframe: [id number] Facility: [facility] - Location: Laboratory Outpatient Ordered By: Pao Garduno Exam Narrative Exam Narrative: General: Pleasant female, anxious, sitting up in bed. Neurological: Alert and oriented x3, no focal deficits Psychiatric: anxious, appropriate speech pattern and content, answers questions appropriately, makes good eye contact. Skin: no bruises or rashes HEENT: Normocephalic, atraumatic, pupils equal and round, mucous membranes moist. Neck: supple, no JVD Lungs: Respirations even and unlabored. Gastrointestinal: abdomen soft, nontender, nondistended Extremities: no edema, clubbing or cyanosis of BLE's noted DS: Data Vitals/I&O Vitals and I&O: Vital Signs Temperature 36.4 C L 08/23/18 11:50 Temperature Source Tympanic 08/23/18 11:50 Pulse 84 08/23/18 11:50 Pulse Rhythm Regular 08/23/18 07:55 Pulse 86 08/21/18 07:50 Respiratory Rate 18 08/23/18 11:50 Respiratory Effort Non-Labored 08/23/18 07:55 Respiratory Depth Normal 08/23/18 07:55 Respiratory Pattern Normal 08/23/18 07:55 Blood Pressure 151/71 H 08/23/18 11:50 Blood Pressure Mean 84 08/22/18 08:29 Blood Pressure Position Supine 08/22/18 08:29 Pulse Oximetry 98 08/23/18 11:50 Oxygen Delivery Method Room Air 08/23/18 11:50 Oxygen Flow Rate 0 08/23/18 11:50 Pain Level 0 08/23/18 11:50 Comment 08/22/18 03:37 Intake & Output 08/22/18 08/23/18 08/23/18 23:59 11:59 23:59 Intake Total 1376.25 / 2878.75 855 / 1926.25 1071.25 / 1926.25 Output Total 1000 / 1600 800 / 800 Balance 376.25 / 1278.75 55 / 1126.25 1071.25 / 1126.25 Weight 84.5 kg Intake: IV 1136.25 / 1948.75 855 / 1686.25 831.25 / 1686.25 Oral 240 / 930 240 / 240 Output: Urine 1000 / 1600 800 / 800 Other: Urine Color Yellow Comment pt independent with toileting Pt up voiding in toilet independently. Voiding Methods Toilet Toilet Toilet Completed studies during hospitalization [Text1]: 08/21/18: PA AND LATERAL CHEST: 08/21 The heart is not enlarged. Note is made of mitral annulus calcification. The lungs are clear. No pleural effusion seen. CONCLUSION: No evidence of acute disease. 08/23/18: GASTRIC EMPTYING STUDY: Gastric emptying study was performed with ingestion of meal containing 0.9 mCi of technetium 99 labelled sulfur colloid. Residual radiopharmaceutical in the stomach at 1, 2 and 4 hours is 68%, 10% and 0.7%, respectively. These are in the normal predicted range. CONCLUSION: Normal gastric emptying study. Labs on day of discharge: Labs from last 24 hours 08/23/18 06:25 Sodium 141 Potassium 4.0 Chloride 107 Carbon Dioxide 26.8 Anion Gap 7.2 BUN 13 Creatinine 0.80 Estimated GFR/1.73 m2 >= 60.00 Glucose 155 H Calcium 8.4 L Magnesium 1.5 L Preliminary micro results at discharge 08/21/18 07:00 Blood Culture - Preliminary Blood NO GROWTH 48 HOURS 08/21/18 06:50 Blood Culture - Preliminary Blood NO GROWTH 48 HOURS [facility] Medical History History of tobacco abuse (Chronic) HO (nonalcoholic steatohepatitis) (Chronic) Hx of migraines (Chronic) Osteoarthritis (Chronic) Dyslipidemia (Chronic) GERD (gastroesophageal reflux disease) (Chronic) Hypertension (Chronic) Diabetes mellitus (Chronic) Benign hypertension Diabetes mellitus Hyperlipidemia Nonalcoholic steatohepatitis (HO) Transient ischemic attack Surgical History H/O hernia repair (Chronic) H/O unilateral oophorectomy (Chronic) H/O shoulder surgery (Chronic) H/O total hip arthroplasty (Chronic) Appendectomy Diagnostic Laproscopy Ligation of fallopian tube Oophrectomy, Right Rotator Cuff Repair repair wrist Family History Mother Diabetes Father Hypertensive disorder, systemic arterial Crohn's disease Stroke Social History Smoking/Tobacco Use Status: Former Tobacco Use substance use type: does not use additional social history: with 1 daughter. Retired from the [employer]. Former tobacco user. Reports social alcohol use only.
[2018-08-23 15:45] VITALS: BP 111/54; PULSE 78; RESP 18; TEMP 36.6; O2SAT 94
--- NOTE | 2018-08-23 15:47 | DSE_ITS ---
Date of service: 08/23/18 Time of Service: 15:43 DS: Diagnosis Discharge Diagnosis (1) Atypical chest pain: Status: Acute (2) GERD (gastroesophageal reflux disease): Status: Chronic (3) Hypomagnesemia: Status: Acute (4) Hematemesis with nausea: Status: Resolved (5) Gastroparesis: Status: Suspected (6) Diabetes mellitus: Status: Chronic (7) Hypertension: Status: Chronic (8) Obesity (BMI 30.0-34.9): Status: Acute Discharge Plan Disposition Patient Disposition: HOME Condition: Stable Discharge Details Reason For Visit: HYPOMAGNESEMIA, GENERALIZED WEAKNESS Admit Date/Time: 08/21/18 12:31 Admit Provider: Elma Maxwell Attending Provider: Elma Maxwell Primary Care Provider: Koby Trimble [facility] Course Hospital Course: Shelby Hayes is a 63 year old female with past medical history of recently treated pneumonia, mitral regurgitation, non-insulin dependent diabetes mellitus, hypertension, hyperlipidemia, who was recently discharged from the hospitalist service on 08/18/18 after a brief observation for chest pain and fo und to have mitral regurgitation, who re-presented back to [facility] on 08/21/18 complaining of symptoms that start when she lays down. She described chest pain, an awful taste in her mouth, nausea accompanied by sensation of chills/feeling cold, shortness of breath/cough. She reported that she sometimes feels that her food just sits in her stomach. She denied abdominal pain, diarrhea, or constipa tion. She has been vomiting pink contents. She states she had an endoscopy 2 years ago which showed that she had GERD, and that's when she was initiated on omeprazole 20 mg PO daily. Her constellation of symptoms were thought to be related to esophagitis with her history of GERD versus gastroparesis. She underwent a gastric emptying study which was normal. Her PPI dose was increased. She was counseled on GERD and dietary recommendations. She was advised to follow a low acid diet. She was also found to have hypomagnesemia. She was previously on oral magnesium replacement, however, she experienced diarrhea and stopped taking the magnesium. She received both IV and oral supplementation. She will be discharged on oral magnesium supplementation and given information on dietary magnesium sources. Mrs. Hayes has seen general surgery in the past and would like to follow up here at [facility]. She may benefit from an EGD to further workup her symptoms. She is advised to keep her head of bed elevated and avoid aggravating foods. She also reports a significant amount of stress in her life as her has recently been diagnosed with prostate cancer. She was recently treated for pneumonia with doxycycline, which could have contributed to her increased acid reflux. On the day of discharge, she feels better, she is not experiencing nausea or abdominal pain. She denies chest pain or shortness of breath. Of note, Shelby' Losartan was held on the morning of discharge for gastric emptying test. Her blood pressure prior to discharge (without taking losartan) was 111/54. She will discuss possibly decreasing her Losartan with her PCP at follow up as she is seeing her PCP the day following discharge. She will not take Losartan until she is advised to do so by her PCP. She had a cardiac stress test scheduled for 08/25/18 to follow up on her chest pain. She will keep this appointment. She has follow up scheduled with her PCP on 08/24/18. She will have follow up labs on 08/25/18 to reassess her magnesium level. Home Meds and New Rx's Prescriptions: New magnesium chloride [Mag 64] 64 mg Tablet,Delayed Release (Dr/Ec) 64 mg PO BID Qty: 60 RF: 0 omeprazole 40 mg capsule,delayed release(DR/EC) 40 mg PO DAILY Qty: 30 RF: 0 Continued multivitamin [Daily Multi-Vitamin] 1 EACH tablet 1 ea PO DAILY RF: 0 simvastatin 20 MG tablet 40 mg PO DAILY RF: 0 metformin 1,000 MG tablet 1,000 mg PO BID RF: 0 vitamin E 400 UNIT capsule 400 unit PO DAILY RF: 0 ciclopirox [Loprox] 45 GM gel 45 gm Topical DAILY RF: 0 Martinic 1 EACH capsule 1 tab PO DAILY RF: 0 Ventolin HFA 90 mcg/actuation Hfa Aerosol Inhaler 2 puff Inhalation .Q4 HOURS PRNRF: 0 losartan 100 mg Tablet 100 mg PO DAILY RF: 0 cyanocobalamin (vitamin B-12) [Vitamin B-12] 1,000 mcg Tablet 1 tab PO DAILY RF: 0 acetaminophen [Mapap Extra Strength] 500 MG tablet 1,000 mg PO Q8H PRN PRNQty: 100 RF: 3 latanoprost 0.005 % Drops 1 drp ophthalmic (eye) DAILY RF: 0 pioglitazone [Actos] 30 mg Tablet 30 mg PO DAILY RF: 0 cholecalciferol (vitamin D3) [Vitamin D3] 1,000 unit Capsule 1,000 unit PO DAILY RF: 0 omega 6-emy-fvm-fish oil [Fish Oil] 1,000 mg (120 mg-180 mg) Capsule 1,000 mg PO DAILY RF: 0 fluticasone [Flonase Allergy Relief] 50 mcg/actuation spray,suspension 1 spray CATALINA DAILY Qty: 16 RF: 0 Discontinued omeprazole 10 MG capsule,delayed release(DR/EC) 20 mg PO DAILY RF: 0 magnesium 250 mg Tablet 0.5 tab PO DAILY RF: 0 Discharge Instructions Instructions: Diet for Stomach Ulcers and Gastritis (GEN), Hypomagnesemia (DC) Additional Instructions: Do not take Losartan until you see your PCP, they may decide to decrease your dose. Your magnesium has been low, you will need to take supplementation and have follow up level drawn on 08/25/18. You should add magnesium rich foods into your diet. Examples of foods that contain magnesium: avocado, almonds, spinach, cashews, bananas, pumpkin seeds, greens, brown rice, whole grains, salmon. Avoid acidic foods such as red sauces, spicy foods, onions, garlic, fried foods, coffee, alcohol, tomatoes (see handout). Your omeprazole dose has been increased. Do not lay flat, keep your head elevated. Follow up with your PCP as scheduled tomorrow. The General Surgery office is closed today, we will contact them to set up an appointment tomorrow. If you do not hear from them in the next couple of days, please call them. Your stress test appointment is Tuesday08/25/18, be sure to keep this appointment. Take care! Stand Alone Forms: Nursing Discharge Form Activity:: Activity as Tolerated Equipment/Supplies:: No Equipment Needed Diet:: Low acid. Discharge Orders Discharge Orders: Discharge Order (Routine); Ordered 08/23/18 Ordered By: Pao Garduno Other Ambulatory Orders: Magnesium (Routine) Timeframe: [id number] Facility: [facility] - Location: Laboratory Outpatient Ordered By: Pao Garduno Exam Narrative Exam Narrative: General: Pleasant female, anxious, sitting up in bed. Neurological: Alert and oriented x3, no focal deficits Psychiatric: anxious, appropriate speech pattern and content, answers questions appropriately, makes good eye contact. Skin: no bruises or rashes HEENT: Normocephalic, atraumatic, pupils equal and round, mucous membranes moist. Neck: supple, no JVD Lungs: Respirations even and unlabored. Gastrointestinal: abdomen soft, nontender, nondistended Extremities: no edema, clubbing or cyanosis of BLE's noted DS: Data Vitals/I&O Vitals and I&O: Vital Signs Temperature 36.4 C L 08/23/18 11:50 Temperature Source Tympanic 08/23/18 11:50 Pulse 84 08/23/18 11:50 Pulse Rhythm Regular 08/23/18 07:55 Pulse 86 08/21/18 07:50 Respiratory Rate 18 08/23/18 11:50 Respiratory Effort Non-Labored 08/23/18 07:55 Respiratory Depth Normal 08/23/18 07:55 Respiratory Pattern Normal 08/23/18 07:55 Blood Pressure 151/71 H 08/23/18 11:50 Blood Pressure Mean 84 08/22/18 08:29 Blood Pressure Position Supine 08/22/18 08:29 Pulse Oximetry 98 08/23/18 11:50 Oxygen Delivery Method Room Air 08/23/18 11:50 Oxygen Flow Rate 0 08/23/18 11:50 Pain Level 0 08/23/18 11:50 Comment 08/22/18 03:37 Intake & Output 08/22/18 08/23/18 08/23/18 23:59 11:59 23:59 Intake Total 1376.25 / 2878.75 855 / 1926.25 1071.25 / 1926.25 Output Total 1000 / 1600 800 / 800 Balance 376.25 / 1278.75 55 / 1126.25 1071.25 / 1126.25 Weight 84.5 kg Intake: IV 1136.25 / 1948.75 855 / 1686.25 831.25 / 1686.25 Oral 240 / 930 240 / 240 Output: Urine 1000 / 1600 800 / 800 Other: Urine Color Yellow Comment pt independent with toileting Pt up voiding in toilet independently. Voiding Methods Toilet Toilet Toilet Completed studies during hospitalization [Text1]: 08/21/18: PA AND LATERAL CHEST: 08/21 The heart is not enlarged. Note is made of mitral annulus calcification. The lungs are clear. No pleural effusion seen. CONCLUSION: No evidence of acute disease. 08/23/18: GASTRIC EMPTYING STUDY: Gastric emptying study was performed with ingestion of meal containing 0.9 mCi of technetium 99 labelled sulfur colloid. Residual radiopharmaceutical in the stomach at 1, 2 and 4 hours is 68%, 10% and 0.7%, respectively. These are in the normal predicted range. CONCLUSION: Normal gastric emptying study. Labs on day of discharge: Labs from last 24 hours 08/23/18 06:25 Sodium 141 Potassium 4.0 Chloride 107 Carbon Dioxide 26.8 Anion Gap 7.2 BUN 13 Creatinine 0.80 Estimated GFR/1.73 m2 >= 60.00 Glucose 155 H Calcium 8.4 L Magnesium 1.5 L Preliminary micro results at discharge 08/21/18 07:00 Blood Culture - Preliminary Blood NO GROWTH 48 HOURS 08/21/18 06:50 Blood Culture - Preliminary Blood NO GROWTH 48 HOURS [facility] Medical History History of tobacco abuse (Chronic) HO (nonalcoholic steatohepatitis) (Chronic) Hx of migraines (Chronic) Osteoarthritis (Chronic) Dyslipidemia (Chronic) GERD (gastroesophageal reflux disease) (Chronic) Hypertension (Chronic) Diabetes mellitus (Chronic) Benign hypertension Diabetes mellitus Hyperlipidemia Nonalcoholic steatohepatitis (HO) Transient ischemic attack Surgical History H/O hernia repair (Chronic) H/O unilateral oophorectomy (Chronic) H/O shoulder surgery (Chronic) H/O total hip arthroplasty (Chronic) Appendectomy Diagnostic Laproscopy Ligation of fallopian tube Oophrectomy, Right Rotator Cuff Repair repair wrist Family History Mother Diabetes Father Hypertensive disorder, systemic arterial Crohn's disease Stroke Social History Smoking/Tobacco Use Status: Former Tobacco Use substance use type: does not use additional social history: with 1 daughter. Retired from the [employer]. Former tobacco user. Reports social alcohol use only.
--- NOTE | 2018-08-24 09:42 | W.NUTRFU ---
Date of service: 08/23/18 Time of Service: 15:00 Nutritional Follow up NOTE: Reviewed nutrition therapy for GERD with Ms. Hayes. She verbalized that she already followed some of the recommendations but not all of them. She stated that she plans to be more compliant with keeping her HOB elevated for sleep and not eating three hours prior to sleep. She verbalized a good understanding of information. Provided written materials. Provided my contact information and encouraged her to call me with any questions or concerns regarding her nutrition therapy. Time Spent in Nutritional Counseling and Treatment: DEMETRICE
--- NOTE | 2018-08-24 12:16 | DM INPTCON_ITS ---
DESCRIPTION/ASSESSMENT: Appreicate diabetes consult for Ms. Hayes who is hospitalized with GI/heart symptoms to r/o gastroparesis and GERD as cause of heart symptoms/discomfort. Ms. Hayes manages her diabetes taking 1000mg Metformin twice daily and Pioglitazone. She reports trying several different medications. A1c 6.8 up from 6.5. Here blood sugars range 118-189 taking insulin correction at sensitive level. Ms. Hayes states she has books on diabetes and has had many educator sessions. She feels she does the best she can. INTERVENTION: Ms. Hayes has reasonable glycemic control here given she is off her usual medications. She declines self management support at this time and is focused on getting answers to what she considers pressing problems. PLAN: Follow blood sugars
== END 2018-08-23 16:54 | disposition home or self-care (01) ==
LOC: ER 12:55 → MS 14:56
PROVIDERS: Physician Assistant; Admitting Provider Internal Medicine; Emergency Provider Student in an Organized Health Care Education/Training Program; PCP Internal Medicine; Visit Provider Internal Medicine
DX: R07.89 Other chest pain (principal); K21.9 Gastro-esophageal reflux disease without esophagitis; E83.42 Hypomagnesemia; K92.0 Hematemesis; E11.43 Type 2 diabetes mellitus with diabetic autonomic (poly)neuropathy; K31.84 Gastroparesis; I10 Essential (primary) hypertension; E66.9 Obesity, unspecified; Z68.30 Body mass index [BMI] 30.0-30.9, adult; I34.0 Nonrheumatic mitral (valve) insufficiency
CPT/HCPCS: 36415; 78265; 80048; 80053; 83690; 85027; 87040; 96361; 96365; 96375; 99220; 99232; 99239; 99285; J1650; 71046; 81003; 83605; 83735; 83880; 84443; 84484; 85025; 99217; 99225; 99284; G0378; J2405; J2765; J3475

== ENCOUNTER 2018-08-25 09:45 | Outpatient (CLI) | payer MEDICARE, SELFPAY ==
[2018-08-25 10:55] LABS: Magnesium 1.5 mg/dL (1.8-2.4)
== END 2018-08-25 10:05 ==
PROVIDERS: PCP Internal Medicine; Visit Provider Nurse Practitioner
DX: E83.42 Hypomagnesemia (principal)
CPT/HCPCS: 36415; 83735

== ENCOUNTER 2018-09-02 22:38 | Emergency (ER) | payer MEDICARE, SELFPAY ==
[2018-09-02 22:48] VITALS: BP 133/90; PULSE 83; RESP 15; TEMP 36.6; O2SAT 96
--- NOTE | 2018-09-02 22:53 | DI.CT_ITS ---
SYMPTOMS/DIAGNOSIS: CHEST AND ABDOMINAL PAIN, NAUSEA, VOMITING CT SCAN OF THE CHEST, ABDOMEN AND PELVIS: CT angiography was performed with multi slice acquisition and multi planar and 3D reconstruction. Comparison 08/10/18. CT SCAN OF THE ABDOMEN AND PELVIS: There is no evidence of a hepatic mass. The portal and superior mesenteric veins are patent. The gallbladder is negative. No biliary ductal dilatation is seen. The pancreas, spleen and adrenal glands are unremarkable. The kidneys show normal and symmetric enhancement. No evidence of a solid renal mass or obstruction. The urinary bladder is intact. The reproductive organs are unremarkable. The bowel shows no evidence of obstruction or inflammation. No findings to suggest an acute appendicitis are present. There is atherosclerosis of the abdominal aorta but no aneurysmal dilatation is seen. Note is made of a retroaortic left renal vein. No significant abdominal or pelvic adenopathy, ascites or pneumoperitoneum is present. Degenerative changes are present in the spine. IMPRESSION: No evidence of an acute abdomen. CT SCAN OF THE CHEST: CT scan of the chest was performed according to the pulmonary embolus protocol. There is no evidence of a pulmonary embolus. The thoracic aorta is of normal caliber. No aneurysm or dissection is seen. The heart is mildly enlarged particularly the left atrium. No significant pericardial effusion is seen. Calcification of the mitral valve is noted. No right ventricular dysfunction is seen. No thoracic adenopathy is present. There are small bilateral pleural effusions. No pneumothorax is identified. The lungs show air space opacities predominantly in the lower lobes. No focal consolidating infiltrate is seen. No pneumothorax is identified. The tracheobronchial tree is unremarkable. Degenerative changes are seen in the spine. IMPRESSION: 1. No evidence of a pulmonary embolus, thoracic aortic dissection or aneurysm. 2. Small bilateral pleural effusions. 3. Bilateral pulmonary ground glass opacities. These are nonspecific. These may represent areas of air trapping but pneumonitis, atelectasis or edema can not be excluded.
--- NOTE | 2018-09-02 22:54 | ED.GENADUL_ITS ---
Discharge Plan Disposition Patient Disposition: HOME Discharge Details Chief Complaint: Chest Pain Clinical Impression: Hypomagnesemia, Mitral regurgitation, Gastroparesis Reason For Visit: chest pain / vomiting Primary Care Provider: Koby Trimble ED Provider: Anibal White Home Meds and New Rx's Prescriptions: New ondansetron HCl [Zofran] 4 mg tablet 4 mg PO TID PRN (Reason: nausea and vomiting) Qty: 30 RF: 0 furosemide [Lasix] 20 mg tablet 20 mg PO DAILY Qty: 30 RF: 0 lorazepam 1 mg tablet 1 mg PO BID PRN (Reason: dry heaving if zofran doesn't work) Qty: 14 RF: 0 No Action multivitamin [Daily Multi-Vitamin] 1 EACH tablet 1 ea PO DAILY RF: 0 simvastatin 20 MG tablet 40 mg PO DAILY RF: 0 metformin 1,000 MG tablet 1,000 mg PO BID RF: 0 vitamin E 400 UNIT capsule 400 unit PO DAILY RF: 0 ciclopirox [Loprox] 45 GM gel 45 gm Topical DAILY RF: 0 Martinic 1 EACH capsule 1 tab PO DAILY RF: 0 Ventolin HFA 90 mcg/actuation Hfa Aerosol Inhaler 2 puff Inhalation .Q4 HOURS PRNRF: 0 losartan 100 mg Tablet 100 mg PO DAILY RF: 0 cyanocobalamin (vitamin B-12) [Vitamin B-12] 1,000 mcg Tablet 1 tab PO DAILY RF: 0 acetaminophen [Mapap Extra Strength] 500 MG tablet 1,000 mg PO Q8H PRN PRNQty: 100 RF: 3 latanoprost 0.005 % Drops 1 drp ophthalmic (eye) DAILY RF: 0 pioglitazone [Actos] 30 mg Tablet 30 mg PO DAILY RF: 0 cholecalciferol (vitamin D3) [Vitamin D3] 1,000 unit Capsule 1,000 unit PO DAILY RF: 0 omega 0-lkc-jcv-fish oil [Fish Oil] 1,000 mg (120 mg-180 mg) Capsule 1,000 mg PO DAILY RF: 0 fluticasone [Flonase Allergy Relief] 50 mcg/actuation spray,suspension 1 spray CATALINA DAILY Qty: 16 RF: 0 magnesium chloride [Mag 64] 64 mg Tablet,Delayed Release (Dr/Ec) 64 mg PO BID Qty: 60 RF: 0 omeprazole 40 mg capsule,delayed release(DR/EC) 40 mg PO DAILY Qty: 30 RF: 0 Discharge Instructions Additional Instructions: Your blood work did not show any significant new findings. Your cat scan showed a small amount of fluid in your lung likely from your mitral regurgitation. I suspect your nausea and vomit is from your diabetic gastroparesis If you have nausea and vomit take the zofran. If after 30 minutes you still have nausea/vomit try taking the ativan follow up with your primary care provider in 1-2 weeks. Please go to the stress test that you are scheduled for if you have severe worsening pain, fevers or feel significantly more ill return to the emergency department Medical Decision Making 63 yo female with hx of htn, dm, gastroparesis, who has had two admissions recently for chest pain and n/v without significant findings, who comes in with n/v and chest burning that resolved earlier tonight. Is still having nausea and luq pain on exam. No fevers or chills. Will obtain labs to eval for anemia, electrolyte abnomalities, ekg unchanged, heart score is 3, will send troponin. She was scheduled to have outpatient stress test on 08/25 but was cancelled due to snow and is going to have one this tuesday per pt. Will image chest/abd/pelvis to eval for pe, dissection, ptx, sbo among other pathology. She does seem anxious so will tx with ativan and treat nausea with zofran pt feeling significantly better, no longer having nausea, lab show no acute abnormality, has chronic hypomagnesemia, mild hyponatremia and bnp of 600 was recently 400 and is likely from her MR. Awaiting imaging results CT shows no acute abodminal pathology, has small pleural effusions and groundglass opacities. Suspect this is related to her MR. She states she was on lasix but wasn't prescribed on d/c from the hospital so will resume this. She is hd stable for d/c, advised f/u with pcp for further management and referrals if needed for her gastroparesis and MR, and return if worsening. Medical Records Medical records reviewed: Yes I reviewed the patient's medical records. Imaging Data Radiologic Study: Attestation: I personally reviewed and interpreted this imaging study as follows: Imaging: CT Scan Radiologist's impression: vrad report reviewed Lab Data Lab results reviewed: Yes I reviewed the patient's lab results. ECG Data Attestation: I personally reviewed and interpreted this ECG (s) as follows: Prior ECG tracings: available for review Interpretation: sinus rhythm, rate of 88, pr 206, no acute st t wave changes when compared to old ekg HPI General Mode of arrival: ambulatory . Date/Time Provider Initiated Documentation: 09/02/18 22:39 . Limitations to Documentation: no limitations . Information obtained by: patient . History of Present Illness 63 year old F presents to the emergency department with the chief complaint of n/v, described as moderate, Quality is described as aching, and is localized to the chest and abdomen. and it has been other (improving). No relieving factors improve symptom(s), Patient did receive the following treatments prior to arrival, none Related Data Home Medications Medication Instructions Recorded Confirmed ciclopirox [Loprox] 45 gm TOPICAL DAILY NS 11/27/12 08/21/18 metformin 1,000 mg PO BID NS 11/27/12 09/02/18 multivitamin [Daily Multi-Vitamin] 1 ea PO DAILY NS 11/27/12 09/02/18 simvastatin 40 mg PO DAILY tab-cap NS 11/27/12 09/02/18 vitamin E 400 unit PO DAILY NS 11/27/12 09/02/18 Martinic 1 tab PO DAILY 12/08/12 08/21/18 acetaminophen [Mapap Extra 1,000 mg PO Q8H PRN PRN #100 tab 08/31/17 08/21/18 Strength] cholecalciferol (vitamin D3) 1,000 unit PO DAILY 07/07/18 09/02/18 [Vitamin D3] fluticasone [Flonase Allergy 1 spray CATALINA DAILY #16 gm 07/07/18 08/21/18 Relief] latanoprost 1 drp OPHTHALMIC (EYE) DAILY 07/07/18 08/21/18 omega 8-eej-yvj-fish oil [Fish Oil] 1,000 mg PO DAILY 07/07/18 09/02/18 pioglitazone [Actos] 30 mg PO DAILY 07/07/18 09/02/18 Ventolin HFA 2 puff INHALATION .Q4 HOURS PRN 08/17/18 08/21/18 cyanocobalamin (vitamin B-12) 1 tab PO DAILY 08/17/18 09/02/18 [Vitamin B-12] losartan 100 mg PO DAILY 08/17/18 09/02/18 magnesium chloride [Mag 64] 64 mg PO BID #60 tab 08/23/18 09/02/18 omeprazole 40 mg PO DAILY #30 cap 08/23/18 09/02/18 furosemide [Lasix] 20 mg PO DAILY #30 tab 09/03/18 lorazepam 1 mg PO BID PRN #14 tab 09/03/18 ondansetron HCl [Zofran] 4 mg PO TID PRN #30 tab 09/03/18 Previous Rx's Medication Instructions Recorded acetaminophen [Mapap Extra 1,000 mg PO Q8H PRN PRN #100 tab 08/31/17 Strength] fluticasone [Flonase Allergy 1 spray CATALINA DAILY #16 gm 07/07/18 Relief] magnesium chloride [Mag 64] 64 mg PO BID #60 tab 08/23/18 omeprazole 40 mg PO DAILY #30 cap 08/23/18 furosemide [Lasix] 20 mg PO DAILY #30 tab 09/03/18 lorazepam 1 mg PO BID PRN #14 tab 09/03/18 ondansetron HCl [Zofran] 4 mg PO TID PRN #30 tab 09/03/18 Allergies Allergy/AdvReac Type Severity Reaction Status Date / Time tetanus toxoid, adsorbed Allergy Severe Anaphylaxsi Unverified 08/21/18 06:13 s Latex, Natural Rubber Allergy Intermediate Hives, Unverified 08/21/18 06:13 bandaids General LINUS: 2 Review of Systems Review of Systems All systems reviewed & are unremarkable except as noted in HPI and below Constitutional Denies chills, Denies fever(s) and Denies weakness Eyes Denies loss of vision ENT Denies change in voice Gastrointestinal Denies nausea Musculoskeletal Denies joint swelling Neurologic Denies loss of vision and Denies weakness Psychiatric Denies depression Endocrine Denies heat intolerance Allergic/Immunologic Denies urticaria PFSH Medical History History of tobacco abuse (Chronic) HO (nonalcoholic steatohepatitis) (Chronic) Hx of migraines (Chronic) Osteoarthritis (Chronic) Dyslipidemia (Chronic) GERD (gastroesophageal reflux disease) (Chronic) Hypertension (Chronic) Diabetes mellitus (Chronic) Benign hypertension Diabetes mellitus Hyperlipidemia Nonalcoholic steatohepatitis (HO) Transient ischemic attack Family History Mother Diabetes Father Hypertensive disorder, systemic arterial Crohn's disease Stroke Social History Smoking/Tobacco Use Status: Former Tobacco Use substance use type: does not use additional social history: with 1 daughter. Retired from the [employer]. Former tobacco user. Reports social alcohol use only. Exam Const General: no acute distress Orientation: alert HENMT Head: normal to inspection Ears: external ears normal General nose exam: external nose normal Mouth: moist mucous membranes Eyes General: appearance normal, both eyes and all related structures Neck Neck: normal visual inspection Resp Effort & Inspection: normal respiratory effort and able to speak in complete sentences Cardio Rate: regular rate Skin General skin exam: no rashes or lesions noted Neuro General: alert and oriented x3 Extrem General: normal to inspection Psych Mental Status: mental status grossly normal
[2018-09-02] MEDS: Ondansetron 4 MG/2 ML VIAL IVP (22:57)
[2018-09-02] MEDS: LORazepam 2 MG/ML VIAL 1 MG IVP (22:57)
[2018-09-02 23:00] LABS: Abs Immature Grans 0.01 k/cumm (0.0-0.09); Absolute Basophil Count 0.01 k/cumm (0.0-0.2); Absolute Eosinophil Count 0.06 k/cumm (0.0-0.7); Absolute Lymphocyte Count 1.69 k/cumm (1.2-3.4); Absolute Monocyte Count 0.61 k/cumm (0.11-0.7); Absolute Neutrophil Count 5.49 k/cumm (1.2-6.7); Basophils % 0.1; Eosinophils % 0.8; HCT 36.4 % (36.0-46.0); HGB 12.7 g/dL (12.0-15.5); Immature Grans % 0.1; Lymphocytes % 21.5; Mean Corp. HGB Concentration 34.9 g/dL (32.0-36.0); Mean Corpuscular Hemoglobin 32.4 pg (27.0-33.0); Mean Corpuscular Volume 92.9 fL (80-95); Mean Platelet Volume 9.1 fL (8.0-11.0); Monocytes % 7.8; Neutrophils % 69.7; Platelet Count 287 x1000/uL (130-400); RBC 3.92 m/cumm (4.00-5.20); RBC Distribution Width 13.6 % (11.7-14.6); White Blood Cell Count 7.87 k/cumm (4.4-10.8)
[2018-09-02 23:09] LABS: INR 1.1 (0.9-1.1); Prothrombin Time 10.6 sec (9.3-11.0)
[2018-09-02 23:16] LABS: ALT 25 U/L (12-78); AST 19 U/L (15-37); Albumin 3.6 g/dL (3.4-5.0); Alkaline Phosphatase 47 U/L (46-116); Anion Gap 14.4 mmol/L (3-11); BUN 9 mg/dL (7-18); Bilirubin, Direct 0.24 mg/dL (0.00-0.20); Bilirubin, Total 0.7 mg/dL (0.2-1.0); CO2 21.6 mmol/L (21.0-32.0); Calcium 8.7 mg/dL (8.5-10.1); Chloride 94 mmol/L (98-107); Estimated GFR 49.85 (mL/min/1.73m2); Glucose 116 mg/dL (70-100); Lipase 92 U/L (73-393); NT-proBNP 622 pg/mL; Potassium 4.1 mmol/L (3.5-5.1); Sodium 130 mmol/L (136-145); Total Protein 7.1 g/dL (6.4-8.2)
[2018-09-02] MEDS: Omnipaque 350 MG/ML 100 ML BTL IJ (23:23)
[2018-09-02 23:25] LABS: Troponin I < 0.02 ng/mL (0.00-0.06)
--- NOTE | 2018-09-02 23:39 | DI.VRAD_ITS ---
EXAM: CT Angiography Chest With Contrast EXAM DATE/TIME: 09/02/2018 10:54 PM CLINICAL HISTORY: 63 years old, female; Pain; Abdominal pain; Chest pain TECHNIQUE: Axial computed tomographic angiography images of the chest with intravenous contrast using CT angiography protocol. Coronal and sagittal reformatted images were created and reviewed. MIP reconstructed images were created and reviewed. CONTRAST: 100 ml of Omnipaque 350 administered intravenously. COMPARISON: CT chest w 07/11/2018 2:13 PM FINDINGS: Pulmonary arteries: No pulmonary emboli. Aorta: Atherosclerotic thoracic aorta of normal caliber. Lungs: Bilateral groundglass opacities, possibly perfusional and/or air trapping. Bibasilar linear opacities of atelectasis and/or fibrosis. Pleural space: Small bilateral pleural effusions. Heart: Mitral valve calcifications. Coronary arterial calcifications. Lymph nodes: Unremarkable. No enlarged lymph nodes. Bones/joints: Unremarkable. No acute fracture. Soft tissues: Unremarkable. IMPRESSION: 1. Pulmonary arteries patent. 2. Small bilateral pleural effusions. Bilateral groundglass opacities, likely perfusional and/or areas of air trapping. EXAM: CT Abdomen and Pelvis With Contrast EXAM DATE/TIME: 09/02/2018 10:54 PM CLINICAL HISTORY: 63 years old, female; Pain; Abdominal pain; Chest pain TECHNIQUE: Axial computed tomography images of the abdomen and pelvis with intravenous contrast. Coronal and sagittal reformatted images were created and reviewed. CONTRAST: 100 ml of Omnipaque 350 administered intravenously. COMPARISON: CT chest w 07/11/2018 2:13 PM FINDINGS: Lower thorax: No acute findings. ABDOMEN: Liver: Mild nodularity of the liver edge. Gallbladder and bile ducts: No calcified stones. No ductal dilation. Pancreas: Unremarkable. No ductal dilation. Spleen: Unremarkable. No splenomegaly. Adrenals: Unremarkable. No mass. Kidneys and ureters: Unremarkable. No hydronephrosis. Stomach and bowel: Unremarkable. No obstruction. No mucosal thickening. Appendix: No evidence of appendicitis. PELVIS: Bladder: Unremarkable as visualized. Reproductive: Unremarkable as visualized. ABDOMEN and PELVIS: Intraperitoneal space: No free air. No significant fluid collection. Bones/joints: Status post left hip replacement. Mild degenerative changes within the thoracic and lumbar spine. Soft tissues: Unremarkable. Vasculature: Atherosclerotic abdominal aorta and branches. Lymph nodes: No enlarged lymph nodes. IMPRESSION: No acute intra-abdominal pathology. Dictated and Authenticated by: Tommy Yarbrough MD. Ordering:ONOFRE Barnett MD
[2018-09-02] MEDS: MAGNESIUM SULFATE 1 GM/100 ML BAG IVPB (23:40)
[2018-09-02 23:41] VITALS: BP 134/56; PULSE 86; RESP 16; O2SAT 94
--- NOTE | 2018-09-02 23:41 | NUR.NOTE ---
patient returned from CT,placed on cardiac momnitor Nursing Note:
[2018-09-02] MEDS: Magnesium Oxide 400 MG TAB PO (23:52)
[2018-09-03] MEDS: Furosemide 20 MG TAB PO (00:02)
[2018-09-03] MEDS: LORazepam 1 MG TAB (00:48)
[2018-09-03] MEDS: Furosemide 20 MG TAB (00:48)
[2018-09-03] MEDS: Ondansetron O.D.T. 4 MG TABEF (00:49)
--- NOTE | 2018-09-04 07:50 | CMPROGNOTE_ITS ---
Care Management Progress Note 09/04-Dr. White requested assistance with a PCP (Dr. Trimble) f/u in one week for gastral paresis. Referral faxed to [facility] this am.
== END 2018-09-03 00:49 | disposition home or self-care (01) ==
LOC: ER 09-03 00:58
PROVIDERS: Emergency Provider Emergency Medicine; PCP Internal Medicine
DX: R11.2 Nausea with vomiting, unspecified (principal); R10.12 Left upper quadrant pain; E11.43 Type 2 diabetes mellitus with diabetic autonomic (poly)neuropathy; E83.42 Hypomagnesemia; I34.0 Nonrheumatic mitral (valve) insufficiency; Z79.84 Long term (current) use of oral hypoglycemic drugs; I10 Essential (primary) hypertension
CPT/HCPCS: 36415; 71275; 74177; 80053; 80076; 83690; 93005; 96365; 96375; 99285; 83735; 83880; 84484; 85025; 85610; 85730; 93010; J2060; J2405; J3475; J3490

== ENCOUNTER 2018-09-13 00:08 | Outpatient (CLI) | payer MEDICARE, SELFPAY ==
--- NOTE | 2018-09-13 08:15 | MERGEMPI_ITS ---
*[facility]* *[facility]* [address] [place] [address] Myocardial Perfusion Imaging - SPECT Regadenoson Date of study: 09/13/2018 *PATIENT PRESENTATION* Height: 154.9cm (61in) Blood Pressure: Weight: 79.1kg (174lb) BSA: 1.88m^2 Referring physician: Sudhakar Cantu Ordering physician: Stephenie Almendarez Impressions: Normal study after pharmacologic stress. Summary: 1. Myocardial perfusion imaging: No myocardial perfusion defects noted. 2. The calculated left ventricular ejection fraction after stress: 56%. LV global systolic function is normal. No left ventricular regional motion abnormality. 3. Stress ECG conclusions: The stress ECG is negative. Indication: R07.9. History: REASON FOR TESTING: STRESS TEST ORDERED BY DR. WILLIAM. PATIENT IN ER 09/02/18 FOR CHEST PAIN, RULED OUT FOR ACS THIS ER VISIT. SIGNIFICANT PAST MEDICAL HISTORY: GERD. SMOKING STATUS: QUIT 2007. 15 YEAR HISTORY. EXERCISE ROUTINE: DAILY ADL'S. Risk factors: Family history of coronary artery disease. Diabetes mellitus. Obesity. Dyslipidemia. ALLERGIES: TETANUS. LATEX. MEDICATIONS: METFORMIN HCL 1500 MG IN MORNING AND 1000 MG IN EVENING, PIOGLITAZONE HCL 30 MG DAILY, OMEPRAZOLE 40 MG DAILY, LOSARTAN 100 MG EVENING, SIMVASTATIN 40 MG HS, MAGNESIUM CHLORIDE 64 MG BID, MULTIVITAMIN DAILY, FUROSEMIDE 20 MG DAILY, METOCLOPRAMIDE 10 MG TID. LORAZEPAM 1 MG PRN, ZOFRAN 4 MG PRN, ASPIRIN 325 MG DAILY. Imaging Technique: Protocol: Regadenoson. Acquisition: Gated SPECT; 1 day - rest/stress. The patient was imaged in the supine position. Attenuation correction used. Isotope administration: - Rest. Tc[99m]-sestamibi. Dose: 10.6mCi. Injection time: 08:00 AM. Injection to stress time: 00:45. - Stress. Tc[99m]-sestamibi. Dose: 30.9mCi. Injection time: 10:50 AM. 1-2 min before end of exercise Baseline ECG: SINUS RHYTHM. HR 75. T WAVE INVERSIONS IN LEAD III. RARE PVC AT BASELINE. Normal ECG. Stress protocol: +--------+---+ + + !Stage !HR !BP (mmHg) !Comments ! +--------+---+ + + !Baseline!75 !138/60 (86) ! ! +--------+---+ + + !1 min !111!150/60 (90) !Inject Regadenoson.! +--------+---+ + + !3 min !114!150/80 (103)! ! +--------+---+ + + !6 min !102!160/50 (87) ! ! +--------+---+ + + !10 min !94 !138/50 (79) ! ! +--------+---+ + + * Stress results: The rate-pressure product for the peak heart rate and blood pressure was 50714qu Hg/min. Stress ECG: STRESS TEST ENDED IN 12 MINUTES 2 SECONDS. NORMAL HEART RATE AND BLOOD PRESSURE RESPONSE TO LEXISCAN INFECTION. NAUSEA IMMEDIATELY POST LEXISCAN INJECTION. RETCHING AT 3 MINUTES POST LEXISCAN INJECTION. NO ECTOPY. NO ANGINA. NAUSEA SUBSIDED BY 8 MINUTES POST LEXISCAN INJECTION. NO SIGNIFICANT ST SEGMENT CHANGES. The stress ECG is negative. Myocardial perfusion: Imaging information: gated. Left ventricular size is normal. No myocardial perfusion defects noted. Ventricular Function (Wall Motion): The calculated left ventricular ejection fraction after stress: 56%. LV global systolic function is normal. No left ventricular regional motion abnormality. Study data: Bryan Mckeon MD supervised and was readily available during the procedure. This study was interpreted by [facility]. Study status: Routine. Consent: The risks, benefits, and alternatives to the procedure were explained to the patient and informed consent was obtained. Procedure: Initial setup. A baseline ECG was recorded. Surface ECG leads and manual cuff blood pressure measurements were monitored. Heart sounds: Normal. Lung sounds: Normal. Regadenoson stress test. Stress testing was performed, with regadenoson by intravenous bolus, for a total dose of 0.4mgover 10.00sec, followed by a 5ml saline flush. The infusion was terminated due to per protocol. Study completion: All catheters inserted during the procedure were removed. The patient tolerated the procedure well and was discharged from the lab. Discharge: The patient left the laboratory in stable condition. Birthdate: Patient birthdate: 1955. Sex: Gender: female. Study date: Study date: 09/13/2018. Study time: 08:15 AM. Signature Documentation: - The imaging portion of this study was interpreted by [employer] Author Bryan Mckeon MD. - The Stress ECG portion of this study was interpreted by Bryan Mckeon MD. Electronically signed by Bryan Mckeon 09/13/2018 14:53
[2018-09-13] MEDS: Regadenoson 0.4 MG/5 ML SYR IVP (11:10)
== END 2018-09-13 00:28 ==
PROVIDERS: PCP Internal Medicine; Visit Provider Physician Assistant
DX: R07.9 Chest pain, unspecified (principal); I10 Essential (primary) hypertension; E11.9 Type 2 diabetes mellitus without complications; E78.5 Hyperlipidemia, unspecified; Z82.49 Family history of ischemic heart disease and other diseases of the circulatory system
CPT/HCPCS: 78452; 93016; 93018; 93017; J2785

== ENCOUNTER → 2019-01-05 10:34 | Outpatient (BNVA) | payer MEDICARE, SELFPAY | PROVIDERS: PCP Internal Medicine; Referring Provider Internal Medicine; Visit Provider Student in an Organized Health Care Education/Training Program | DX: M70.62 Trochanteric bursitis, left hip (principal); M17.12 Unilateral primary osteoarthritis, left knee; I10 Essential (primary) hypertension; E11.9 Type 2 diabetes mellitus without complications; Z79.84 Long term (current) use of oral hypoglycemic drugs | CPT/HCPCS: 20610; 99212; 99213; J1040 ==

== ENCOUNTER 2020-01-31 13:00 | Outpatient (REF) | payer MEDICARE, SELFPAY ==
[2020-01-31 19:20] LABS: HCT 37.6 % (36.0-46.0); HGB 12.7 g/dL (12.0-15.5); Mean Corp. HGB Concentration 33.8 g/dL (32.0-36.0); Mean Corpuscular Hemoglobin 31.1 pg (27.0-33.0); Mean Corpuscular Volume 91.9 fL (80-95); Platelet Count 273 x1000/uL (130-400); RBC 4.09 m/cumm (4.00-5.20); RBC Distribution Width 13.5 % (11.7-14.6); White Blood Cell Count 5.36 k/cumm (4.4-10.8)
[2020-01-31 19:40] LABS: Anion Gap 8.6 mmol/L (3-11); BUN 14 mg/dL (7-18); CO2 26.4 mmol/L (21.0-32.0); CREATININE 0.88 mg/dL (0.55-1.02); Calcium 8.7 mg/dL (8.5-10.1); Chloride 105 mmol/L (98-107); Glucose 131 mg/dL (74-106); Potassium 4.7 mmol/L (3.5-5.1); Sodium 140 mmol/L (136-145); TSH 1.27 uIU/mL (0.36-3.74)
[2020-01-31 20:49] LABS: Microalb ug/mg Crea 18.3 ug/mg Cr
== END 2020-01-31 13:20 ==
LOC: NCHCN 13:00
PROVIDERS: PCP Internal Medicine; Visit Provider Internal Medicine
DX: I10 Essential (primary) hypertension (principal); E11.9 Type 2 diabetes mellitus without complications; K21.9 Gastro-esophageal reflux disease without esophagitis; E66.9 Obesity, unspecified
CPT/HCPCS: 80048; 85027; 82043; 82570; 84443

== ENCOUNTER → 2020-02-01 08:36 | Outpatient (BNVA) | payer MEDICARE, SELFPAY | PROVIDERS: PCP Internal Medicine; Referring Provider Internal Medicine; Visit Provider Student in an Organized Health Care Education/Training Program | DX: M17.12 Unilateral primary osteoarthritis, left knee (principal); M70.62 Trochanteric bursitis, left hip; E11.9 Type 2 diabetes mellitus without complications; Z79.84 Long term (current) use of oral hypoglycemic drugs; I10 Essential (primary) hypertension | CPT/HCPCS: 20610; 99213; J1040 ==

== ENCOUNTER 2020-11-04 19:40 | Outpatient (REF) | payer MEDICARE, SELFPAY ==
[2020-11-06 13:16] LABS: COVID-19 RT-PCR UVMMC Result Positive (Negative)
== END 2020-11-04 19:41 | disposition home or self-care (01) ==
LOC: NCHCN 19:40
PROVIDERS: PCP Internal Medicine; Visit Provider Internal Medicine
DX: Z20.822 Contact with and (suspected) exposure to COVID-19 (principal)
CPT/HCPCS: U0003

== ENCOUNTER → 2020-11-19 09:42 | Outpatient (BNVA) | payer MEDICARE, SELFPAY | PROVIDERS: PCP Internal Medicine; Referring Provider Internal Medicine; Visit Provider Physician Assistant | DX: M17.12 Unilateral primary osteoarthritis, left knee (principal); M70.62 Trochanteric bursitis, left hip | CPT/HCPCS: 20610; J1040 ==